=== PATIENT | female | born 1995 | race Caucasian/White ===

== ENCOUNTER → 2021-02-26 15:54 | Outpatient (CLI) | payer MEDICAID, SELFPAY ==
[2021-02-26 18:23] LABS: Absolute Lymphocyte Count 1.27 X10^3/uL (0.83-4.51); Absolute Neutrophil Count 3.9 X10^3/uL (2.0-7.7); Basophil# 0.01 X10^3/uL; Basophil% 0.2 % (0-1); Eosinophil# 0.07 X10^3/uL; Eosinophils% 1.2 % (0-5); Hematocrit 38.7 % (37-47); Hemoglobin 12.3 g/dL (12.0-15.0); Lymphocyte # 1.27 X10^3/ul (0.83-4.51); Lymphocyte % 22.4 % (19-41); Mean Corp Hgb Conc 31.8 g/dL (32-36); Mean Corpuscular Hgb 27.9 pg (27.0-32.0); Mean Corpuscular Volume 87.8 fL (81-99); Mean Platelet Vol. 11.4 fl (6.2-12.0); Monocyte# 0.37 X10^3/uL; Monocyte% 6.5 % (0-10); NRBC Flagged by Analyzer 0 % (0-5); Neutrophil # 3.94 X10^3/uL (2.7-7.7); Neutrophil % 69.5 % (47-70); Platelet Count 177 K/mm3 (150-450); RBC Distribution Width CV 13.5 % (11.6-14.6); RBC Distribution Width SD 43.8 fl (35.1-43.9); Red Blood Count 4.41 M/mm3 (4.2-5.4); White Blood Count 5.7 K/mm3 (4.4-11.0)
[2021-02-27 08:51] LABS: HIV - WCH Non-Reactive (Nonreactive); Hepatitis B Surface Antigen Non-Reactive (Nonreactive); Hepatitis C Antibody Non-Reactive (Nonreactive); Rubella IgG Reactive (Nonreactive); Syphilis Antibodies Non-reactive
[2021-03-01 03:07] LABS: Chlamydia By Nucleic Acid AMP Negative (Negative)
[2021-03-01 13:54] LABS: Gonococcus By Nucleic Acid AMP Negative (Negative)
[2021-03-06 07:43] LABS: HPV APTIMA, High Risk Negative (Negative)
[2021-03-06 07:44] LABS: HPV Reflexed? YES, CHARGE PATIENT
== END ==
PROVIDERS: Visit Provider Obstetrics & Gynecology
DX: Z34.82 Encounter for supervision of other normal pregnancy, second trimester (principal); Z12.4 Encounter for screening for malignant neoplasm of cervix; Z11.3 Encounter for screening for infections with a predominantly sexual mode of transmission
CPT/HCPCS: 36415; 85025; 86703; 86762; 86780; 86803; 87077; 87086; 87088; 87186; 87340; 87491; 87591; 87624; 88175; G0145

== ENCOUNTER 2021-04-13 10:53 | Day surgery (SDC) | payer MEDICAID, SELFPAY ==
[2021-04-12 17:09] LABS: Hematocrit 34.2 % (37-47); Mean Corp Hgb Conc 32.2 g/dL (32-36); Mean Corpuscular Hgb 28.2 pg (27.0-32.0); Mean Corpuscular Volume 87.7 fL (81-99); Platelet Count 207 K/mm3 (150-450); RBC Distribution Width CV 13.2 % (11.6-14.6); RBC Distribution Width SD 42.1 fl (35.1-43.9); White Blood Count 9.2 K/mm3 (4.4-11.0)
[2021-04-13] VITALS (7 sets, daily range): BP systolic 96–104; BP diastolic 54–58; PULSE 54–63; RESP 16; TEMP 36.3–36.7; O2SAT 99–100; BMI 22.1
[2021-04-13] MEDS: Lactated Ringers 1,000 ML 100 ML IV (12:05)
--- NOTE | 2021-04-13 12:30 | POC_PTH ---
PATIENT: PETE STEWART LOC: [facility] [place][id number] AGE/SX: 25/F ROOM: RE04/13/[address]: Dr. René Ruby MD : 1995 BED: DIS: 04/13/2021 SPEC #: [id number] RECD: 04/13/21 13:50 STATUS: LANDON NGUYEN #: [id number] LOREN: 04/13/21 12:[address]: René Ruby DEPT: SURGICAL PATHOLOGY RECD BY: Sherri Giron Tissues: Product of conception, NOS Procedures: Surgery Specimen Level IV HEADER OPERATION: Suction dilation and curettage PRE-OP DIAGNOSIS: Incomplete TISSUE SUBMITTED: Products of conception MICROSCOPIC DIAGNOSIS Endometrium, curettage: Chorionic villi, trophoblastic cells and decidualized tissue consistent with products of conception. AM:diego 04/17/2021 MICROSCOPIC DESCRIPTION Slides are reviewed. GROSS DESCRIPTION Received in fixative is one container labeled with the patient's name and designated products of conception. The specimen consists of multiple irregular fragments of red to dark chamorro soft tissue that in aggregate measure 6 x 5 x 0.3 cm. The specimen is totally submitted in three cassettes. / AM:diego 04/16/21 TC:5 CPT: 74473
--- NOTE | 2021-04-13 12:31 | PCM.HP.BLA ---
History and Physical Date of Admission: 04/13/21 Chief complaint: Incomplete History of present illness: 25-year-old G1, P0 with EDUARDO 10/20/2021 by 6wk u/s arrives with incomplete . Denies headache, vision change, chest pain, shortness of breath, nausea vomiting. Obstetric history: G1: Current Past medical history: Denies Medications: vitamin Past surgical history: [place] teeth extraction Allergies: No known drug allergies Social history: Denies smoking, alcohol use, drug use Family history: Denies history DVT or PE Review of systems: Besides above pertinent positives a full review of systems was performed and found to be negative Physical exam: Vitals: Blood pressure 104/55 pulse 63 respiratory rate 16 SpO2 100% on room air General: Normal-appearing no acute distress HEENT: Normocephalic atraumatic no cervical of adenopathy Cardiac/respiratory: No use of accessory muscles, nonlabored breathing Abdomen: Soft, nontender, gravid Extremities: No peripheral edema normal peripheral pulses Psych: Normal affect normal demeanor nonpressured speech Labs: White blood cell count 9.2 hemoglobin 11 hematocrit 34.2% platelets 207 blood type A+ antibody negative Assessment plan: 25-year-old with incomplete in need of suction dilation curettage. Patient understands risk of the procedure include but are not limited to visceral or vascular injury, prolonged hospitalization, blood loss need for transfusion, reoperation. Patient state understanding wish to proceed. Patient declines genetic training of tissue. All questions were answered consent was signed. For 200 mg of IV doxycycline preoperatively.
--- NOTE | 2021-04-13 13:15 | PCM.DC ---
Discharge Instructions Diet Discharge Diet: No restrictions Activity Discharge Activity: Return to Normal Activity, May Drive and May Shower May resume sexual activity in: 4-6 weeks Weight Bearing Status: Weight bearing as tolerated Dressing / Incision Call your doctor if your incision/area has: Continuous Slow Oozing and Foul Smelling Discharge Call your doctor if you observe: Fever of 101 or Higher, Shortness of breath and Chest pain Follow Up Care Please Follow Up With: René Ruby MD When: 2 weeks postoperatively Test Results: Test results from this visit will be discussed in further detail at your follow-up appointment, if applicable. Discharge Plan Admission Attending Provider: René Ruby Discharge Orders/Prescriptions Prescriptions: No Action pyridoxine (vitamin B6) [Vitamin B-6] 25 mg tablet 25 mg PO DAILY RF: 0 Disposition Discharge Orders: Discharge Patient (Routine); Ordered 04/13/21 Ordered By: Dr. René Ruby
--- NOTE | 2021-04-13 13:16 | PCM.OPRPT ---
Report of Operation Date of Procedure: 04/13/21 Pre-Operative Diagnosis: Incomplete Post-Operative Diagnosis: Incomplete Surgery/Procedure Performed:: Suction dilation curettage Description of Surgical Findings:: Surgeon: René Ruby MD Anesthesia: MAC EBL: 50 cc Urine output 125 cc IV fluids: 300 cc Complications none Specimen: Products of conception Findings: No bleeding noted at time of surgery. Cervix closed. 7 mm curved curette used. Products of conception sent to pathology Consent: Patient with incomplete elects for suction dilation curettage. Patient understands risk of the procedure include but are not limited to visceral or vascular injury, prolonged hospitalization, blood loss need for transfusion, reoperation. Patient stated understanding wished to proceed. All questions answered and consent was signed. Procedure: Patient was brought back to the OR where MAC anesthesia was found to be adequate. Patient was prepared and draped in dorsal lithotomy position with yellowfin stirrups. A weighted speculum is placed in the posterior aspect of the vagina and cervical dilators were used to dilate the cervix. 7 mm curved suction curette was used under direct visualization. Products of conception sent to pathology. Good hemostasis was noted. All counts correct x2. Patient tolerated the procedure well was brought to recovery in stable condition.
== END 2021-04-13 14:10 | disposition home or self-care (01) ==
LOC: SDC 10:57 → AC 10:58
PROVIDERS: Anesthesiology; Referring Provider Obstetrics & Gynecology; Visit Provider Obstetrics & Gynecology
PROC: (CPT 59812; principal; 2021-04-13 12:15)
DX: O03.4 Incomplete spontaneous abortion without complication (principal)
CPT/HCPCS: 59812; 36415; 85027; 86850; 86900; 86901; 87426; 88305; C9803; J7120; J2405

== ENCOUNTER → 2021-08-08 15:24 | Outpatient (CLI) | payer MEDICAID, SELFPAY ==
[2021-08-08 17:23] LABS: Absolute Lymphocyte Count 1.77 X10^3/uL (0.83-4.51); Absolute Neutrophil Count 6.3 X10^3/uL (2.0-7.7); Basophil# 0.02 X10^3/uL; Basophil% 0.2 % (0-1); Eosinophil# 0.06 X10^3/uL; Eosinophils% 0.7 % (0-5); Hematocrit 41.2 % (37-47); Hemoglobin 13.3 g/dL (12.0-15.0); Lymphocyte # 1.77 X10^3/ul (0.83-4.51); Lymphocyte % 20.3 % (19-41); Mean Corp Hgb Conc 32.3 g/dL (32-36); Mean Corpuscular Hgb 27.1 pg (27.0-32.0); Mean Corpuscular Volume 84.1 fL (81-99); Mean Platelet Vol. 12.2 fl (6.2-12.0); Monocyte# 0.54 X10^3/uL; Monocyte% 6.2 % (0-10); NRBC Flagged by Analyzer 0 % (0-5); Neutrophil # 6.28 X10^3/uL (2.7-7.7); Neutrophil % 72.3 % (47-70); POSITIVE COUNT YES; Platelet Count 153 K/mm3 (150-450); RBC Distribution Width CV 14.4 % (11.6-14.6); RBC Distribution Width SD 43.9 fl (35.1-43.9); White Blood Count 8.7 K/mm3 (4.4-11.0)
[2021-08-08 17:46] LABS: Differential Indicated SCAN CRITERIA MET
[2021-08-08 17:47] LABS: Differential Comment SCANNED
[2021-08-08 18:23] LABS: HIV - WCH Non-Reactive (Nonreactive); Hepatitis B Surface Antigen Non-Reactive (Nonreactive); Hepatitis C Antibody Non-Reactive (Nonreactive); Rubella IgG Reactive (Nonreactive); Syphilis Antibodies Non-reactive
[2021-08-11 00:06] LABS: Chlamydia By Nucleic Acid AMP Negative (Negative)
[2021-08-11 12:57] LABS: Gonococcus By Nucleic Acid AMP Negative (Negative)
== END ==
PROVIDERS: Visit Provider Obstetrics & Gynecology
DX: Z34.81 Encounter for supervision of other normal pregnancy, first trimester (principal); Z11.3 Encounter for screening for infections with a predominantly sexual mode of transmission
CPT/HCPCS: 36415; 85025; 86703; 86762; 86780; 86803; 87086; 87088; 87340; 87491; 87591

== ENCOUNTER 2021-12-04 11:03 | Outpatient (CLI) | payer MEDICAID, SELFPAY ==
[2021-12-04 11:42] LABS: Hematocrit 32.4 % (37-47); Hemoglobin 10.2 g/dL (12.0-15.0); Mean Corp Hgb Conc 31.5 g/dL (32-36); Mean Corpuscular Hgb 27.5 pg (27.0-32.0); Mean Corpuscular Volume 87.3 fL (81-99); Mean Platelet Vol. 11.4 fl (6.2-12.0); Platelet Count 185 K/mm3 (150-450); RBC Distribution Width SD 41.1 fl (35.1-43.9); Red Blood Count 3.71 M/mm3 (4.2-5.4); White Blood Count 9.3 K/mm3 (4.4-11.0)
[2021-12-04 12:01] LABS: Glucose Challenge Gest 1H 50g 99 mg/dL (70-140)
== END 2021-12-04 23:59 | disposition home or self-care (01) ==
LOC: WOBLAB 11:04
PROVIDERS: Visit Provider Obstetrics & Gynecology
DX: Z34.82 Encounter for supervision of other normal pregnancy, second trimester (principal)
CPT/HCPCS: 36415; 82950; 85027

== ENCOUNTER → 2022-02-26 | Outpatient (CLI) | payer MEDICAID, SELFPAY | END | disposition home or self-care (01) | PROVIDERS: Visit Provider Obstetrics & Gynecology | DX: Z36.85 Encounter for antenatal screening for Streptococcus B (principal) | CPT/HCPCS: 87077; 87081; 87186 ==

== ENCOUNTER 2022-03-13 02:00 | Outpatient (CLI) | payer MEDICAID, SELFPAY ==
[2022-03-13 02:25] VITALS: BP 108/58; PULSE 81; TEMP 36.7
[2022-03-13 02:28] VITALS: BMI 28.6
[2022-03-13 03:03] LABS: ROM Internal Control Test YES-OK TO RESULT pt. (Internal QC); ROM Patient Test Negative (Negative)
--- NOTE | 2022-03-13 07:00 | OB.TRI.NOTE ---
HPI - General General Date of Admission: 03/13/22 Date of Service: 03/13/22 Chief Complaint: leaking of fluid HPI Narrative PETE STEWART, is a 26 F who presents with c/o possible leaking of amniotic fluid at 38 3/7 wga by 7w US (EDUARDO 03/24/22) [facility] Medical History (Updated 03/14/22 @ 08:[address] Marcella Aranda MD) Alcohol use Back pain Dizziness Migraine headache Non-smoker Wears glasses Allergy/AdvReac Type Severity Reaction Status Date / Time No Known Allergies Allergy Verified 03/13/22 02:28 Surgical History (Updated 04/12/21 @ 13:33 by Anusha Perez) Hx of myringotomy Hx of wisdom tooth extraction Social History Smoking Status: Never smoker NST FHR Rate Baby A Baseline: 130 Variability:: Moderate Accelerations:: 15 x 15 Decelerations:: None NST Reactive:: Yes FHR Category:: Category I Uterine Activity:: 0/10 Assessment & Plan (1) 38 weeks gestation of : (2) False labor: PLAN: ROM plus negative d/c home
== END 2022-03-13 03:50 | disposition home or self-care (01) ==
LOC: WPOUT 02:10 → WP 02:10
PROVIDERS: Visit Provider Obstetrics & Gynecology
DX: O47.1 False labor at or after 37 completed weeks of gestation (principal); Z3A.38 38 weeks gestation of pregnancy
CPT/HCPCS: 59025; 59050; 84112; 99218; G0378

== ENCOUNTER 2022-03-29 00:06 | Inpatient (IN) | payer MEDICAID, SELFPAY ==
[2022-03-28 23:34] VITALS: BP 117/58; PULSE 82
[2022-03-28 23:37] VITALS: BMI 28.9
[2022-03-29] VITALS (54 sets, daily range): BP systolic 91–132; BP diastolic 54–94; PULSE 67–91; RESP 16; TEMP 36.2–36.7; O2SAT 88–100
[2022-03-29 00:05] LABS: ROM Internal Control Test YES-OK TO RESULT pt. (Internal QC)
[2022-03-29 00:06] LABS: ROM Patient Test POSITIVE (Negative)
[2022-03-29 00:43] LABS: Absolute Lymphocyte Count 1.89 X10^3/uL (0.83-4.51); Absolute Neutrophil Count 7.8 X10^3/uL (2.0-7.7); Basophil# 0.02 X10^3/uL; Basophil% 0.2 % (0-1); Eosinophil# 0.08 X10^3/uL; Eosinophils% 0.8 % (0-5); Hematocrit 28.4 % (37-47); Hemoglobin 8.4 g/dL (12.0-15.0); Lymphocyte # 1.89 X10^3/ul (0.83-4.51); Lymphocyte % 17.8 % (19-41); Mean Corp Hgb Conc 29.6 g/dL (32-36); Mean Corpuscular Hgb 20.5 pg (27.0-32.0); Mean Corpuscular Volume 69.4 fL (81-99); Mean Platelet Vol. 10.5 fl (6.2-12.0); Monocyte# 0.62 X10^3/uL; Monocyte% 5.8 % (0-10); NRBC Flagged by Analyzer 0.7 % (0-5); Neutrophil % 73.2 % (47-70); Platelet Count 227 K/mm3 (150-450); RBC Distribution Width CV 19.2 % (11.6-14.6); RBC Distribution Width SD 46.5 fl (35.1-43.9); Red Blood Count 4.09 M/mm3 (4.2-5.4); White Blood Count 10.6 K/mm3 (4.4-11.0)
[2022-03-29] MEDS: Lactated Ringers 1,000 ML 50 ML IV (00:48)
[2022-03-29] MEDS: LACTATED RINGERS 500 ML 999 ML IV ×3 (03:14→10:14)
[2022-03-29] MEDS: fentaNYL-bupivacaine (epidural) 100 ML BAG EPIDURAL ×2 (04:26→08:24)
[2022-03-29] MEDS: Penicillin G 3,000,000 Units 50 ML 100 UNITS IV ×2 (04:31→08:36)
[2022-03-29] MEDS: Oxytocin 30 units/NS 500 ml 30 UNITS/500 ML IV.SOLN IV (07:20)
--- NOTE | 2022-03-29 07:59 | PCM.HP.BLA ---
History and Physical Date of Admission: 03/29/22 HPI: 26-year-old G2, P0 at 40/5 weeks, EDUARDO 03/24/2020 2 by 7-week ultrasound, admitted for spontaneous rupture of membranes. Water broke around 2300 last night. Denies regular contractions, vaginal bleeding. Reports movement. Denies headache, vision changes, chest pain or shortness of breath, nausea or vomiting, fevers or chills, diarrhea or constipation. 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 [place] teeth extraction 2. Suction D&C Allergies: No known drug allergies Family history: Noncontributory Social history: Denies tobacco, alcohol, drug use Review of system: Negative otherwise stated above Physical exam: FHR: [place]: labs: A positive Rubella immune Syphilis nonreactive HIV nonreactive Hepatitis B/hepatitis C negative/negative Gonorrhea/chlamydia negative GBS positive Assessment & Plan Assessment/Plan (1) Spontaneous rupture of membranes: PLAN: 26-year-old at 40/5 weeks, admitted for spontaneous rupture of membranes. ? Admit to labor and delivery. ? Penicillin for GBS prophylaxis ? Augment labor with Pitocin ? Routine orders ? Anemia of . Hemoglobin 8.4 today. (2) Anemia affecting :
[2022-03-29] MEDS: Lactated Ringers 1,000 ML 200 ML IV (08:24)
[2022-03-29] MEDS: Oxytocin 30 units/NS 500 ml 30 UNITS/500 ML IV.SOLN 334 UNITS IV (10:52)
--- NOTE | 2022-03-29 11:07 | EX.PCM.OBRPT ---
Maternal Data Information Final EDUARDO: 03/24/22 Vaginal Delivery Operative Information Date of Procedure: 03/29/22 Pre-Operative Diagnosis: Single intrauterine at term Post-Operative Diagnosis: Single intrauterine at term Surgery / Procedure Performed: Spontaneous Vaginal Delivery Type of Anesthesia: Epidural Estimated Blood Loss: 350cc Findings Description of Procedure: Spontaneous vaginal delivery of viable infant female. Nuchal cord x1, loose, reduced. Cord clamped and cut, baby to nursing as patient wanted baby cleaned before going to her chest. Spontaneous delivery of placenta. Left labial abrasion, hemostatic with suture. Periurethral abrasion, hemostatic with suture. A Gender: Female (1 minute): 8 (5 minute): 9
--- NOTE | 2022-03-29 16:35 | NURSING ---
Left labial abrasion
[2022-03-29] MEDS: Acetaminophen 500 MG Tablet 1000 MG PO (18:58)
[2022-03-30 00:07] VITALS: BP 105/52; PULSE 77; PULSE 78; RESP 16; TEMP 36.9; O2SAT 96; O2SAT 98
[2022-03-30 03:49] VITALS: BP 110/58; PULSE 82
[2022-03-30 03:50] VITALS: BP 110/58; PULSE 82; RESP 16; TEMP 36.4
[2022-03-30] MEDS: Ibuprofen 600 MG Tablet PO (03:55)
--- NOTE | 2022-03-30 04:15 | PCM.PN.OB ---
Subjective Subjective day 1. Having some cramping and soreness, controlled with medication. Planning to exclusively pump. Objective Data Objective Data Vital Signs: Vital Signs Temp Pulse Resp BP Pulse Ox O2 Del Method 97.5 F L 82 16 110/58 L 96 Room Air 03/30/22 03:50 03/30/22 03:50 03/30/22 03:50 03/30/22 03:50 03/30/22 00:07 03/30/22 03:50 Oxygen Delivery Method Room Air Weight: 74 kg Body Mass Index (BMI) 28.9 Intake & Output: Intake and Output for Last 24 Hours 03/28/22 03/29/22 03/30/22 23:59 23:59 23:59 Intake Total 4102.40 / 4102.40 Output Total 3250 / 3250 Balance 852.40 / 852.40 Lab / Micro Data Attestation: I reviewed the patient's lab results. Result Diagrams: 03/29/22 00:30 Labs: Laboratory Results - last 24 hr 03/29/22 00:30: Blood Type A POSITIVE, Antibody Screen NEGATIVE Micro: Microbiology 03/29/22 00:30 Nasal Secretion SARS-CoV-2 Antigen (Rapid) - Final Physical Exam Const alert, oriented x3 and no apparent distress HEENT normocephalic Head and Scalp: atraumatic Neck full ROM Resp normal respiratory effort Cardio regular rate GI normal to inspection, nondistended, normoactive bowel sounds GI Narrative: Uterus 2 cm below umbilicus Back/Spine normal ROM Extremity normal to inspection Extremity Narrative: Minimal pedal edema Neuro no focal motor deficits and no sensory deficits noted Psych mental status grossly normal and affect normal Assessment & Plan (1) Vaginal delivery: PLAN: day 1 status post . Complicated by anemia of . CBC pending this morning. Planning to exclusively pump at this time. Discussed bringing in her breast pump for help with settings, if needed. Discharge pending CBC results. Discussed possibility of iron infusion today. (2) Anemia affecting :
--- NOTE | 2022-03-30 04:17 | DCINST_ITS ---
Discharge Instructions Diet Discharge Diet: No restrictions Activity Discharge Activity: Return to Normal Activity and May Shower May resume sexual activity in: 4-6 weeks Weight Bearing Status: Weight bearing as tolerated Lifting Restrictions: No greater than 25 pounds Dressing / Incision Call your doctor if you observe: Fever of 101 or Higher, Change in Color, Inability to urinate, Using more than 1 pad per hour, Shortness of breath, Dizziness, Swelling in the ankles, Chest pain and Calf discomfort Follow Up Care Please Follow Up With: René Ruby MD When: 2-week and 6-week visit Test Results: Test results from this visit will be discussed in further detail at your follow- up appointment, if applicable. Discharge Plan Admission Admit Date/Time: 03/29/22 00:06 Primary Reason for Your Visit: Vaginal delivery Attending Provider: Tammi Ruby Primary Care Provider: PARIS SPEARS Discharge Orders/Prescriptions Referrals / Follow Up: PARIS SPEARS [Other] Disposition Disposition (needs filled in before D/C Order can be placed): Home, Self Care
[2022-03-30 06:05] LABS: Hematocrit 26.2 % (37-47); Hemoglobin 7.5 g/dL (12.0-15.0); Mean Corp Hgb Conc 28.6 g/dL (32-36); Mean Corpuscular Hgb 20.4 pg (27.0-32.0); Mean Corpuscular Volume 71.2 fL (81-99); Mean Platelet Vol. 10.9 fl (6.2-12.0); Platelet Count 171 K/mm3 (150-450); RBC Distribution Width CV 18.9 % (11.6-14.6); RBC Distribution Width SD 47.8 fl (35.1-43.9); Red Blood Count 3.68 M/mm3 (4.2-5.4); White Blood Count 12.4 K/mm3 (4.4-11.0)
[2022-03-30 09:15] VITALS: BP 103/58; PULSE 80; RESP 16; TEMP 36.6
[2022-03-30] MEDS: 0.9% Saline Lock 10 ML Syringe IV (10:14)
== END 2022-03-30 12:10 | disposition home or self-care (01) | DRG 560 ==
LOC: WPOUT 00:14 → WP 00:14
PROVIDERS: Obstetrics & Gynecology; Admitting Provider Student in an Organized Health Care Education/Training Program; Visit Provider Student in an Organized Health Care Education/Training Program
DX: O69.81X0 Labor and delivery complicated by cord around neck, without compression, not applicable or unspecified (principal); Z37.0 Single live birth; O70.0 First degree perineal laceration during delivery; O99.02 Anemia complicating childbirth; O99.824 Streptococcus B carrier state complicating childbirth; Z3A.40 40 weeks gestation of pregnancy
CPT/HCPCS: 59025; 59050; 84112; 85025; 85027; 86850; 86900; 86901; 87426; 99218; J1756; J7120; A4216; G0378

== ENCOUNTER → 2023-05-26 | Outpatient (CLI) | payer OTHER, MEDICAID, SELFPAY ==
[2023-05-26 11:45] LABS: Absolute Lymphocyte Count 1.37 X10^3/uL (0.83-4.51); Absolute Neutrophil Count 4.4 X10^3/uL (2.0-7.7); Basophil# 0.02 X10^3/uL; Basophil% 0.3 % (0-1); Eosinophil# 0.09 X10^3/uL; Eosinophils% 1.4 % (0-5); Hematocrit 38.7 % (37-47); Hemoglobin 12.5 g/dL (12.0-15.0); Lymphocyte # 1.37 X10^3/ul (0.83-4.51); Mean Corp Hgb Conc 32.3 g/dL (32-36); Mean Corpuscular Hgb 27.7 pg (27.0-32.0); Mean Corpuscular Volume 85.8 fL (81-99); Mean Platelet Vol. 11.2 fl (6.2-12.0); Monocyte# 0.35 X10^3/uL; Monocyte% 5.6 % (0-10); NRBC Flagged by Analyzer 0 % (0-5); Neutrophil # 4.36 X10^3/uL (2.7-7.7); Neutrophil % 70.2 % (47-70); Platelet Count 165 K/mm3 (150-450); RBC Distribution Width CV 14.9 % (11.6-14.6); RBC Distribution Width SD 46.5 fl (35.1-43.9); Red Blood Count 4.51 M/mm3 (4.2-5.4); White Blood Count 6.2 K/mm3 (4.4-11.0)
[2023-05-26 19:06] LABS: HIV - WCH Non-Reactive (Nonreactive); Hepatitis B Surface Antigen Non-Reactive (Nonreactive); Hepatitis C Antibody Non-Reactive (Nonreactive); Rubella IgG Reactive (Nonreactive); Syphilis Antibodies Non-reactive
[2023-05-28 21:07] LABS: Chlamydia By Nucleic Acid AMP Negative (Negative); Gonococcus By Nucleic Acid AMP Negative (Negative)
[2023-05-30 17:01] LABS: HPV Reflexed? NOT INDICATED
== END | disposition home or self-care (01) ==
PROVIDERS: Referring Provider Registered Nurse; Visit Provider Registered Nurse
DX: Z34.90 Encounter for supervision of normal pregnancy, unspecified, unspecified trimester (principal)
CPT/HCPCS: 36415; 85025; 86703; 86762; 86780; 86803; 86850; 86900; 86901; 87086; 87340; 87491; 87591; 88175; G0145

== ENCOUNTER → 2023-07-15 | Outpatient (CLI) | payer OTHER, MEDICAID, SELFPAY ==
--- NOTE | 2023-07-15 14:30 | US_ITS ---
STUDY: SECOND AND THIRD TRIMESTER OBSTETRICAL ULTRASOUND REASON FOR EXAM: Female, 27 years old anatomy scan LMP: 02/27/2023 TECHNIQUE: Transabdominal TECHNICAL QUALITY: Adequate. PRIOR ULTRASOUND: None. FINDINGS: There is a single intrauterine fetus. The fetus is in a breech presentation. There is demonstrated cardiac activity with a heart rate of 143 bpm. There is a normal amniotic fluid volume. The largest amniotic fluid pocket measures 6.9 cm. The amniotic fluid index (NE) is cm. The placenta is anterior in location and is not low lying. There are Grade 0 placental changes. There is a prominent venous rasheed within the placenta. The cervix measures 3.0 cm in length. The bilateral adnexal regions are normal. BIOMETRY: BPD: 4.4 cm: 19 weeks, 3 days HC: 17.0 cm: 19 weeks, 4 days AC: 14.9 cm: 20 weeks, 1 days FL: 3.1 cm: 19 weeks, 4 days CI: 79.38 FL/BPD: 69.60 FL/HC: 18.24 FL/AC: 20.78 HC/AC: 1.14 age by current US: 19 weeks, 1 days. EDUARDO by current US: 12/08/2023. Estimated weight: 317 grams, +/- 48 grams, 52 %. age by prior US: weeks, days. EDUARDO by prior US: . Age by LMP: 19 weeks, 5 days. EDUARDO by LMP: 12/04/2023. ANATOMY: Gender: Female Cranium: Normal lateral ventricles. Normal choroid plexus. Normal cerebellum. Normal cisterna magna. Normal face, nose and lips. Chest: Normal 4-chamber heart. Abdomen/Pelvis: Normal diaphragm. Normal stomach. Normal abdominal wall. Normal cord insertion. Normal 3 vessel cord. Normal kidneys. Normal bladder. Spine: Normal cervical spine. Normal thoracic spine. Normal lumbar spine. Normal sacrum. Extremities: Normal bilateral upper extremities. Normal bilateral lower extremities. US/OB Anatomy w/ Transvaginal IMPRESSION: Living intrauterine of 19 weeks 1 day as described above. Electronically Signed: Jose Lopez MD at 18:11 EST , Refer to OB ultrasound. Electronically Signed: Jose Lopez MD at 18:11 EST ,
== END | disposition home or self-care (01) ==
LOC: OPUS 14:28 → US 14:30
PROVIDERS: Referring Provider Registered Nurse; Visit Provider Registered Nurse
DX: Z34.90 Encounter for supervision of normal pregnancy, unspecified, unspecified trimester (principal)
CPT/HCPCS: 76805; 76817

== ENCOUNTER → 2023-09-09 | Outpatient (CLI) | payer OTHER, MEDICAID, SELFPAY ==
[2023-09-09 09:37] LABS: Absolute Lymphocyte Count 1.56 X10^3/uL (0.83-4.51); Absolute Neutrophil Count 5.9 X10^3/uL (2.0-7.7); Basophil# 0.02 X10^3/uL; Basophil% 0.2 % (0-1); Eosinophil# 0.09 X10^3/uL; Eosinophils% 1.1 % (0-5); Hematocrit 33.7 % (37-47); Hemoglobin 10.5 g/dL (12.0-15.0); Lymphocyte # 1.56 X10^3/ul (0.83-4.51); Lymphocyte % 19.4 % (19-41); Mean Corp Hgb Conc 31.2 g/dL (32-36); Mean Corpuscular Hgb 27.1 pg (27.0-32.0); Mean Corpuscular Volume 86.9 fL (81-99); Mean Platelet Vol. 11.2 fl (6.2-12.0); Monocyte# 0.43 X10^3/uL; Monocyte% 5.3 % (0-10); NRBC Flagged by Analyzer 0 % (0-5); Neutrophil # 5.86 X10^3/uL (2.7-7.7); Platelet Count 160 K/mm3 (150-450); RBC Distribution Width CV 13.3 % (11.6-14.6); RBC Distribution Width SD 41.4 fl (35.1-43.9); Red Blood Count 3.88 M/mm3 (4.2-5.4)
[2023-09-09 09:51] LABS: Glucose Challenge Gest 1H 50g 138 mg/dL (70-140)
[2023-09-09 14:04] LABS: HIV - WCH Non-Reactive (Nonreactive); Syphilis Antibodies Non-reactive
== END | disposition home or self-care (01) ==
LOC: PAVLAB 09:12
PROVIDERS: Referring Provider Nurse Practitioner Women's Health; Visit Provider Nurse Practitioner Women's Health
DX: Z34.90 Encounter for supervision of normal pregnancy, unspecified, unspecified trimester (principal)
CPT/HCPCS: 36415; 82950; 85025; 86703; 86780

== ENCOUNTER → 2023-09-30 | Outpatient (CLI) | payer OTHER, MEDICAID, SELFPAY ==
--- OUTSIDE RECORDS SUMMARY | 2023-09-30 06:56 | XMS RPT_ITS | CCD ---
Author Name Unknown Address [address] [place] [address] Organization [facility] Care Team Providers Care Tennis Ball Cover Cementer Name Role Phone SLOAN HER Unavailable Unavailable Letty Dumont APRN.CNP Primary Care Provider LETTY DUMONT Primary Care Unavailable LETTY DUMONT Referring Unavailable LETTY DUMONT Primary Care Unavailable LETTY DUMONT Attending Unavailable Problems Problem Classification Problem Date Documented Da te Episodic/Chronic Malaise and fatigue (2 sources) Fatigue; Translations: [Other fatigue] Onset: 12-09-2022 Episodic Other screening for suspected conditions (not mental disorders or infectious disease) (5 sources) Patient encounter status; Translations: [Encounter for screening for lipoid disorders] Onset: 12-09-2022 Episodic Results Test Name Value Interpretation Reference Range Facil ity Vital Signs Date Time Vital Sign Value Performing Clinician Hope reeder 12-09-2022 12:50-0400 Body height 160 cm Letty Dumont APRN.CNP Work Phone: [facility] 12-09-2022 12:50-0400 Body weight 54.88 kg Letty Dumont APRN.CNP Work Phone: [facility] 12-09-2022 12:50-0400 Diastolic blood pressure 62 mm[Hg] Letty Dumont APRN.CNP Work Phone: [facility] 12-09-2022 12:50-0400 Heart rate 70 /min Letty Dumont APRN.CNP Work Phone: [facility] 12-09-2022 12:50-0400 Respiratory rate 14 /min Letty Dumont APRN.CNP Work Phone: [facility] 12-09-2022 12:50-0400 Systolic blood pressure 104 mm[Hg] Letty Dumont APRN.PROJECT HIRE Work Phone: [facility] Encounters Encounter Date Encounter Type Care Provider Facility Start: 05-03-2023 Telephone encounter Brittany Jean APRN.ELINOR Work Phone: [facility] Plan of Treatment Date Care Activity Detail Author Start: 12-10-2023 COVID-19 VACCINE (#1) COVID-19 VACCI NE (#1) [facility] Payers Date Payer Category Payer Medicaid [facility] MEDICA[place] [facility] [employer] MEDICAID [facility] [id number] 2022-Present [phone] [address] [place] [address] Medicaid [id number] 2022 Medicaid [id number] 2022 Private Health Insurance [facility] [id number] 2022-Present [phone] [address] [address] [place] [address] HMO [id number] 2022 Unknown [id number] [employer] ( and others) [id number] Social History Date Type Detail Facility Start: 12-09-2022 Tobacco smoking stat us [facility] Never smoked tobacco [facility] Start: 12-09-2022 Tobacco use and exposure Smokeless tobacco non-user [facility] Start: 12-09-2022 End: 05-02-2023 Alcohol intake Ex-drinker (finding) [facility] Start: 1995 Sex Assigned At Not on file [facility] Start: 12-09-2022 End: 05-02-2023 History of Social function [facility] Work Phone: Start: 12-09-2022 End: 05-02-2023 Tobacco use panel [facility] Work Phone: Adult Depression Screening Assessment 0 [facility] Work Phone: Note 05-03-2023 Telephone Encounter - Mary Quesada RN - 05/03/2023 9:26 AM EDTTelephone Encounter - Kassandra Chavez LPN - 05/03/2023 9:23 AM EDTTelephone Encounter - Kassandra Chavez LPN - 05/03/2023 9:21 AM EDT Note Date & Type Note Facility 05-03-2023 Miscellaneous Notes Formattin g of this note might be different from the original. Patient notified of results. Patient verbalizes understanding. Mary Quesada RN Left message for patient to return call. Kassandra Chavez LPN ----- Message from Brittany Verma APRN.PROJECT HIRE sent at 05/03/2023 8:12 AM EDT ----- Please advise patient the COVID, flu, RSV test was negative. documented in this encounter [facility] Progress note 05-02-2023 Note Date & Type Note Facility 05-02-2023 Note HNO ID: [id number] Author: Nolberto Hunt APRN.PROJECT HIRE Service: ? Author Type: Nurse Practitioner Type: Progress Notes Filed: 05/02/2023 6:13 PM Note Text: Subjective HPI Nontoxic-appearing female presents urgent care accompanied by significant other. Patient states she is . Is in her first trimester. 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 Chief complaint flulike symptoms. Duration of symptoms 3 days. Associated symptoms headache sore throat nasal congestion body aches chills loose stools. Patient states 8-10 loose stools yesterday. Less loose stools today. No blood in stool. Has not use any OTC medications. States child was sick similar signs symptoms. Denies any significant pain. Denies any difficulty staying hydrated. Denies any productive cough chest pain shortness of breath pleuritic pain hemoptysis nausea vomiting abdominal pain change in bowel or bladder habits. Past medical history prescription medication use and allergies reviewed. .Patient presents with: Head Congestion: ST, cough x 3 days History reviewed. No pertinent past medical history. PAST SURGICAL HISTORY Procedure Laterality Date DANDC, DIAG AND/OR THERAPEUTIC EXTRACTION, ERUPTED TOOTH OR EXPOSED ROOT (ELEVATION AND/OR FORCEPS REMOVAL) ALLERGIES Patient has no known allergies. MEDICATIONS No prescriptions on file. FAMILY HISTORY Problem Relation Age of Onset Hypertension Maternal Grandmother Social History Tobacco Use Smoking status: Never Smokeless tobacco: Never Vaping Use Vaping Use: Never used Substance Use Topics Alcohol use: Not Currently Drug use: Never BP 103/66 Pulse 78 Temp 37.1 ?C (98.7 ?F) Resp 18 Wt 52.9 kg (116 lb 9.6 oz) SpO2 98% BMI 20.65 kg/m? Review of Systems Constitutional: Positive for chills and malaise/fatigue. Negative for fever. HENT: Positive for congestion and sore throat. Negative for ear discharge, ear pain and sinus pain. Eyes: Negative for blurred vision, pain, discharge and redness. Respiratory: Positive for cough. Negative for hemoptysis, sputum production, shortness of breath, wheezing and stridor. Cardiovascular: Negative for chest pain. Gastrointestinal: Positive for diarrhea. Negative for abdominal pain, nausea and vomiting. Musculoskeletal: Positive for myalgias. Skin: Negative for itching and rash. Neurological: Positive for headaches. Negative for dizziness. Objective Physical Exam Constitutional: General: She is not in acute distress. Appearance: She is not diaphoretic. HENT: Head: Normocephalic. Jaw: No trismus, tenderness, swelling or pain on movement. Nose: Congestion present. Mouth/Throat: Mouth: Mucous membranes are moist. Pharynx: Oropharynx is clear. Uvula midline. No pharyngeal swelling, oropharyngeal exudate, posterior oropharyngeal erythema or uvula swelling. Eyes: Conjunctiva/sclera: Conjunctivae normal. Pupils: Pupils are equal, round, and reactive to light. Cardiovascular: Rate and Rhythm: Normal rate and regular rhythm. Heart sounds: Normal heart sounds. Pulmonary: Effort: Pulmonary effort is normal. No tachypnea, accessory muscle usage or respiratory distress. Breath sounds: Normal breath sounds. No stridor. No wheezing, rhonchi or rales. Abdominal: General: There is no distension. Palpations: Abdomen is soft. Tenderness: There is no abdominal tenderness. There is no guarding or rebound. Musculoskeletal: Cervical back: Normal range of motion and neck supple. No edema, erythema, rigidity or tenderness. No pain with movement. Normal range of motion. Lymphadenopathy: Cervical: No cervical adenopathy. Skin: General: Skin is warm and dry. Neurological: Mental Status: She is alert and oriented to person, place, and time. ASSESSMENT/PLAN: 1. Viral illness - ICD9: 079.99, ICD10: B34.9 - COVID AND INFLUENZA A/B AND RSV NAAT, ROUTINE - COVID NAAT, ROUTINE - ROUTINE FLU A/B + RSV Patient nontoxic-appearing. Hemodynamically stable. Suspicious of viral etiology for cause of illness. No evidence of bacterial infection noted today. Patient is currently in her first trimester. Will test for COVID-19 influenza RSV. Patient was educated on supportive therapies. Patient will follow up with primary care provider as needed. Patient was instructed to immediately proceed to emergency room for any new, worsening, or symptoms lasting longer than anticipated. The patient's clinical presentation is otherwise unremarkable at this time. Based on exam and clinical finding, the patient is stable for discharge. Plan of care was discussed with patient. Patient verbalizes understanding and agrees to plan of care. This note was generated using [employer] software. It may contain errors in wording, punctuation, or spelling. Nolberto Hunt APRN.ELINOR [facility] Progress note 05-02-2023 Note Date & Type Note Facility 05-02-2023 Note HNO ID: [id number] Author: Umm Santana APRN.PROJECT HIRE Service: ? Author Type: Nurse Practitioner Type: Progress Notes Filed: 05/02/2023 6:13 PM Note Text: Subjective The history is provided by the patient. No speech language pathologist assistant was used. HPI Jovita Lu is a 27 year old female who presents today for CC of sore throat and cough for a week. BP 103/66 Pulse 78 Temp 37.1 ?C (98.7 ?F) Resp 18 Wt 52.9 kg (116 lb 9.6 oz) SpO2 98% BMI 20.65 kg/m? Social History Tobacco Use Smoking status: Never Smokeless tobacco: Never Vaping Use Vaping Use: Never used Substance Use Topics Alcohol use: Not Currently Drug use: Never No past medical history on file. I have confirmed and edited as necessary, the [facility] Objective Physical Exam [facility] Note 12-10-2022 Telephone Encounter - Mary Quesada RN - 12/10/2022 8:49 AM EDTTelephone Encounter - Sandra Kirby RN - 12/10/2022 8:40 AM EDT Note Date & Type Note Facility 12-10-2022 Miscellaneous Notes Formattin g of this note might be different from the original. Patient notified of results and provider's instructions. Patient verbalizes understanding. Mary Quesada RN Call placed to patient with no answer. Message left to return call and ask to speak to a triage nurse to receive provider's message. Sandra Kirby RN Please let patient know her iron is low. I would like her to start ferrous sulfate 325mg daily. This medication is constipating so I would like her to take miralax 17gram daily since she already has constipation issue. documented in this encounter [facility] Progress note 12-09-2022 Note Date & Type Note Facility 12-09-2022 Note HNO ID: [id number] Author: Letty Dumont APRN.ELINOR Service: ? Author Type: Nurse Practitioner Type: Progress Notes Filed: 12/09/2022 1:40 PM Note Text: Chief Complaint Patient presents with: Establish Care HPI Jovita Lu is a 27 year old female who presents here today for Above Complaints.. Patient presents to establish [facility]. Patient has a 9 month old baby at home. She is not currently . Patient reports she has blood in her stool intermittently and is when she wipes however she also notices blood in the toilet occasionally. Patient also reports increased fatigue since having her baby. She reports baby sleeps through the night and that she gets adequate sleep. Patient reports that she has been cutting back on caffeine but still drinks mountain dew occasionally. Denies nausea, abdominal pain, vomiting, diarrhea. Past medical history, appointments, medications, allergies reviewed. Previous Medical History No past medical history on file. Previous Surgical History No past surgical history on file. Family History No family history on file. Patient Allergies ALLERGIES Not on File Current Medications No current outpatient medications on file prior to visit. No current facility-administered medications on file prior to visit. Social History Review of Symptoms REVIEW OF SYSTEMS GENERAL: Fatigue HEENT: Eyes Positive for blurred vision seeing eye doctor later this week NECK: Negative for lumps, goiter, pain and significant neck swelling RESPIRATORY: Negative for cough, hemoptysis, wheezing, COPD, dyspnea or shortness of breath CARDIOVASCULAR: Negative for chest pain, leg swelling, hypertension, CHF or palpitations GI: Constipation and Positive for nausea : No history of dysuria, frequency or incontinence MUSCULOSKELETAL: Negative for joint pain or swelling, back pain or muscle pain SKIN: Negative for lesions, rash, and itching PSYCH: Negative for sleep disturbance, mood disorder and recent psychosocial stressors HEMATOLOGY/LYMPHOLOGY: Negative for prolonged bleeding, bruising easily or swollen nodes ENDOCRINE: Negative for cold or heat intolerance, polyuria, polydipsia and goiter NEURO: Migraine headaches and Tension headaches EXAM: There were no vitals taken for this visit. General Appearance: Well appearing, alert, in no acute distress, well-hydrated, well nourished.. Skin: Skin color, texture, turgor normal, no suspicious rashes or lesions. Neck: Supple, no adenopathy; thyroid symmetric, normal size, no bruits. Lungs: Lungs clear to auscultation. No wheezing, rhonchi, rales.. Heart: RRR without murmur, gallop, or rubs. No ectopy. Abdomen: Normal abdominal exam, Abdomen soft, non-tender. Bowel sounds normal. No masses, organomegaly Extremities: No deformities, edema, skin discoloration, clubbing or cyanosis. Good capillary refill. . Peripheral Pulses: Normal. Neurologic: Gait normal. Reflexes normal and symmetric. Sensation grossly intact.. Rectal: 0.5cm protrusion palpated in the posterior surface of rectum. Health Maintenance List HEPATITIS B(1 of 3 - 3-dose series) Never done HPV VACCINE(1 - 2-dose series) Never done HEPATITIS C SCREENING Never done HIV SCREENING Never done DTAP,TDAP,TD(1 - Tdap) Never done PAP TESTING Never done DEPRESSION ASSESSMENT Never done COVID-19 VACCINE(1) due on 12/10/2023 INFLUENZA(Season Ended) due on 05/02/2023 ASSESSMENT/PLAN: 1. Encounter for lipid screening for cardiovascular disease - ICD9: V77.91, V81.2, ICD10: Z13.220, Z13.6 (primary diagnosis) - LIPID PANEL, NONFASTING 2. Screening for diabetes mellitus - ICD9: V77.1, ICD10: Z13.1 - HGB A1C 3. Wellness examination - ICD9: V70.0, ICD10: Z00.00 - Counseled on healthy diet and regular exercise - Calcium intake with supplements or by diet of 1000 mg/day for under 50, 5198-8059 mg/day for 50+ - Depression screening tool completed and reviewed with patient. Based on score and interview, patient is not at risk for depression and recommended no further intervention at this time. - Follow up for annual exam in one year - CBC + DIFF - COMP METABOLIC PANEL 4. Fatigue, unspecified type - ICD9: 780.79, ICD10: R53.83 - TSH BLD - IRON + TIBC - FERRITIN BLD Letty Dumont APRN.CNP [facility] Instructions 12-09-2022 Patient Instructions Note Date & Type Note Facility 12-09-2022 Instructions Letty Dumont APRN.CNP - 12/09/2022 1:05 PM EDT Complete labwork Follow up in 1 year documented in this encounter [facility] History of Present illness Narrative 12-09-2022 Letty Dumont APRN.CNP - 12/09/2022 12:51 PM EDT Note Date & Type Note Facility 12-09-2022 History of Presen t illness Narrative Chief Complaint Patient presents with: [facility] HPI Jovita Lu is a 27 year old female who presents here today for Above Complaints.. Patient presents to [facility]. Patient has a 9 month old baby at home. She is not currently . Patient reports she has blood in her stool intermittently and is when she wipes however she also notices blood in the toilet occasionally. Patient also reports increased fatigue since having her baby. She reports baby sleeps through the night and that she gets adequate sleep. Patient reports that she has been cutting back on caffeine but still drinks mountain dew occasionally. Denies nausea, abdominal pain, vomiting, diarrhea. Past medical history, appointments, medications, allergies reviewed. Previous Medical History No past medical history on file. Previous Surgical History No past surgical history on file. Family History No family history on file. Patient Allergies ALLERGIES Not on File Current Medications No current outpatient medications on file prior to visit. No current facility-administered medications on file prior to visit. Social History Review of Symptoms REVIEW OF SYSTEMS GENERAL: Fatigue HEENT: Eyes Positive for blurred vision seeing eye doctor later this week NECK: Negative for lumps, goiter, pain and significant neck swelling RESPIRATORY: Negative for cough, hemoptysis, wheezing, COPD, dyspnea or shortness of breath CARDIOVASCULAR: Negative for chest pain, leg swelling, hypertension, CHF or palpitations GI: Constipation and Positive for nausea : No history of dysuria, frequency or incontinence MUSCULOSKELETAL: Negative for joint pain or swelling, back pain or muscle pain SKIN: Negative for lesions, rash, and itching PSYCH: Negative for sleep disturbance, mood disorder and recent psychosocial stressors HEMATOLOGY/LYMPHOLOGY: Negative for prolonged bleeding, bruising easily or swollen nodes ENDOCRINE: Negative for cold or heat intolerance, polyuria, polydipsia and goiter NEURO: Migraine headaches and Tension headaches EXAM: There were no vitals taken for this visit. General Appearance: Well appearing, alert, in no acute distress, well-hydrated, well nourished.. Skin: Skin color, texture, turgor normal, no suspicious rashes or lesions. Neck: Supple, no adenopathy; thyroid symmetric, normal size, no bruits. Lungs: Lungs clear to auscultation. No wheezing, rhonchi, rales.. Heart: RRR without murmur, gallop, or rubs. No ectopy. Abdomen: Normal abdominal exam, Abdomen soft, non-tender. Bowel sounds normal. No masses, organomegaly Extremities: No deformities, edema, skin discoloration, clubbing or cyanosis. Good capillary refill. . Peripheral Pulses: Normal. Neurologic: Gait normal. Reflexes normal and symmetric. Sensation grossly intact.. Rectal: 0.5cm protrusion palpated in the posterior surface of rectum. Health Maintenance List HEPATITIS B(1 of 3 - 3-dose series) Never done HPV VACCINE(1 - 2-dose series) Never done HEPATITIS C SCREENING Never done HIV SCREENING Never done DTAP,TDAP,TD(1 - Tdap) Never done PAP TESTING Never done DEPRESSION ASSESSMENT Never done COVID-19 VACCINE(1) due on 12/10/2023 INFLUENZA(Season Ended) due on 05/02/2023 ASSESSMENT/PLAN: 1. Encounter for lipid screening for cardiovascular disease - ICD9: V77.91, V81.2, ICD10: Z13.220, Z13.6 (primary diagnosis) - LIPID PANEL, NONFASTING 2. Screening for diabetes mellitus - ICD9: V77.1, ICD10: Z13.1 - HGB A1C 3. Wellness examination - ICD9: V70.0, ICD10: Z00.00 - Counseled on healthy diet and regular exercise - Calcium intake with supplements or by diet of 1000 mg/day for under 50, 9161-0802 mg/day for 50+ - Depression screening tool completed and reviewed with patient. Based on score and interview, patient is not at risk for depression and recommended no further intervention at this time. - Follow up for annual exam in one year - CBC + DIFF - COMP METABOLIC PANEL 4. Fatigue, unspecified type - ICD9: 780.79, ICD10: R53.83 - TSH BLD - IRON + TIBC - FERRITIN BLD Letty Dumont APRN.PROJECT HIRE documented in this encounter [facility] Evaluation note Note Date & Type Note Facility documented in this encounter [facility] Summary Purpose Family History No Family History Records FoundNo Family History Records FoundNo Family History Records Found Advance Directives No Advanced Directives Records FoundNo Advanced Directives Records FoundNo Advanced Directives Records Found Health Concerns Infection Onset Date Last Indicated Resolved Time COVID-19 Rule-Out 05/02/2023 05/02/2023 05/03/2023 5:15 AM EDT Additional Source Comments INFORMATION SOURCE (unrecogn ized section and content) DATE CREATED AUTHOR AUTHOR'S ORGANIZ ATION 12/27/2020 [facility] DATE CREATED AUTHOR AUTHOR'S ORGANIZ ATION 05/03/2023 [facility] Source Comments (unrecognize d section and content) In the event this informatio n is protected by the Federal Confidentiality of Alcohol and Drug Abuse Patient Records regulations: The Federal rules restrict any use of the information to criminally investigate or prosecute any alcohol or drug abuse patient.[facility] the event this information is protected by the Federal Confidentiality of Alcohol and Drug Abuse Patient Records regulations: The Federal rules restrict any use of the information to criminally investigate or prosecute any alcohol or drug abuse patient.[facility] System[facility] the event this information is protected by the Federal Confidentiality of Alcohol and Drug Abuse Patient Records regulations: The Federal rules restrict any use of the information to criminally investigate or prosecute any alcohol or drug abuse patient.[facility] Reason for Visit (unrecogniz ed section and content) Reason Comments Results Care Teams (unrecognized sec tion and content) Tennis Ball Cover Cementer Relationship Specialty Start Date End Date Letty Dumont APRN.[facility] [address] [place] [address] PCP - General Family Medicine 12/09/22 Tennis Ball Cover Cementer Relationship Specialty Start Date End Date Letty Dumont APRN.PROJECT HIRE [address] [place] [address] PCP - General Family Medicine 12/09/22 FOR RECORDS PERTAINING TO PATIENTS WHO ARE OR HAVE BEEN ENROLLED IN A CHEMICAL DEPENDENCY/SUBSTANCEABUSE PROGRAM, SOME INFORMATION MAY BE OMITTED. This clinical summary was aggregated from multiple sources. Caution should be exercised in using it in the provision of clinical care. This summary normalizes information from multiple sources, and as a consequence, information in this document may materially change the coding, format and clinical context of patient data. In addition, data may be omitted in some cases. CLINICAL DECISIONS SHOULD BE BASED ON THE PRIMARY CLINICAL RECORDS. [employer] [facility]. provides no warranty or guarantee of the accuracy or completeness of information in this document.
[2023-09-30 08:02] LABS: Glucose GTT-Gestation. Fasting 83 mg/dL (<105)
[2023-09-30 08:43] LABS: Glucose GTT-Gestational 1 Hr 141 mg/dL (<190)
[2023-09-30 10:32] LABS: Glucose GTT-Gestational 2 Hr 111 mg/dL (<165)
[2023-09-30 11:18] LABS: Glucose GTT-Gestational 3 Hr 114 L (<145)
== END | disposition home or self-care (01) ==
LOC: LAB 06:54
PROVIDERS: Obstetrics & Gynecology; Referring Provider Nurse Practitioner Women's Health; Visit Provider Nurse Practitioner Women's Health
DX: O99.810 Abnormal glucose complicating pregnancy (principal); Z3A.00 Weeks of gestation of pregnancy not specified
CPT/HCPCS: 36415; 82951; 82952

== ENCOUNTER → 2023-10-13 | Outpatient (CLI) | payer OTHER, MEDICAID, SELFPAY ==
--- NOTE | 2023-10-13 15:18 | US_ITS ---
STUDY: SECOND AND THIRD TRIMESTER OBSTETRICAL ULTRASOUND - LIMITED REASON FOR EXAM: Female, 28 years old Uterine size-date discrepancy LMP: 02/27/2023 PRIOR ULTRASOUND: 07/15/2023 TECHNIQUE: Transabdominal TECHNICAL QUALITY: Adequate. FINDINGS: There is a single intrauterine fetus. The fetus is in a cephalic presentation. There is demonstrated cardiac activity with a heart rate of 152 bpm. There is a normal amniotic fluid volume. The largest amniotic fluid pocket measures 4.5 cm. The amniotic fluid index (NE) is 16.6 cm. The placenta is anterior in location and is not low lying. There are Grade 1 placental changes. The cervix measures 3.0 cm in length. BIOMETRY: BPD: 7.81 cm: 31 weeks, 2 days HC: 28.67 cm: 31 weeks, 4 days AC: 27.99 cm: 32 weeks, 0 days FL: 6.33 cm: 32 weeks, 5 days Age by LMP: 32 weeks, 4 days. EDUARDO by LMP: 12/04/2023. . age by current US: 31 weeks, 3 days. EDUARDO by current US: 12/12/2023. Estimated weight: 1931 grams, +/- 290 grams, 30 percentile. Gender: Indeterminant US/OB Limited With Biometrics IMPRESSION: Live intrauterine with estimated gestational age of 32 weeks 4 days with estimated date of confinement of 12/04/2023 with weight of 1931g at 30th percentile. Electronically Signed: Roger Singer DO at 17:07 EST ,
--- OUTSIDE RECORDS SUMMARY | 2023-10-13 19:56 | XMS RPT_ITS | CCD ---
Author Name Unknown Address [address] [place] [address] Organization [facility] Care Team Providers Care It Security Administrator Name Role Phone SLOAN HER Unavailable Unavailable [...] 160 cm Letty Dumont APRN.CNP Work Phone: [facility] 12-09-2022 12:50-0400 Body weight 54.88 kg Letty Dumont APRN.CNP Work Phone: [facility] 12-09-2022 12:50-0400 Diastolic blood pressure 62 mm[Hg] Letty Dumont APRN.CNP Work Phone: [facility] 12-09-2022 12:50-0400 Heart rate 70 /min Letty Dumont APRN.CNP Work Phone: [facility] 12-09-2022 12:50-0400 Respiratory rate 14 /min Letty Dumont APRN.CNP Work Phone: [facility] 12-09-2022 12:50-0400 Systolic blood pressure 104 mm[Hg] Letty Dumont APRN.BASIN CLEANER Work Phone: [facility] Encounters Encounter Date Encounter Type Care Provider Facility Start: 05-03-2023 Telephone encounter Brittany Jean APRN.ELINOR Work Phone: [facility] Plan of Treatment Date Care Activity Detail Author Start: 12-10-2023 COVID-19 VACCINE (#1) COVID-19 VACCI NE (#1) [facility] Payers Date Payer Category Payer Medicaid [facility] MEDICA[facility] MEDICAID [facility] [id number] 2022-Present [phone] [address] [place] [address] Medicaid [id number] 2022 Medicaid [id number] 2022 Private Health Insurance [facility] [employer] [id number] 2022-Present [phone] [address] [address] [place] [address] HMO [id number] 2022 Unknown [id number] [employer] ( and others) [id number] Social History Date Type Detail Facility Start: 12-09-2022 Tobacco smoking stat us HIIS Never smoked tobacco [facility] Start: 12-09-2022 Tobacco use and exposure Smokeless tobacco non-user [facility] Start: 12-09-2022 End: 05-02-2023 Alcohol intake Ex-drinker (finding) [facility] Start: 1995 Sex Assigned At Not on file [facility] Start: 12-09-2022 End: 05-02-2023 History of Social function [facility] Work Phone: Start: 12-09-2022 End: 05-02-2023 Tobacco use panel [facility] Work Phone: Adult Depression Screening Assessment 0 [facility] Work Phone: Note 05-03-2023 Telephone Encounter - [...] Chavez LPN ----- Message from Brittany Verma APRN.BASIN CLEANER sent at 05/03/2023 8:12 AM EDT ----- Please advise patient the COVID, flu, RSV test was negative. documented in this encounter [facility] Progress note 05-02-2023 Note Date & Type Note Facility 05-02-2023 Note HNO ID: [id number] Author: Nolberto Hunt APRN.BASIN CLEANER Service: ? Author Type: Nurse Practitioner Type: Progress Notes Filed: 05/02/2023 6:13 PM Note Text: Subjective HPI Nontoxic-appearing female presents urgent care accompanied by significant other. Patient states she is . Is in her first trimester. Has not seen [facility] yet. Chief complaint flulike symptoms. Duration of [...] of care. This note was generated using [employer] software. It may contain errors in wording, punctuation, or spelling. Nolberto Hunt APRN.ELINOR [facility] Progress note 05-02-2023 Note Date & Type Note Facility 05-02-2023 Note HNO ID: [id number] Author: Umm Santana APRN.BASIN CLEANER Service: ? Author Type: Nurse Practitioner Type: Progress Notes Filed: 05/02/2023 6:13 PM Note Text: Subjective The history is provided by the patient. No humanities and languages professor was used. HPI Jovita Lu is a [...] have confirmed and edited as necessary, the [facility] ROS Objective Physical Exam [facility] Note 12-10-2022 Telephone Encounter - [...] has constipation issue. documented in this encounter [facility] Progress note 12-09-2022 Note Date & Type Note Facility 12-09-2022 Note HNO ID: [id number] Author: Letty Dumont APRN.ELINOR Service: ? Author Type: Nurse Practitioner Type: Progress Notes Filed: 12/09/2022 1:40 PM Note Text: Chief Complaint Patient presents with: Establish Care HPI Jovita Lu is a 27 year old female who presents here today for Above Complaints.. Patient presents to establish [facility]. Patient has a 9 month old [...] diet of 1000 mg/day for under 50, 5732-3680 mg/day for 50+ - Depression screening tool [...] TIBC - FERRITIN BLD Letty Dumont APRN.CNP [facility] Instructions 12-09-2022 Patient Instructions Note Date & Type Note Facility 12-09-2022 Instructions Letty Dumont APRN.CNP - 12/09/2022 1:05 PM EDT Complete labwork Follow up in 1 year documented in this encounter [facility] History of Present illness Narrative 12-09-2022 Letty Dumont APRN.CNP - 12/09/2022 12:51 PM EDT Note Date & Type Note Facility 12-09-2022 History of Presen t illness Narrative Chief Complaint Patient presents with: [facility] HPI Jovita Lu is a 27 year old female who presents here today for Above Complaints.. Patient presents to the [facility]. Patient has a 9 month old baby [...] diet of 1000 mg/day for under 50, 0200-1231 mg/day for 50+ - Depression screening tool [...] + TIBC - FERRITIN BLD Letty Dumont APRN.BASIN CLEANER documented in this encounter [facility] Evaluation note Note Date & Type Note Facility documented in this encounter [facility] Summary Purpose Family History No Family History [...] DATE CREATED AUTHOR AUTHOR'S ORGANIZ ATION 12/27/2020 [facility] DATE CREATED AUTHOR AUTHOR'S ORGANIZ ATION 05/03/2023 [facility] Source Comments (unrecognize d section and content) In the event this informatio n is protected by the Federal Confidentiality of Alcohol and Drug Abuse Patient Records regulations: The Federal rules restrict any use of the information to criminally investigate or prosecute any alcohol or drug abuse patient.[facility] the event this information is protected by the Federal Confidentiality of Alcohol and Drug Abuse Patient Records regulations: The Federal rules restrict any use of the information to criminally investigate or prosecute any alcohol or drug abuse patient.[facility] the event this information is protected by the Federal Confidentiality of Alcohol and Drug Abuse Patient Records regulations: The Federal rules restrict any use of the information to criminally investigate or prosecute any alcohol or drug abuse patient.[facility] Reason for Visit (unrecogniz ed section and content) Reason Comments Results Care Teams (unrecognized sec tion and content) It Security Administrator Relationship Specialty Start Date End Date Letty Dumont APRN.[facility] [address] [place] [address] PCP - General Family Medicine 12/09/22 It Security Administrator Relationship Specialty Start Date End Date Letty Dumont APRN.BASIN CLEANER [address] [place] [address] PCP - General Family Medicine 12/09/22 FOR [...] BE BASED ON THE PRIMARY CLINICAL RECORDS. [employer] [facility]. provides no warranty or guarantee of the accuracy or completeness of information in this document.
== END | disposition home or self-care (01) ==
PROVIDERS: Referring Provider Obstetrics & Gynecology; Visit Provider Obstetrics & Gynecology
DX: O26.843 Uterine size-date discrepancy, third trimester (principal); Z3A.00 Weeks of gestation of pregnancy not specified
CPT/HCPCS: 76816

== ENCOUNTER → 2023-11-07 | Outpatient (CLI) | payer OTHER, MEDICAID, SELFPAY | END | disposition home or self-care (01) | PROVIDERS: Referring Provider Registered Nurse; Visit Provider Registered Nurse | DX: Z34.90 Encounter for supervision of normal pregnancy, unspecified, unspecified trimester (principal) | CPT/HCPCS: 87077; 87081; 87186 ==

== ENCOUNTER 2023-11-21 11:40 | Outpatient (CLI) | payer OTHER, MEDICAID, SELFPAY ==
--- NOTE | 2023-11-21 11:45 | US_ITS ---
STUDY: SECOND AND THIRD TRIMESTER OBSTETRICAL ULTRASOUND - LIMITED REASON FOR EXAM: Female, 28 years old uterine size date discrepancy LMP: February 27, 2023. PRIOR ULTRASOUND: Comparison is made with prior study dated October 13, 2023. TECHNIQUE: Transabdominal TECHNICAL QUALITY: Adequate. FINDINGS: There is a single intrauterine fetus. The fetus is in a cephalic presentation. There is demonstrated cardiac activity with a heart rate of 141 bpm. There is a normal amniotic fluid volume. The largest amniotic fluid pocket measures 5.1 cm. The amniotic fluid index (NE) is 20 cm. The placenta is anterior in location and is not low lying. There are Grade 1 placental changes. The cervix was not measured due to the head position. BIOMETRY: BPD: 8.96 cm: 36 weeks, 2 days HC: 32.9 cm: 37 weeks, 2 days AC: 34 cm: 37 weeks, 6 days FL: 6.4 cm: 33 weeks, 0 days Age by LMP: 38 weeks, 1 days. EUDARDO by LMP: December 04, 2023. age by prior US: 37 weeks, 0 days. EDUARDO by prior US: December 12, 2023. age by current US: 36 weeks, 3 days. EDUARDO by current US: December 16, 2023. Estimated weight: 2950 grams, +/- 442 grams, 23 percentile. US/OB Limited With Biometrics IMPRESSION: Single live intrauterine gestation with a mean gestational age of 37 weeks. The measurements obtained today fall within the normal expected range. Electronically Signed: Maury Carlson MD at 15:09 EDT ,
[2023-11-21 11:51] VITALS: BMI 27.7
[2023-11-21 12:05] VITALS: BP 144/65; PULSE 90
[2023-11-21 12:22] VITALS: BP 103/62; PULSE 81
[2023-11-21 12:36] VITALS: BP 102/60; PULSE 71
[2023-11-21 12:51] VITALS: BP 103/62; PULSE 76
--- NOTE | 2023-11-21 15:05 | OB.TRI.PN ---
Progress Notes Date of Service: 11/21/23 Progress Note: Patient presents for triage evaluation secondary to uterine size less than dates in the office. FHT: 125 Moderate variability reactive no decelerations category I tracing [place]: no Contractions Assessment and plan: normal growth and NE, noted shortened long bone. Reactive NST, reassuring maternal and status patient discharged to home to follow-up in the office. See problem list details for additional plan information. Charges/Coding Multi Select Codes Urinary/Genital Urinary/Genital CPT Codes: 44767-96 non-stress test Interp Assessment & Plan (1) Positive GBS test: COMMENT: treatment in labor. PCN (2) Uterine size-date discrepancy, third trimester: COMMENT: noted shortened long bone on US. consider IOL at 39 weeks. growth US (30%) normal ne at 34 weeks (3) Anemia during : COMMENT: add FE (4) Abnormal glucose affecting : COMMENT: 3HR-passed (5) Placental abnormality: QUALIFIERS: Trimester: second trimester Qualified Code(s): O43.102 - Malformation of placenta, unspecified, second trimester COMMENT: placenta lakes seen (6) Supervision of high-risk : QUALIFIERS: Trimester: second trimester Qualified Code(s): O09.92 - Supervision of high risk , unspecified, second trimester COMMENT: [id number] [place] 12/04/[birth year]23 girl PC: Angie. partner: chaitanya (7) History of depression: COMMENT: without medications/counseling (8) : QUALIFIERS: Weeks of gestation: 38 weeks Qualified Code(s): Z3A.38 - 38 weeks gestation of COMMENT: declines nipt,carrier and ntd. reviewed anatomy. +placenta lakes.
== END 2023-11-21 15:15 | disposition home or self-care (01) ==
LOC: WPOUT 11:45 → WP 11:45
PROVIDERS: Referring Provider Advanced Practice Midwife; Visit Provider Advanced Practice Midwife
DX: O26.843 Uterine size-date discrepancy, third trimester (principal); Z3A.38 38 weeks gestation of pregnancy; O99.820 Streptococcus B carrier state complicating pregnancy; O99.013 Anemia complicating pregnancy, third trimester
CPT/HCPCS: 59025; 59050; 76816; 99221; G0378

== ENCOUNTER 2023-11-25 12:40 | Inpatient (IN) | payer OTHER, MEDICAID, SELFPAY ==
[2023-11-25] VITALS (47 sets, daily range): BP systolic 97–127; BP diastolic 50–71; PULSE 69–91; RESP 16–19; TEMP 36.5–37.3; O2SAT 94–100; BMI 28.0
[2023-11-25] MEDS: Lactated Ringers 1,000 ML 50 ML IV (14:15)
[2023-11-25 14:30] LABS: Absolute Neutrophil Count 6.9 X10^3/uL (2.0-7.7); Basophil# 0.02 X10^3/uL; Basophil% 0.2 % (0-1); Eosinophil# 0.04 X10^3/uL; Eosinophils% 0.4 % (0-5); Hematocrit 34.2 % (37-47); Hemoglobin 10.2 g/dL (12.0-15.0); Lymphocyte % 15.4 % (19-41); Mean Corp Hgb Conc 29.8 g/dL (32-36); Mean Corpuscular Hgb 23.4 pg (27.0-32.0); Mean Corpuscular Volume 78.4 fL (81-99); Mean Platelet Vol. 10.8 fl (6.2-12.0); Monocyte# 0.62 X10^3/uL; Monocyte% 6.8 % (0-10); NRBC Flagged by Analyzer 0 % (0-5); Neutrophil # 6.89 X10^3/uL (2.7-7.7); Neutrophil % 75.8 % (47-70); Platelet Count 170 K/mm3 (150-450); RBC Distribution Width CV 19.1 % (11.6-14.6); RBC Distribution Width SD 52.7 fl (35.1-43.9); Red Blood Count 4.36 M/mm3 (4.2-5.4); White Blood Count 9.1 K/mm3 (4.4-11.0)
[2023-11-25] MEDS: Oxytocin 15 Units/NS 250ml 15 UNITS/250 ML IV.SOLN 2 UNITS IV (14:38)
[2023-11-25] MEDS: Penicillin G Pot 5,000,000 UNITS in 0.9% Normal Saline (100mL MB+) 100 ML 150 UNITS IV (14:47)
[2023-11-25 15:01] LABS: Syphilis Antibodies Non-reactive
[2023-11-25] MEDS: 0.9% Normal Saline Single 100 ML IV.SOLN. INTRA-UTER (15:29)
[2023-11-25] MEDS: LACTATED RINGERS 500 ML 999 ML IV ×2 (18:00→20:15)
[2023-11-25] MEDS: Penicillin G 3,000,000 Units 50 ML 100 UNITS IV (18:43)
--- NOTE | 2023-11-25 19:53 | HP.PCM.OB_ITS ---
HPI - General General Date of Admission: 11/25/23 HPI Narrative PETE STEWART, is a 28 F who presents for induction of labor secondary to decreased movement. Patient was seen in the office and had decreased movement increasing over the last day, and NST that was nonreactive and therefore was sent down for induction of labor. She had an ultrasound last week that showed short and long bones otherwise within normal limits. Maternal Data Information EDUARDO Calculator Estimated Delivery Date Method Current WG Current Estimate 12/04/23 Ultrasound #1 38w 6d Other Estimates 01/03/24 LMP (Uncertain) 34w 4d [facility] Medical History (Updated 11/26/23 @ 01:[address] Peggy Jauregui MD) 38 weeks gestation of Alcohol use Anemia Anemia affecting Back pain Dizziness False labor Migraine headache Non-smoker Spontaneous rupture of membranes Vaginal delivery Wears glasses Home Medications multivitamin no.47-iron fum 27 mg-folate no.1 1 mg-dha 300 mg capsule (PNV-DHA) 1 cap PO DAILY 05/26/23 [History Last Taken 11/24/23 20:00 1 cap] ferrous sulfate 325 mg (65 mg iron) tablet 325 mg PO DAILY 11/07/23 [History Last Taken 11/24/23 20:00 325 mg] ibuprofen 200 mg tablet (Advil) 400 mg PO PRN lower back pain 11/25/23 [History Last Taken 11/23/23 20:00 400 mg] Allergy/AdvReac Type Severity Reaction Status Date / Time No Known Allergies Allergy Verified 11/25/23 13:03 Family History Other Hx of wisdom tooth extraction Surgical History H/O dilation and curettage Hx of myringotomy Hx of wisdom tooth extraction Social History adopted: No household members: family housing: house number of children: 1 current occupational status: employed 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[employer] current occupational exposures/hazards: Yes pets and animals: Yes (not managing litter box) pets and animals: cat(s), dog(s), bird(s), snake(s) and farm animals history of recent travel: No sexually active: Yes Smoking Status: Never smoker alcohol intake: former details: not while substance use type: does not use seatbelt use: always do you feel safe at home: Yes additional social history: spouse is willow worker, daughter Angie History 3 Elective abortions Hx Para 1 Spontaneous abortions 1 Hx # Term Pregnancies 1 Ectopic pregnancies Hx # Pregnancies Multiple births # of living children 1 Past Pregnancies Del. Date Name GA/Weeks Outcome Route Bth Weight Infant Gen Labor Lgth Anes thesia Del Locatn Provider FOB 04/13/21 6 spontaneous 03/29/22 Angie 40 live - full term 7#14 Female [facility] Tammi Castro Visit Details Expected Delivery Route/Plan Labor Preferences- CB/BF classes: no labor support person: Matthew labor intervention preferences: pain management options preferred: epidural cut cord/dad catch: yes : yes PP control planned: Discussed discussed possible routes of delivery and associated risks: [] special requests: [] Plans Covid status: [] Flu vaccine: declines Tdap vaccine: [] Rhogam: NA LARC form signed: yes Problem list reviewed and updated with the most current plan of care details and appropriate orders placed. Relevant counseling for the gestational age provided. Continue routine care and follow up unless otherwise noted in visit notes/problem list details OB Flowsheet Initial Weight: 117 lb Date -?-?-?-?-?-?-?-?-?-?-?-?- EGA Weight BP Urine Prot -?-?-?-?-?-?-?-?-?-?-?-?- Glucose FHR FuHt Pres Dilation -?-?-?-?-?-?-?-?-?-?-?-?- Effaced St Visit Note 05/26/23 -?-?-?-?-?-?-?-?-?-?-?-?- 12w 4d 117 lb (+0 oz) 101/67 -?-?-?-?-?-?-?-?-?-?-?-?- 157 -?-?-?-?-?-?-?-?-?-?-?-?- LC CRL not cw LM P. EDUARDO changed to 12/04/2023. HC/AC/FL =12w4d. discussed and declines nipt. anatomy scan with [facility] due to insurance cost. 07/01/23 -?-?-?-?-?-?-?-?-?-?-?-?- 17w 5d 121 lb 8 oz (+4 lb 8 oz) 102/67 Negative -?-?-?-?-?-?-?-?-?-?-?-?- Negative -?-?-?-?-?-?-?-?-?-?-?-?- KW-no vb/crampin g. FHT with handheld US KW-no vb/cramping. FHT with handheld US. to call to schedule anatomy US 07/28/23 -?-?-?-?-?-?-?-?-?-?-?-?- 21w 4d 133 lb 8 oz (+16 lb 8 oz) 102/65 Negative -?-?-?-?-?-?-?-?-?-?-?-?- Negative 142 -?-?-?-?-?-?-?-?-?-?-?-?- LC- no vb/crampi ng. normal anatomy scan. no concerns. 08/27/23 -?-?-?-?-?-?-?-?-?-?-?--?- 25w 6d 138 lb 8 oz (+21 lb 8 oz) 100/62 Negative -?-?-?-?-?-?-?-?-?-?-?-?- Negative 140 -?-?-?-?-?-?-?-?-?-?-?-?- LC- no vb/ctx/lo f. good fm. 28 week labs ordered. 09/10/23 -?-?-?-?-?-?-?-?-?-?-?-?- 27w 6d 141 lb 8 oz (+24 lb 8 oz) 108/64 Negative -?-?-?-?-?-?-?-?-?-?-?-?- Negative 148 26 -?-?-?-?-?-?-?-?-?-?-?-?- MH-No VB, LOF. G ood FM. Larc. Reviewed start FE. Needs 3 hr GTT 09/24/23 -?-?-?-?-?-?-?-?-?-?-?-?- 29w 6d 147 lb 4 oz (+30 lb 4 oz) 93/61 Negative -?-?-?-?-?-?-?-?-?-?-?-?- Negative 150 -?-?-?-?-?-?-?-?-?--?-?-?- JV- no lof, vagi nal bleeding, or dec fm. she wants to think about tdap for next visit. JV- STILL DID NOT DO GTT. no lof, vaginal bleeding, or dec fm. she wants to think about tdap for next visit. 10/09/23 -?-?-?-?-?-?-?-?-?-?-?-?- 32w 0d 149 lb (+32 lb) 107/65 -?-?-?-?-?-?-?-?-?-?-?-?- 140 29 -?-?-?-?-?-?-?-?-?-?-?-?- SM- nl 3 hr gtt no vb lof good fm no regular ctx 10/24/23 -?-?-?-?-?-?-?-?-?-?-?-?- 34w 1d 151 lb (+34 lb) 118/68 Negative -?-?-?-?-?-?-?-?-?-?-?-?- Negative 145 31 -?-?-?-?-?-?-?-?-?-?-?-?- KW- no vb/lof/ct x. good fm. growth US reviewed. 30% and normal NE. discussed GBS next visit 11/07/23 -?-?-?-?-?-?-?-?-?-?-?-?- 36w 1d 155 lb (+38 lb) 104/70 Trace A -?-?-?-?-?-?-?-?-?-?-?-?- Negative 140 34 Cephalic 1 -?-?-?-?-?-?-?-?-?-?-?-?- 50 -3 LC- no vb/ ctx/lof. good fm. gbs obtained. no concerns. 11/14/23 -?-?-?-?-?-?-?-?-?-?-?-?- 37w 1d 157 lb 2 oz (+40 lb 2 oz) 118/72 Negative -?-?-?-?-?-?-?-?-?-?-?-?- Negative 138 35.5 Cephalic 1 -?-?-?-?-?-?-?-?-?-?-?-?- 50 -3 LC- no vb/ ctx/lof. good fm. GBS positive 11/21/23 -?-?-?-?-?-?-?-?-?-?-?-?- 38w 1d 158 lb (+41 lb) 109/69 Negative -?-?--?-?-?-?-?-?-?-?-?-?- Negative 145 34 Cephalic -?-?-?-?-?-?-?-?-?-?-?-?- SM- no vb lof go od fm no regular ctx 11/25/23 -?-?-?-?-?-?-?-?-?-?-?-?- 38w 5d 159 lb 2 oz (+42 lb 2 oz) 118/70 Negative -?-?-?-?-?-?-?-?-?-?-?-?- Negative 140 35 Cephalic 2 -?-?-?-?-?-?-?-?-?-?-?-?- 70 -2 KW- no vb/ lof/ctx. Reviewed US. decrease FM but still getting 10 movements in 2 hours. NST today. KW- no vb/lof/ctx. Reviewed US. decrease FM but still getting 10 movements in 2 hours. NST today-not reactive. to WP NST FHR Rate Baby A Baseline: 130 Variability:: Moderate Accelerations:: 15 x 15 Decelerations:: None NST Reactive:: Yes FHR Category:: Category I Uterine Activity:: irregular ROS Constitutional Constitutional: Reports systems reviewed and no addt'l complaints, except as documented Eyes Eyes: Denies change in vision ENT HEENT: Reports systems reviewed and no addt'l complaints, except as documented; Denies headache(s) Cardiovascular Cardiovascular: Reports systems reviewed and no addt'l complaints, except as documented; Denies chest pain or dyspnea Respiratory/Chest Respiratory/Chest: Reports systems reviewed and no addt'l complaints, except as documented Gastrointestinal Gastrointestinal: Reports systems reviewed and no addt'l complaints, except as documented; Denies abdominal pain Genitourinary Genitourinary: Reports systems reviewed and no addt'l complaints, except as documented, contractions Details: present (irregular) and movement Detail s: present; Denies dysuria or genital lesions Musculoskeletal Musculoskeletal: Reports systems reviewed and no addt'l complaints, except as documented Neurologic Neurologic: Reports systems reviewed and no addt'l complaints, except as documented Endocrine Endocrinology: Reports systems reviewed and no addt'l complaints, except as documented Vital Signs Vital Signs Vital Signs: 11/25/23 13:11 11/25/23 13:11 11/25/23 13:11 Temperature Temperature Source Pulse Rate 85 89 Respiratory Rate Blood Pressure 116/71 BP Systolic 116 BP Diastolic 71 Pulse Ox 11/25/23 13:11 11/25/23 13:12 11/25/23 13:12 Temperature Temperature Source Temporal Pulse Rate Respiratory Rate 19 H Blood Pressure BP Systolic BP Diastolic Pulse Ox 98 11/25/23 13:12 11/25/23 14:24 11/25/23 14:24 Temperature 98.1 F Temperature Source Pulse Rate 91 Respiratory Rate Blood Pressure 113/66 BP Systolic 113 BP Diastolic 66 Pulse Ox 11/25/23 14:23 11/25/23 14:23 11/25/23 14:23 Temperature 98.5 F Temperature Source Temporal Pulse Rate Respiratory Rate 18 Blood Pressure BP Systolic BP Diastolic Pulse Ox 11/25/23 16:22 11/25/23 16:22 11/25/23 16:24 Temperature Temperature Source Pulse Rate 77 75 Respiratory Rate Blood Pressure 118/61 BP Systolic 118 BP Diastolic 61 Pulse Ox 11/25/23 16:24 11/25/23 16:23 11/25/23 16:23 Temperature Temperature Source Temporal Pulse Rate Respiratory Rate 18 Blood Pressure BP Systolic BP Diastolic Pulse Ox 99 11/25/23 16:23 11/25/23 17:30 11/25/23 17:30 Temperature 98.7 F Temperature Source Temporal Pulse Rate Respiratory Rate Blood Pressure 122/61 H BP Systolic 122 BP Diastolic 61 Pulse Ox 11/25/23 17:30 11/25/23 17:30 11/25/23 17:30 Temperature 98.5 F Temperature Source Pulse Rate 86 Respiratory Rate 16 Blood Pressure BP Systolic BP Diastolic Pulse Ox 11/25/23 18:38 11/25/23 18:39 11/25/23 18:39 Temperature Temperature Source Temporal Pulse Rate 91 Respiratory Rate Blood Pressure 114/61 BP Systolic 114 BP Diastolic 61 Pulse Ox 11/25/23 18:38 11/25/23 18:38 11/25/23 19:17 Temperature 98.8 F Temperature Source Pulse Rate Respiratory Rate 19 H Blood Pressure 97/53 L BP Systolic 97 BP Diastolic 53 Pulse Ox 11/25/23 19:17 11/25/23 19:17 11/25/23 19:20 Temperature Temperature Source Pulse Rate 82 85 Respiratory Rate Blood Pressure BP Systolic BP Diastolic Pulse Ox 96 11/25/23 19:16 11/25/23 19:20 11/25/23 19:16 Temperature 99.1 F Temperature Source Pulse Rate Respiratory Rate 16 Blood Pressure BP Systolic BP Diastolic Pulse Ox 94 Weight Weight: 158 lb 11.725 oz Body Mass Index (BMI) 28.0 Physical Exam Const alert, oriented x3, no apparent distress and healthy appearing HEENT normocephalic and moist oral mucous membranes Head and Scalp: atraumatic Neck full ROM, no lymphadenopathy, supple and thyroid normal General: trachea midline Lymph Lymphatic: no lymphadenopathy noted Chest inspection of chest normal Resp normal respiratory effort Cardio regular rate GI normal to inspection, nondistended, normoactive bowel sounds, soft to palpation and non-tender Inspection: gravid external exam normal Manual OB Exam: estimated gestational size appropriate, presentation cephalic, dilated, effaced and station Extremity normal to inspection General Extremity: Negative for edema Skin no rashes or lesions noted Neuro no focal motor deficits and deep tendon reflexes 2+ bilaterally Motor Exam: strength 5/5 throughout and clonus absent Psych mental status grossly normal Labs Labs Labs: Blood Type A POSITIVE Antibody Screen NEGATIVE Hct 34.2 % (37-47) L Hgb 10.2 g/dL (12.0-15.0) L Obstetrics Ultrasound Syphilis Total Ab Non-reactive Rubella IgG Antibody Reactive (Nonreactive) Hep Bs Antigen Non-Reactive (Nonreactive) Hepatitis C Antibody Non-Reactive (Nonreactive) Chlamydia DNA (MAYRA) Negative (Negative) N.gonorrhoeae DNA (MAYRA) Negative (Negative) HIV 1&2 Antibody Non-Reactive (Nonreactive) Glucose 1 Hr 50 gm 138 mg/dL (70-140) Gest Glucose Tolerance MG/DL Assessment & Plan (1) : QUALIFIERS: Weeks of gestation: 38 weeks Qualified Code(s): Z3A.38 - 38 weeks gestation of COMMENT: declines nipt,carrier and ntd. reviewed anatomy. +placenta lakes. (2) History of depression: COMMENT: without medications/counseling (3) Supervision of high-risk : QUALIFIERS: Trimester: second trimester Qualified Code(s): O09.92 - Supervision of high risk , unspecified, second trimester COMMENT: [id number] Eduardo 12/04/2021 girl PC: Angie. partner: matthew (4) Placental abnormality: QUALIFIERS: Trimester: second trimester Qualified Code(s): O43.102 - Malformation of placenta, unspecified, second trimester COMMENT: placenta lakes seen (5) Abnormal glucose affecting : COMMENT: 3HR-passed (6) Anemia during : COMMENT: add FE (7) Uterine size-date discrepancy, third trimester: COMMENT: noted shortened long bone on US. consider IOL at 39 weeks. growth US (30%) normal ne at 34 weeks (8) Positive GBS test: COMMENT: treatment in labor. PCN (9) Decreased movements in third trimester: PLAN: Plan Patient presents IOL, plan management for with pitocin/AROM. Pain management: Plans epidural. GBS plan penicillin Management of any complications: None I have reviewed the [facility] and made any clinically relevant updates.
[2023-11-25] MEDS: fentaNYL-bupivacaine (epidural) 100 ML BAG EPIDURAL (20:56)
[2023-11-25] MEDS: Lactated Ringers 1,000 ML 200 ML IV (22:44)
[2023-11-26] VITALS (51 sets, daily range): BP systolic 99–151; BP diastolic 55–77; PULSE 72–97; RESP 16–18; TEMP 36.4–36.9; O2SAT 87–100
[2023-11-26] MEDS: Penicillin G 3,000,000 Units 50 ML 100 UNITS IV (00:16)
--- NOTE | 2023-11-26 01:33 | EX.PCM.OBRPT ---
Assessment & Plan (1) History of depression: COMMENT: without medications/counseling (2) : QUALIFIERS: Weeks of gestation: 38 weeks Qualified Code(s): Z3A.38 - 38 weeks gestation of COMMENT: declines nipt,carrier and ntd. reviewed anatomy. +placenta lakes. (3) Supervision of high-risk : QUALIFIERS: Trimester: second trimester Qualified Code(s): O09.92 - Supervision of high risk , unspecified, second trimester COMMENT: [id number] Eduardo 12/04/2023 girl PC: Angie. partner: chaitanya (4) Placental abnormality: QUALIFIERS: Trimester: second trimester Qualified Code(s): O43.102 - Malformation of placenta, unspecified, second trimester COMMENT: placenta lakes seen (5) Abnormal glucose affecting : COMMENT: 3HR-passed (6) Anemia during : COMMENT: add FE (7) Positive GBS test: COMMENT: treatment in labor. PCN (8) Uterine size-date discrepancy, third trimester: COMMENT: noted shortened long bone on US. consider IOL at 39 weeks. growth US (30%) normal noel at 34 weeks (9) Decreased movements in third trimester: COMMENT: SM induction of labor decreased movement girl Leatha (10) Vaginal delivery: Maternal Data Information EDUARDO Calculator Estimated Delivery Date Method Current WG Current Estimate 12/04/23 Ultrasound #1 38w 6d Other Estimates 01/03/24 LMP (Uncertain) 34w 4d Vaginal Delivery Operative Information Date of Procedure: 11/26/23 Pre-Operative Diagnosis: see a/p diagnoses Post-Operative Diagnosis: same Surgery / Procedure Performed: Spontaneous Vaginal Delivery Type of Anesthesia: Epidural Special Medications: none Estimated Blood Loss: 300 Fluids Replaced: crystalloid Findings Description of Procedure: Patient felt pressure and nurse noted there was a bradycardia so the nurse checked her and the head was already spontaneously delivered on the perineum therefore Was called immediately to the bedside and the infant was just delivering onto the abdomen with arrival, Had been on the unit during delivery. Delayed cord clamping was employed for approximately 60 seconds. Cord was clamped and cut and gentle traction was applied to the cord and the placenta delivered spontaneously immediately following it was noted to be intact with three-vessel cord. The perineum and vagina were inspected and Noted to have no laceration. EBL was 300 cc. Patient and infant tolerated delivery well. Amniotic Fluid Description: Clear Placental Delivery Description: Spontaneous Placenta Disposition: [facility] Cord Vessel Description: 3 Vessels Cord Entanglement: None Delayed Cord Clamping: Yes Post Vaginal Delivery Medications Given After Delivery: IV Pitocin Episiotomy Description: None Complication Complications: None Procedures Urinary/Genital [id number]: [id number] Vaginal Delivery [facility]
--- NOTE | 2023-11-26 01:36 | DCINST_ITS ---
Discharge Instructions Diet Discharge Diet: No restrictions Activity Discharge Activity: Return to Normal Activity, May Not Drive (while taking narcotic pain medications.) and May Shower May resume sexual activity in: 4-6 weeks Dressing / Incision Call your doctor if your incision/area has: Continuous Slow Oozing, Sudden Increased Bleeding, Increased Pain/ Swelling, Increased Redness and Foul Smelling Discharge Follow Up Care Please Follow Up With: Peggy Jauregui MD When: Call [phone] to make an appointment with your doctor in 6 weeks. If you had elevated blood pressure or 4th degree laceration, you will need to be seen in 2 weeks. Test Results: Test results from this visit will be discussed in further detail at your follow- up appointment, if applicable. Discharge Plan Admission Admit Date/Time: 11/25/23 12:40 Attending Provider: Peggy Jauregui Primary Care Provider: Care Physician,Alyssa Primary Discharge Orders/Prescriptions Prescriptions: No Action PNV-DHA 27 mg iron-1 mg -300 mg capsule 1 cap PO DAILY ferrous sulfate 325 mg (65 mg iron) tablet 325 mg PO DAILY ibuprofen [Advil] 200 mg tablet 400 mg PO PRN Referrals / Follow Up: Care Physician,No Primary [Primary Care Provider] -
[2023-11-26] MEDS: Oxytocin 15 Units/NS 250ml 15 UNITS/250 ML IV.SOLN 83 UNITS IV (01:50)
[2023-11-26] MEDS: Naproxen 500 MG Tablet PO (09:48)
[2023-11-27] MEDS: Acetaminophen 500 MG Tablet 1000 MG PO ×2 (01:00→07:52)
[2023-11-27 01:40] VITALS: BP 110/74; PULSE 72; RESP 17; TEMP 36.5; O2SAT 100
--- NOTE | 2023-11-27 07:57 | PCM.PN.OB ---
Subjective Subjective Patient doing well from delivery but does complain of sore throat this am. No fever. Tolerating PO. Ambulating and voiding without difficulty. Feeding well. Denies chest pain, shortness of breath, calf pain/swelling, fevers, chills, lightheadedness. Objective Data Objective Data Vital Signs: Vital Signs Temp Pulse Resp BP Pulse Ox O2 Del Method 97.7 F L 72 17 110/74 100 Room Air 11/27/23 01:40 11/27/23 01:40 11/27/23 01:40 11/27/23 01:40 11/27/23 01:40 11/27/23 01:40 Oxygen Delivery Method Room Air Weight: 158 lb 11.725 oz Body Mass Index (BMI) 28.0 Intake & Output: Intake and Output for Last 24 Hours 11/25/23 11/26/23 11/27/23 23:59 23:59 23:59 Intake Total 1855.20 / 1855.20 1027.46 / 1027.46 Output Total 950 / 950 1300 / 1300 Balance 905.20 / 905.20 -272.54 / -272.54 Lab / Micro Data 11/25/23 14:15 Physical Exam Const alert and oriented x3 HEENT normocephalic Eyes PERRL Neck full ROM Resp normal respiratory effort GI soft to palpation GI Narrative: FF below U Assessment & Plan (1) Vaginal delivery: COMMENT: girl SM precip. Leatha (2) History of depression: COMMENT: without medications/counseling/stable (3) Sore throat: PLAN: Plan s/p PPD # 1 1. routine post delivery care 2. breast feeding- support given 3. rh positive 4. rubella immune 5. OTC management for throat, warm liguids etc 6. home today
[2023-11-27 08:12] VITALS: BP 103/64; PULSE 68; RESP 16; TEMP 36.7; O2SAT 98
[2023-11-27 11:40] VITALS: BP 103/64; PULSE 68; RESP 16; TEMP 36.6; O2SAT 98
--- NOTE | 2023-12-01 10:44 | NURSING ---
F/up phone call performed. Pt denies issues with bleeding or healing. going okay, is tongue tied. Pt. feels she may have a clogged duct, so breast gymnastics, positioning, and use of ice therapy recommendations shared with pt. If pt. does not see improvement or resolved clogged duct in 1-2 days, encouraged to call back and speak with team. Pt. verbalized understanding.
== END 2023-11-27 13:10 | disposition home or self-care (01) | DRG 807 ==
PROVIDERS: Admitting Provider Obstetrics & Gynecology; Visit Provider Obstetrics & Gynecology
DX: O76 Abnormality in fetal heart rate and rhythm complicating labor and delivery (principal); Z37.0 Single live birth; B95.1 Streptococcus, group B, as the cause of diseases classified elsewhere; J02.9 Acute pharyngitis, unspecified; O43.103 Malformation of placenta, unspecified, third trimester; O99.824 Streptococcus B carrier state complicating childbirth; O26.843 Uterine size-date discrepancy, third trimester; Z87.59 Personal history of other complications of pregnancy, childbirth and the puerperium; Z86.59 Personal history of other mental and behavioral disorders; Z3A.38 38 weeks gestation of pregnancy; O99.53 Diseases of the respiratory system complicating the puerperium; O99.02 Anemia complicating childbirth
CPT/HCPCS: 59025; 59050; 85025; 86780; 86850; 86900; 86901; 99221; J7120; G0378

== ENCOUNTER 2023-12-04 10:15 | Emergency (ER) | payer OTHER, MEDICAID, SELFPAY ==
[2023-12-04 10:15] VITALS: BP 102/55; PULSE 70; RESP 14; TEMP 36.6; O2SAT 98
[2023-12-04 10:29] VITALS: BMI 24.2
--- NOTE | 2023-12-04 10:30 | CT_ITS ---
STUDY: CT ABDOMEN AND PELVIS WITHOUT CONTRAST REASON FOR EXAM: Female, 28 years old. Right flank pain, recent vaginal delivery RADIATION DOSAGE (If Supplied By Facility): CTDIvol = ( 6.38 ) mGy, DLP = ( 298.56 ) mGycm TECHNIQUE: Transaxial images were obtained from the dome of the diaphragm to the symphysis pubis without oral contrast, and without intravenous contrast. Sagittal and coronal images were reconstructed. Individualized dose optimization techniques were used for this CT. COMPARISON: None. FINDINGS: Minimal degree of left basilar atelectasis. The visualized portions of the heart are within normal limits. Normal liver. Normal gallbladder and extrahepatic biliary system. Normal spleen. Normal pancreas. Normal bilateral adrenal glands. Mild right hydronephrosis. Normal left kidney. Normal visualized stomach. Normal small intestine. Normal colon. The appendix is visualized and appears normal. Normal abdominal aorta. Normal inferior vena cava. Normal retroperitoneum. A 2 mm calculus is seen at the base of the bladder most likely representing a recently passed right ureteral calculus. Enlargement of the uterus in keeping with recent vaginal delivery. Prominence of the endometrium. Normal abdominal wall. Normal osseous structures. CT/Abdomen/Pelvis without Cont IMPRESSION: Mild right hydronephrosis. A 2 mm calculus is noted the base of the bladder most likely representing a recently passed right ureteral calculus. Enlarged uterus and thickened endometrium in keeping with recent vaginal delivery. Electronically Signed: Maury Carlson MD at 12:00 EDT ,
--- NOTE | 2023-12-04 10:31 | EDS_ITS ---
HPI History of Present Illness Chief Complaint: Back Informant: patient Onset/Context/Timing Onset: Today Narrative Narrative: Patient states she woke this morning with pain in the right mid back. She has a history of chronic back pain but states this feels completely different. She had a vaginal delivery last week and has been doing well. She states when she got up at 1 AM to feed the baby she noted a slight pinching in the left lower back, but when she woke this morning had more significant pain in the right paraspinal upper lumbar region. No urinary symptoms. No history of kidney stones. Pain does not radiate down her legs. [facility] Medical History 38 weeks gestation of Alcohol use Anemia Anemia affecting Back pain Dizziness False labor Migraine headache Non-smoker Sore throat Spontaneous rupture of membranes Vaginal delivery Wears glasses Home Medications multivitamin no.47-iron fum 27 mg-folate no.1 1 mg-dha 300 mg capsule (PNV-DHA) 1 cap PO DAILY 05/26/23 [History Last Taken 11/24/23 20:00 1 cap] ferrous sulfate 325 mg (65 mg iron) tablet 325 mg PO DAILY 11/07/23 [History Last Taken 11/24/23 20:00 325 mg] ibuprofen 200 mg tablet (Advil) 400 mg PO PRN lower back pain 11/25/23 [History Last Taken 11/23/23 20:00 400 mg] oxycodone 5 mg tablet 5 mg PO Q8H PRN pain 3 days #10 tabs 12/04/23 [Rx Last Taken Unknown] Allergy/AdvReac Type Severity Reaction Status Date / Time No Known Allergies Allergy Verified 12/04/23 10:16 Family History Other Hx of wisdom tooth extraction Surgical History H/O dilation and curettage Hx of myringotomy Hx of wisdom tooth extraction Social History adopted: No household members: family housing: house number of children: 1 current occupational status: employed 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[employer] current occupational exposures/hazards: Yes pets and animals: Yes (not managing litter box) pets and animals: cat(s), dog(s), bird(s), snake(s) and farm animals history of recent travel: No sexually active: Yes Smoking Status: Never smoker alcohol intake: former details: not while substance use type: does not use seatbelt use: always do you feel safe at home: Yes additional social history: spouse is fruit worker, daughter Angie COOPER ROS ED Constitutional Constitutional ED: Denies chills or fever(s) Eyes Eyes: Denies discharge from eye(s) ENT ENT ED: Denies discharge from eye(s), rhinorrhea or sore throat Cardiovascular Cardiovascular: Denies chest pain or palpitations Respiratory/Chest Respiratory/Chest: Denies cough or dyspnea Gastrointestinal Gastrointestinal: Denies abdominal pain, nausea or vomiting Genitourinary Genitourinary ED: Reports other Details: Vaginal bleeding postdelivery is improving. No atypical discharge. ; Denies dysuria Musculoskeletal Musculoskeletal: Reports back pain; Denies extremity pain or neck pain Integumentary Denies Abrasions or rash Neurologic Neurologic: Denies headache(s) or weakness Psychiatric Psychiatric: Denies anxiety or depression Allergic/Immunologic Allergic/Immunologic ED: Denies lip swelling or urticaria EXAM Physical Exam Const Vital Signs: 12/04/23 10:15 Temperature 98 F Temperature Source Temporal Pulse Rate 70 Respiratory Rate 14 Blood Pressure 102/55 L Blood Pressure Mean 70 Pulse Ox 98 Oxygen Delivery Method Room Air Positive well nourished and well developed General Appearance ED: well developed HEENT Reports moist mucous membranes Eyes EOMs intact bilaterally Resp normal respiratory effort and clear to auscultation bilaterally Cardio regular rate and regular rhythm GI soft to palpation and non-tender Back/Spine Back/Spine Narrative: Mild tenderness in the right CVA region. Extremity Extremity Narrative: Strong distal pulses with normal sensation throughout. Neuro oriented x3 and no sensory deficits noted Motor Exam: strength 5/5 throughout Skin no rashes or lesions noted MDM MDM MDM Narrative Medical decision making narrative: IV line initiated. Patient given a small dose of fentanyl and Toradol along with Zofran. IV fluids given. Labwork obtained to evaluate for leukocytosis, anemia, and electrolyte derangement. Given that her pain is more in the right CVA region with a recent delivery we will obtain a CT of the abdomen pelvis to ensure no retroperitoneal hematoma, kidney stone, or other source of pain. History & Record Review Discussion w/independent historian: Patient Lab Data Attestation: I reviewed the patient's lab results. Labs: Laboratory Results - last 24 hr 12/04/23 12/04/23 10:45 11:25 WBC 8.4 RBC 5.20 Hgb 12.1 Hct 41.0 MCV 78.8 L MCH 23.3 L MCHC 29.5 L RDW Std Deviation 52.9 H RDW Coeff of Sumi 18.7 H Plt Count 304 MPV 10.6 Immature Gran % (Auto) 0.500 Neut % (Auto) 75.4 H Lymph % (Auto) 18.3 L [place] % (Auto) 3.8 Eos % (Auto) 1.5 Baso % (Auto) 0.5 Absolute Neuts (auto) 6.4 Absolute Lymphs (auto) 1.54 Nucleated RBC % 0 Sodium 142 Potassium 4.3 Chloride 113 H Carbon Dioxide 23.0 Anion Gap 6 BUN 12 Creatinine 0.70 Estim Creat Clear Calc 100.75 Est GFR (MDRD) Af Amer 130 Est GFR (MDRD) Non-Af 107 BUN/Creatinine Ratio 17.1 Glucose 76 Calcium 8.8 Urine Color Yellow Urine Clarity Clear Urine pH 6.5 Ur Specific [place] 1.015 Urine Protein 15 H Urine Glucose (UA) Normal Urine Ketones Negative Urine Occult Blood 250 H Urine Nitrite Negative Urine Bilirubin Negative Urine Urobilinogen Normal Ur Leukocyte Esterase 25 H Urine RBC 5-10 SEEN Urine WBC 0-5 SEEN Ur Squamous Epith Cells 0-5 SEEN Urine Bacteria 0 SEEN Urine Mucus 0 SEEN Radiography Diagnostic Testing: Clinical Impression(s) from Imaging Studies Abdomen/Pelvis CT 12/04/23 10:30 IMPRESSION: Mild right hydronephrosis. A 2 mm calculus is noted the base of the bladder most likely representing a recently passed right ureteral calculus. Enlarged uterus and thickened endometrium in keeping with recent vaginal delivery. Electronically Signed: Maury Carlson MD at 12:00 EDT , Treatment and Re-Evaluation Narrative: CBC reveals a white count of 8.4 with a hemoglobin of 12.1. 75% neutrophils noted. Chemistry studies reveal normal renal function. Glucose is 76. Urinalysis does reveal 5-10 red cells with 0-5 white cells and no bacteria. CT scan of the flank reveals mild right hydronephrosis with a 2 mm calculus at the base of the bladder likely representing a recently passed right ureteral calculus. On repeat examination patient is improved. She will continue Tylenol and ibuprofen at home. I will also write her a short course of oxycodone that she can use only for breakthrough pain. She is comfortable with the plan. Return instructions given. Discharge Plan Triage Chief Complaint: Back ED Provider: Dayami Urbina Dx/Rx/DC Orders Clinical Impression: Kidney stone Instructions: ED Kidney Stone, Passed Prescriptions: New oxycodone 5 mg tablet 5 mg PO Q8H PRN (Reason: pain) 3 Days Qty: 10 0RF No Action PNV-DHA 27 mg iron-1 mg -300 mg capsule 1 cap PO DAILY ferrous sulfate 325 mg (65 mg iron) tablet 325 mg PO DAILY ibuprofen [Advil] 200 mg tablet 400 mg PO PRN Primary Care Provider: Care Physician,No Primary Referrals: Jyoti Bates MD [Med Staff - Active Staff] - As Needed Care Physician,No Primary [Primary Care Provider] - Disposition Disposition: Home, Self Care
[2023-12-04] MEDS: 0.9% Normal Saline (1000mL) 1,000 ML 150 ML IV (10:39)
[2023-12-04] MEDS: Ondansetron 4 MG/2 ML Vial IV (10:45)
[2023-12-04] MEDS: Ketorolac 15 MG/ML Vial IV (10:48)
[2023-12-04] MEDS: fentaNYL 100 MCG/2 ML Ampul 12.5 MCG IV (10:55)
--- NOTE | 2023-12-04 11:07 | ED.RN ---
THIS RN CONTACTED NURSE IN OB FOR PT REGARDING MEDICATIONS GIVEN. PT COMFORTABLE. WILL TALK TO NURSE IF MORE MEDS ARE GIVEN
[2023-12-04 11:09] LABS: Absolute Lymphocyte Count 1.54 X10^3/uL (0.83-4.51); Absolute Neutrophil Count 6.4 X10^3/uL (2.0-7.7); Basophil# 0.04 X10^3/uL; Basophil% 0.5 % (0-1); Eosinophil# 0.13 X10^3/uL; Eosinophils% 1.5 % (0-5); Hemoglobin 12.1 g/dL (12.0-15.0); Lymphocyte # 1.54 X10^3/ul (0.83-4.51); Lymphocyte % 18.3 % (19-41); Mean Corp Hgb Conc 29.5 g/dL (32-36); Mean Corpuscular Hgb 23.3 pg (27.0-32.0); Mean Corpuscular Volume 78.8 fL (81-99); Mean Platelet Vol. 10.6 fl (6.2-12.0); Monocyte# 0.32 X10^3/uL; Monocyte% 3.8 % (0-10); NRBC Flagged by Analyzer 0 % (0-5); Neutrophil # 6.36 X10^3/uL (2.7-7.7); Neutrophil % 75.4 % (47-70); Platelet Count 304 K/mm3 (150-450); RBC Distribution Width CV 18.7 % (11.6-14.6); RBC Distribution Width SD 52.9 fl (35.1-43.9); White Blood Count 8.4 K/mm3 (4.4-11.0)
[2023-12-04 11:21] LABS: Anion Gap 6 (5-15); BUN 12 mg/dL (7-18); BUN/Creat Ratio 17.1 RATIO (10-20); Calcium,Total 8.8 mg/dL (8.5-10.1); Chloride 113 mmol/L (98-107); EST Glomerular Filtration Rate 107 mL/min (>60); Est Glom Filt Rate - Afr Amer 130 mL/min (>60); Estimated Creatinine Clearance 100.75 ml/min; Glucose 76 mg/dL (74-106); Potassium 4.3 mmol/L (3.5-5.1); Sodium Level 142 mmol/L (136-145)
[2023-12-04 11:34] LABS: Bacteria 0 SEEN /hpf (None Seen); Mucous, Urine 0 SEEN /hpf (<or=2+)
[2023-12-04 11:43] LABS: Color, Urine Yellow (Yellow); Glucose, Dipstick Normal (Normal); Ketone-Dipstick Negative (Negative); Leukocyte Esterase-Dipstick 25 /ul (Negative); Nitrite-Dipstick Negative (Negative); Occult Blood-Urine 250 /ul (Negative); Protein-Dipstick 15 mg/dl (Negative); Specific Gravity, Urine 1.015 (1.002-1.030); Urine Bilirubin Dipstick Negative (Negative); Urine Clarity Clear (Clear); Urine Urobilinogen Normal (Normal); Urine pH 6.5 (5.0 - 8.0)
[2023-12-04 12:14] LABS: Red Blood Cells-Urine 5-10 SEEN /hpf (0-5); White Blood Cells 0-5 SEEN /hpf (0-5)
[2023-12-04 12:15] LABS: Squamous Epithelial Cells - UA 0-5 SEEN /hpf (5-10)
[2023-12-04 12:41] VITALS: BP 109/67; PULSE 64; RESP 14; TEMP 36.6; O2SAT 99
== END 2023-12-04 12:41 | disposition home or self-care (01) ==
PROVIDERS: Emergency Provider Emergency Medicine; Visit Provider Emergency Medicine
DX: N13.2 Hydronephrosis with renal and ureteral calculous obstruction (principal)
CPT/HCPCS: 74176; 80048; 81001; 85025; 96361; 96374; 96375; 99284; J7030; J2405

== ENCOUNTER 2025-08-17 21:16 | Emergency (ER) | payer SELFPAY ==
[2025-08-17 21:17] VITALS: BP 110/77; PULSE 71; RESP 17; TEMP 36.8; O2SAT 97; BMI 21.8
--- NOTE | 2025-08-17 22:40 | EX.ED.DYSGE1 ---
HPI History of Present Illness Chief Complaint: Sore Throat Informant: patient Narrative Narrative: Patient is a 29-year-old female who states she has had 5 to 7 days of nasal congestion and sore throat. She states her 2 daughters are sick with similar symptoms but that they all became sick at roughly the same time. She states her symptoms have been mild for the last 5 days but in the last 1 to 2 days she has noticed increased sore throat and left ear pain. She states she is concerned she may have an ear infection or strep throat and with this presents for evaluation. PFSH PFS Medical History Sore throat Anemia Vaginal delivery Anemia affecting Spontaneous rupture of membranes False labor 38 weeks gestation of Wears glasses Alcohol use Back pain Migraine headache Dizziness Non-smoker Home Medications ?Medication ?Instructions ?Recorded ?Last Taken ?Type ferrous sulfate 325 mg (65 mg 325 mg PO DAILY 11/07/23 11/24/23 20:00 History iron) tablet 325 mg ibuprofen 200 mg tablet (Advil) 400 mg PO PRN lower back pain 11/25/23 11/23/23 20:00 History 400 mg fluoxetine 20 mg capsule (Prozac) 20 mg PO DAILY #30 caps 02/10/24 Unknown Rx amoxicillin 875 mg-potassium 1 tab PO BID 7 days #14 tabs 08/17/25 Unknown Rx clavulanate 125 mg tablet azelastine 137 mcg (0.1 %) nasal 2 spray intranasal BID #30 mL 08/17/25 Unknown Rx spray prednisone 20 mg tablet 40 mg (2 x 20 mg) PO DAILY 5 days 08/17/25 Unknown Rx #10 tabs Allergy/AdvReac Type Severity Reaction Status Date / Time No Known Allergies Allergy Verified 08/17/25 21:19 Family History Other Hx of wisdom tooth extraction Surgical History H/O dilation and curettage Hx of wisdom tooth extraction Hx of myringotomy Social History adopted: No household members: family housing: house number of children: 1 current occupational status: employed 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[employer] current occupational exposures/hazards: Yes pets and animals: Yes (not managing litter box) pets and animals: cat(s), dog(s), bird(s), snake(s) and farm animals history of recent travel: No sexually active: Yes Smoking Status: Never smoker alcohol intake: former details: not while substance use type: does not use seatbelt use: always do you feel safe at home: Yes additional social history: spouse is bridge gang worker, daughter Angie COOPER ROS ED Constitutional Constitutional ED: Denies chills or fever(s) ENT ENT ED: Reports ear pain left, rhinorrhea and sore throat Cardiovascular Cardiovascular: Denies chest pain Respiratory/Chest Respiratory/Chest: Reports cough; Denies dyspnea Gastrointestinal Gastrointestinal: Denies abdominal pain, diarrhea, nausea or vomiting Genitourinary Genitourinary ED: Reports other Details: Patient denies any concern for Musculoskeletal Musculoskeletal: Denies myalgias Integumentary Denies rash Neurologic Neurologic: Denies headache(s) Allergic/Immunologic Allergic/Immunologic ED: Denies mouth swelling or tongue swelling EXAM Physical Exam Const Vital Signs: 08/17/25 21:17 Temperature 98.2 F Temperature Source Temporal Pulse Rate 71 Respiratory Rate 17 Blood Pressure 110/77 Blood Pressure Mean 88 Pulse Ox 97 Oxygen Delivery Method Room Air Positive well nourished and well developed General Appearance ED: well developed; Negative for pallor HEENT HEENT Narrative: Normocephalic atraumatic Nasal mucosa is hyperemic and boggy with enlarged inferior nasal turbinates No significant pain on palpation over top the maxillary frontal or ethmoid sinuses Bilateral canals are normal. Right TM is normal. Left TM is retracted consistent with eustachian tube dysfunction but no secondary findings to suggest otitis media No tongue or lip swelling no oral lesions no airway edema or compromise Cobblestoning is noted in the posterior pharynx. No hard palate petechiae no trismus no change in voice or difficulty with secretions Eyes PERRL and EOMs intact bilaterally Neck supple Neck Narrative: No nuchal rigidity or meningeal signs Positive anterior cervical lymphadenopathy is noted Resp normal respiratory effort and clear to auscultation bilaterally Cardio regular rate and regular rhythm Extremity normal to inspection Neuro oriented x3, CN's II-XII intact bilaterally and no sensory deficits noted Sensorium / Orientation: alert Motor Exam: strength 5/5 throughout Psych mental status grossly normal Skin no rashes or lesions noted and no wounds General Skin Exam: Negative for jaundice or pallor MDM MDM MDM Narrative Medical decision making narrative: Patient arrived to the ER with stable vitals. She reported 5 to 7 days of congestion sore throat and ear pain. Differential diagnosis is for viral infection such as COVID versus influenza versus RSV. Patient also could have viral versus bacterial pharyngitis or otitis media. By physical exam she has eustachian tube dysfunction on the left but no signs of otitis externa or otitis media or mastoiditis. By physical exam the posterior pharynx displays sinus drainage but no findings for bacterial pharyngitis/strep throat or peritonsillar abscess. We discussed obtaining a strep and/or viral swab but as vitals are stable and she does not respiratory distress a viral swab would not change treatment options so she does not want this performed. We also discussed obtaining a strep swab but as her physical exam does not suggest this and her symptoms are most likely due to drainage and congestion from a viral source she states she will simply take symptomatic treatment options at this time. Therefore as the patient does not have overt findings for systemic infection peritonsillar abscess or is in respiratory distress there is no need for further intervention and she is otherwise safe for discharge History & Record Review Discussion w/independent historian: Patient Discharge Plan Triage Chief Complaint: Sore Throat ED Provider: Leoncio Mello Dx/Rx/DC Orders Clinical Impression: Otalgia, Pharyngitis, Viral syndrome Instructions: ED Earache Without Infection (Adult), ED Pharyngitis, Viral, ED Viral Syndrome (Adult) Prescriptions: New azelastine 137 mcg (0.1 %) spray,non-aerosol 2 spray intranasal BID Qty: 30 0RF Rx Instructions: administer into each nostril prednisone 20 mg tablet 40 mg PO DAILY 5 Days Qty: 10 0RF amoxicillin-pot clavulanate 875-125 mg tablet 1 tab PO BID 7 Days Qty: 14 0RF No Action ferrous sulfate 325 mg (65 mg iron) tablet 325 mg PO DAILY fluoxetine [Prozac] 20 mg capsule 20 mg PO DAILY Qty: 30 12RF ibuprofen [Advil] 200 mg tablet 400 mg PO PRN Primary Care Provider: Care Physician,No Primary Referrals: Eduardo Lima MD [Med Staff - Active Staff, Family Practice] Care Physician,No Primary [Primary Care Provider, Medical] Activity Restrictions/Additional Instructions: Your symptoms are most consistent with a viral upper respiratory tract infection. This will last on average 18 to 21 days. Take the nasal spray and steroid as directed to help reduce congestion and drainage which should help resolve your ear pain/pressure and sore throat. However if symptoms are not resolving/improving with the prescribed medication then fill the antibiotic that was printed for you in the ER and take this to cover for potential infectious process. Return to the ER should you have any further concerns Print Language: Senegalese Disposition Disposition: Home, Self Care Discharge Date/Time: 08/17/25 22:56
--- OUTSIDE RECORDS SUMMARY | 2025-08-17 22:54 | XMS RPT_ITS | CCD ---
Author Organization [facility] Care Team Providers Care Furrier Shop Supervisor Name Role Phone SLOAN HER Unavailable Unavailable Marge PARTY PLAN SALES UNIT SALES LEADER.Letty ALDRICH Primary Care Provider LETTY BIRD Primary Care Unavailable LETTY BIRD Referring Unavailable LETTY BIRD Primary Care Unavailable LETTY BIRD Attending Unavailable CAMDEN Johnson Attending Provider [phone] CAMDEN Jasmine Attending Provider [phone] Care Physician, No Primary Primary Care Provider Unavailable Care Physician, No Primary Referring Provider Un available Lesli COMMISSARY WORKER, COMMISSARY WORKER-C Marilu Attending Provider [phone] CAMDEN Johnson Attending Provider Dr. Dayami De Attending Provider [phone] Dr. Peggy Jauregui Attending Provider [phone] Care Physician, No Primary Primary Care Provider Unavailable Care Physician, No Primary Referring Provider Un available CAMDEN Johnson Attending Provider [phone] Lesli COMMISSARY WORKER, RAISSA-C Marilu Attending Provider [phone] Dr. Dayami De Attending Provider [phone] Dr. Peggy Jauregui Attending Provider [phone] CAMDEN Jasmine Attending Provider [phone] CAMDEN Jasmine Referring Provider [phone] CAMDEN Jasmine Other Provider [phone] Care Physician, No Primary Primary Care Provider Unavailable Care Physician, No Primary Referring Provider Un available CAMDEN Johnson Attending Provider [phone] Dr. Peggy Jauregui Admit Provider [phone] Dr. Peggy Jauregui Other Provider [phone] Care Physician, No Primary Referring Unava ilable Care Physician, No Primary Primary Care Unava ilable Peggy Jauregui Attending Unavailable Care Physician, No Primary Primary Care Unava ilable Care Physician, No Primary Referring Unava ilable Lesli COMMISSARY WORKER, Marilu Attending Unavailable Care Physician, No Primary Primary Care Unava ilable Care Physician, No Primary Referring Unava ilable Dayami De Attending Unavailabl e Care Physician, No Primary Primary Care Unava ilable Care Physician, No Primary Referring Unava ilable Angie Jasmine Attending Unavailable Care Physician, No Primary Primary Care Unava ilable Emily Johnson Attending Unavailable Care Physician, No Primary Referring Unava ilable Peggy Jauregui Attending Unavailable Care Physician, No Primary Primary Care Unava ilable Peggy Jauregui Consulting Unavailable Peggy Jauregui Admitting Unavailable Care Physician, No Primary Referring Unava ilable Emily Johnson Attending Unavailable Care Physician, No Primary Primary Care Unava ilable Angie Jasmine Attending Unavailable Care Physician, No Primary Referring Unava ilable Care Physician, No Primary Primary Care Unava ilable Emily Johnson Referring Unavailable Emily Johnson Attending Unavailable Care Physician, No Primary Primary Care Unava ilable Care Physician, No Primary Primary Care Unava ilable Lesli COMMISSARY WORKER, Marilu Attending Unavailable [place] COMMISSARY WORKER, Marilu Referring Unavailable Dayami De Consulting Unavailabl e Peggy Jauregui Attending Unavailable Care Physician, No Primary Primary Care Unava ilable Peggy Jauregui Referring Unavailable Emily Johnson Attending Unavailable Emily Johnson Referring Unavailable Dayami [place] Attending Unavailable Care Physician, No Primary Primary Care Unava ilable Peggy Jauregui Attending Unavailable Care Physician, No Primary Referring Unava ilable Care Physician, No Primary Primary Care Unava ilable Lesli COMMISSARY WORKER, Marilu Attending Unavailable Angie aJsmine Attending Unavailable Care Physician, No Primary Referring Unava ilable Care Physician, No Primary Primary Care Unava ilable Care Physician, No Primary Referring Unava ilable [place] COMMISSARY WORKER, Marilu Attending Unavailable Care Physician, No Primary Primary Care Unava ilable [place] COMMISSARY WORKER, Marilu Attending Unavailable Care Physician, No Primary Primary Care Unava ilable Care Physician, No Primary Referring Unava ilable Emily Johnson Attending Unavailable Johnson, Emily Referring Unavailable Alex, Emily Attending Unavailable Care Physician, No Primary Primary Care Unava ilable Alex, Emily Attending Unavailable Care Physician, No Primary Primary Care Unava ilable Care Physician, No Primary Referring Unava ilable Peggy Jauregui Attending Unavailable Care Physician, No Primary Primary Care Unava ilable Care Physician, No Primary Referring Unava ilable Care Physician, No Primary Primary Care Unava ilable Care Physician, No Primary Referring Unava ilable Angie Jasmine Attending Unavailable Care Physician, No Primary Primary Care Unava ilable Angie Jasmien Consulting Unavailable Kenroy, Angie Referring Unavailable Kenroy, Angie Attending Unavailable Care Physician, No Primary Referring Unava ilable Emily Johnson Attending Unavailable Care Physician, No Primary Primary Care Unava ilable Kenroy, Angie Referring Unavailable Kenroy, Angie Attending Unavailable Care Physician, No Primary Primary Care Unava ilable Care Physician, No Primary Primary Care Unava ilable Peggy Jauregui Admitting Unavailable Peggy Jauregui Attending Unavailable Care Physician, No Primary Primary Care Unava ilable [place] COMMISSARY WORKER, Marilu Attending Unavailable [place] COMMISSARY WORKER, Marilu Referring Unavailable Care Physician, No Primary Referring Unava ilable Care Physician, No Primary Primary Care Unava ilable Angie Jasmine Attending Unavailable Care Physician, No Primary Referring Unava ilable Emily Johnson Attending Unavailable Care Physician, No Primary Primary Care Unava ilable Medications Current Medications Medication Drug Class(es) Dates Sig (Normalized) Sig (Original) ferrous sulfate 325 mg oral tablet (4 sources) Start: 11-07-2023 take 325 mg by mouth once daily Ferrous Sulfate Active 325 MG PO DAILY November 07, 2023 1:00am ibuprofen 200 mg oral tablet (2 sources) Nonsteroidal Anti-inflammatory Drug Start: 11-25-2023 Ibuprofen (Advil) 200 mg tablet Active 400 MG PO NEEDED November 25, 2023 12:00am Multivit 07-Ngmo-Scinot 1-Dha (Pnv-Dha) 27 mg iron-1 mg -300 mg capsule (8 sources) Start: 05-26-2023 take 1 capsule by mouth once daily Multivit 13-Ohfb-Caiiwu 1-Dha (Pnv-Dha) 27 mg iron-1 mg -300 mg capsule Active 1 CAP PO DAILY May 26, 2023 12:00am Start: 05-26-2023 Multivit 47-Ir on-Folate 1-Dha (Pnv-Dha) 27 mg iron-1 mg -300 mg capsule Active CAP PO May 26, 2023 12:00am Start: 05-26-2023 Multivit 47-Ir on-Folate 1-Dha (Pnv-Dha) 27 mg iron-1 mg -300 mg capsule Active CAP PO May 25, 2023 11:00pm oxyCODONE hydrochloride 5 mg oral tablet (1 source) Opioid Agonist Start: 12-04-2023 take 5 mg by mouth every eight hours Oxycodone Active 5 MG PO Q8H 10 December 04, 2023 Start: 12-04-2023 take 5 mg by mouth e very eight hours Oxycodone Active 5 MG PO Q8H 10 December 04, 2023 Problems Active Problems Problem Classification Problem Date Documented Date Episodic/Chronic Bacterial infection; unspecified site (19 sources) Bacteria present; Translations: [Streptococcus, group B, as the cause of diseases classified elsewhere] Onset: 11-25-2023 11-10-2023 Episodic Calculus of urinary tract (1 source) Kidney stone; Translations: [Calculus of kidney] 12-04-2023 Episodic Diabetes or abnormal glucose tolerance complicating ; childbirth; or the puerperium (20 sources) Abnormal glucose level; Translations: [Abnormal glucose complicating ] Onset: 11-25-2023 09-10-2023 Episodic Early or threatened labor (10 sources) False labor; Translations: [False labor, unspecified] Episodic Miscellaneous mental health disorders (1 source) depression; Translations: [ depression] Onset: 02-10-2024 Episodic Other complications of (9 sources) Anemia of ; Translations: [Anemia complicating , unspecified trimester] 04-07-2022 Chronic Other complications of (20 sources) Anemia complicating , unspecified trimester; Translations: [Anemia Date -???-???-???-???-?? ?-???-???-???-???-? ??-???-???- EGA Weight BP Urine Prot -???-???-???-???-?? ?-???-???-???-???-? ??-???-???- Glucose FHR FuHt Pres Dilation -???-???-???-???-?? ?-???-???-???-???-? ??-???-???- Effaced St Visit Note 05/26/23 -???-???-???-???-?? ?-???-???-???-???-? ??-???-???- 12w 4d 117 lb (+0 oz) 101/67 -???-???-???-???-?? ?-???-???-???-???-? ??-???-???- 157 -???-???-???-???-?? ?-???-???-???-???-? ??-???-???- LC CRL not c w LMP. ZELALEM changed to 12/04/2023. HC/AC/FL =12w4d. discussed and declines nipt. anatomy scan with [facility] due to insurance cost. 07/01/23 -???-???-???-???-?? ?-???-???-???-???-? ??-???-???- 17w 5d 121 lb 8 oz (+4 lb 8 oz) 102/67 Negative -???-???-???-???-?? ?-???-???-???-???-? ??-???-???- Negative -???-???-???-???-?? ?-???-???-???-???-? ??-???-???- KW- (more content not included)... Normal [facility] Hematocrit Auto (Bld) [Volum e fraction]Ordered By: Peggy Jauregui on 11-25-2023 Hematocrit (Bld) [Volume fraction] 34.2 % 37-47 [facility] Immature granulocytes/100 WB C Auto (Bld)Ordered By: Peggy Jauregui on 11-25-2023 Immature granulocytes/100 WBC (Bld) 1.400 % 0.0-0.9 [facility] Comment on above: IG% - Immature Granu locytes (promyelocytes, myelocytes and metamyelocytes) > 1% indicates that a LEFT SHIFT is Present. L509.8000on 11-25-2023 Syphilis Abs Non-Reactive Normal [facility] Comment on above: Performed By: #### L 509.8000 ####[facility] [id number] [place], [place], [address] Laboratory - Chemistry and C hemistry - challengeon 11-25-2023 Glucose Ql (U) Negative [facility] Laboratory - Hematology and Cell countsOrdered By: Peggy Jauregui on 11-25-2023 MCH (RBC) [Entitic mass] 23.4 pg 27.0-32.0 [facility] MCHC (RBC) [Mass/Vol] 29.8 g/dL 32-36 [facility] Nucleated RBC/100 WBC (Bld) [Ratio] 0 % 0-5 [facility] Platelet mean volume (Bld) [Entitic vol] 10.8 fL 6.2-12.0 [facility] Platelets (Bld) [#/Vol] 170 10*3/uL 150-450 [facility] Laboratory - Urinalysison Protein Ql (U) Negative [facility] Literature Teacher Office Visit Reporton 11-25-2023 Literature Teacher Office Visit Report [facility] [address] [place], [place] [address] OFFICE VISIT Date of Service: 11/25/23 MR#: [id number] Acct: [id number] Name: PETE STEWART Rep #: [id number] : 1995 Provider: CAMDEN Bob ams Age/Sex: 28/F [place] [facility] [place]: Signed Intake Vital Signs 11/21/23 11:51 11/21/23 15:24 11/25/23 11:17 Height 5 ft 3 in 5 ft 3 in 5 ft 3 in Weight: 159 lb 2 oz BMI 28.1 BP 118/70 Intake Visit Reasons: OB 38,5 IUGR Automobile T[employer] Builder Required: No Is patient in pain?: No Allergies No Known Allergies Allergy (Verified 11/25/23 11:22) Medications multivitamin no.47-iron fum 27 mg-folate no.1 1 mg-dha 300 mg capsule (PNV-DHA) cap PO 05/26/23 [History Confirmed 11/25/23] ferrous sulfate 325 mg (65 mg iron) tablet 325 mg PO DAILY 11/07/23 [History Confirmed 11/25/23] Last Menstrual Period: 03/29/23 Zika: Zika virus screening: Negative : No PFSH PFSH Medical History 38 weeks gestation of Alcohol use Anemia affecting Back pain Dizziness False labor Migraine headache Non-smoker Spontaneous rupture of membranes Vaginal delivery Wears glasses Surgical History H/O dilation and curettage Hx of myringotomy Hx of wisdom tooth extraction Family History Other Hx of wisdom tooth extraction Social History adopted: No household members: family housing: house number of children: 1 current occupational status: employed 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 occupational exposures/hazards: Yes pets and animals: Yes (not managing litter box) pets and animals: cat(s), dog(s), bird(s), snake(s) and farm animals history of recent travel: No sexually active: Yes Smoking Status: Never smoker alcohol intake: former details: not while substance use type: does not use seatbelt use: always do you feel safe at home: Yes additional social history: spouse is wafer production lead worker, daughter Angie History 3 Elective abortions Hx Para 1 Spontaneous abortions 1 Hx # Term Pregnancies 1 Ectopic pregnancies Hx # Pregnancies Multiple births # of living children 1 Past Pregnancies Del. Date Name GA/Weeks Outcome Route Bth Weight Infant Gen Labor Lgth Anesthesia Del Locatn Provider FOB 04/13/21 6 spontaneous 03/29/22 Angie 40 live - full term 7#14 Female [facility] Chapin wong [place] HPI OB 38,5 IUGR Details: PETE STEWART is a 28 year old who presents for routine OB visit. OB Visit ZELALEM Calculator Estimated Delivery Date Method Current WG Current Estimate 12/04/23 Ultrasound #1 38w 5d Other Estimates 01/03/24 LMP (Uncertain) 34w 3d Expected Delivery Route/Plan Labor Preferences- CB/BF classes: no labor support person: Matthew labor intervention preferences: pain management options preferred: epidural cut cord/dad catch: yes : yes PP control planned: Discussed discussed possible routes of delivery and associated risks: [] special requests: [] Specific Issue/Plans Covid status: [] Flu vaccine: declines Tdap vaccine: [] Rhogam: NA LARC form signed: yes Problem list reviewed and updated with the most current plan of care details and appropriate orders placed. Relevant counseling for the gestational age provided. Continue routine care and follow up unless otherwise noted in visit notes/problem list details Initial Weight: 117 lb Date -???-???-???-???-?? ?-???-???-???-???-? ??-???-???- EGA Weight BP Urine Prot -???-???-???-???-?? ?-???-???-???-???-? ??-???-???- Glucose FHR FuHt Pres Dilation -???-???-???-???-?? ?-???-???-???-???-? ??-???-???- Effaced St Visit Note 05/26/23 -???-???-???-???-?? ?-???-???-???-???-? ??-???-???- 12w 4d 117 lb (+0 oz) 101/67 -???-???-???-???-?? ?-???-???-???-???-? ??-???-???- 157 -???-???-???-???-?? ?-???-???-???-???-? ??-???-???- LC CRL not c w LMP. ZELALEM changed to 12/04/2023. HC/AC/FL =12w4d. discussed and declines nipt. anatomy scan with [facility] due to insurance cost. 07/01/23 -???-???-???-???-?? ?-???-???-???-???-? ??-???-???- 17w 5d 121 lb 8 oz (+4 lb 8 oz) 102/67 Negative -???-???-???-???-?? ?-???-???-???-???-? ??-???-???- Negative -???-???-???-???-?? ?-???-???-???-???-? 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 FHT with handheld US KW-no vb/cramping. FHT with handhe ld US. to call to schedule anatomy US 07/28/23 -???-???-???-???-?? ?-???-???-???-???-? ??-???-???- 21w 4d 133 lb 8 oz (+16 lb 8 oz) 102/65 Negative -???-???-???-??? (more content not included)... Normal [facility] RBC Auto (Bld) [#/Vol]Ordere d By: Peggy Jauregui on 11-25-2023 RBC (Bld) [#/Vol] 4.36 10*6/uL 4.2-5.4 [facility] Serum Treponema species anti body detectionOrdered By: Peggy Jauregui on 11-25-2023 Treponema sp Ab Ql (S) Non-Reactive [facility] Type AND Screenon 11-25-2023 Ab SCREEN GEL Negative Normal [facility] Comment on above: Order Comment: Labor Performed By: #### L 100.0100, BTS #### [facility] [address] [place], [address] ABO and Rh group Nom (Bld) Blood group A Rh(D) positive Normal [facility] Comment on above: Order Comment: Labor Performed By: #### L 100.0100, BTS #### [facility] [address] [place], [address] Laboratory - Chemistry and C hemistry - challengeon 11-21-2023 Glucose Ql (U) Negative [facility] Laboratory - Urinalysison Protein Ql (U) Negative [facility] OB Limited With Biometricson 11-21-2023 OB Limited With Biometrics [facility] Services [address] [place] [id number] OB Limited With Biometrics MR#: [id number] Acct: [id number] Name: PETE STEWART Rep #: [id number] : 1995 F 28 From: Maury jackson MD PCP: Care Physician,No Primary Status: REG CLI Study: OB Limited With Biometrics Date of Exam: 11/20 Exam# [id number] Ordering Dr: Angie Jasmine CNM -[id number] STUDY: SECOND AND THIRD TRIMESTER OBSTETRICAL ULTRASOUND - LIMITED REASON FOR EXAM: Female, 28 years old uterine size date discrepancy LMP: February 27, 2023. PRIOR ULTRASOUND: Comparison is made with prior study dated October 13, 2023. TECHNIQUE: Transabdominal TECHNICAL QUALITY: Adequate. FINDINGS: There is a single intrauterine fetus. The fetus is in a cephalic presentation. There is demonstrated cardiac activity with a heart rate of 141 bpm. There is a normal amniotic fluid volume. The largest amniotic fluid pocket measures 5.1 cm. The amniotic fluid index (NOEL) is 20 cm. The placenta is anterior in location and is not low lying. There are Grade 1 placental changes. The cervix was not measured due to the head position. BIOMETRY: BPD: 8.96 cm: 36 weeks, 2 days HC: 32.9 cm: 37 weeks, 2 days AC: 34 cm: 37 weeks, 6 days FL: 6.4 cm: 33 weeks, 0 days Age by LMP: 38 weeks, 1 days. ZELALEM by LMP: December 04, 2023. age by prior US: 37 weeks, 0 days. ZELALEM by prior US: December 12, 2023. age by current US: 36 weeks, 3 days. ZELALEM by current US: December 16, 2023. Estimated weight: 2950 grams, +/- 442 grams, 23 percentile. US/OB Limited With Biometrics IMPRESSION: Single live intrauterine gestation with a mean gestational age of 37 weeks. The measurements obtained today fall within the normal expected range. Electronically Signed: Maury Carlson MD at 15:09 EDT , CC: CAMDEN Jasmine; No Primary Care Physician Central Control Room Operator: Signed Normal [facility] OB Triage Progress Noteon OB Triage Progress Note [facility] Medical Records Department [address] [facility] [place] [address] OB Triage Progress Note 11/21/23 1505 MR#: [id number] Acct: [id number] Name: PETE STEWART Rep #: [id number] : 1995 28 From: Angie Jasmine CNM PCP: Care Physician,No Primary Status:REG CLI Y DOS: Location: [place] [address] Progress Notes Date of Service: 11/21/23 Progress Note: Patient presents for triage evaluation secondary to uterine size less than dates in the office. FHT: 125 Moderate variability reactive no decelerations category I tracing [place]one: no Contractions Assessment and plan: normal growth and NOEL, noted shortened long bone. Reactive NST, reassuring maternal and status patient discharged to home to follow-up in the office. See problem list details for additional plan information. Charges/Coding Multi Select Codes Urinary/Genital Urinary/Genital CPT Codes: 93185-58 non-stress test Interp Assessment Plan (1) Positive GBS test: COMMENT: treatment in labor. PCN (2) Uterine size-date discrepancy, third trimester: COMMENT: noted shortened long bone on US. consider IOL at 39 weeks. growth US (30%) normal noel at 34 weeks (3) Anemia during : COMMENT: add FE (4) Abnormal glucose affecting : COMMENT: 3HR-passed (5) Placental abnormality: QUALIFIERS: Trimester: second trimester Qualified Code(s): O43.102 - Malformation of placenta, unspecified, second trimester COMMENT: placenta lakes seen (6) Supervision of high-risk : QUALIFIERS: Trimester: second trimester Qualified Code(s): O09.92 - Supervision of high risk , unspecified, second trimester COMMENT: [id number] Zelalem 12/04/2023 girl PC: Angie. partner: matthew (7) History of depression: COMMENT: without medications/counseling center manager ing (8) : QUALIFIERS: Weeks of gestation: 38 weeks Qualified Code(s): Z3A.38 - 38 weeks gestation of COMMENT: declines nipt,carrier and ntd. reviewed anatomy. +placenta lakes. 11/21/23 1508 Date Angie Jasmine CNM Cosigner Signature (if applicable): Date __ CC: CAMDEN Jasmine; No Primary Care Physician Signed Normal [facility] Literature Teacher Office Visit Reporton 11-21-2023 Literature Teacher Office Visit Report [facility] [address] [place] [address] OFFICE VISIT Date of Service: 11/21/23 MR#: [id number] Acct: [id number] Name: PETE STEWART Rep #: [id number] : 1995 Provider: Dr. Peggy hagen MD Age/Sex: 28/F [place] [facility] [place]: Signed Intake Vital Signs 10/24/23 11:13 11/14/23 15:09 11/21/23 11:13 Height 5 ft 3 in 5 ft 3 in 5 ft 3 in Weight: 158 lb BMI 28.0 BP 109/69 Intake Visit Reasons: 38 WK OB Chief Complaint: 38 Week OB [employer]obile [employer] Builder Required: No Is patient in pain?: No Allergies No Known Allergies Allergy (Verified 11/21/23 11:12) Medications multivitamin no.47-iron fum 27 mg-folate no.1 1 mg-dha 300 mg capsule (PNV-DHA) cap PO 05/26/23 [History Confirmed 11/21/23] ferrous sulfate 325 mg (65 mg iron) tablet 325 mg PO DAILY 11/07/23 [History Confirmed 11/21/23] Last Menstrual Period: 03/29/23 Zika: Zika virus screening: Negative : No PFSH PFSH Medical History 38 weeks gestation of Alcohol use Anemia affecting Back pain Dizziness False labor Migraine headache Non-smoker Spontaneous rupture of membranes Vaginal delivery Wears glasses Surgical History H/O dilation and curettage Hx of myringotomy Hx of wisdom tooth extraction Family History Other Hx of wisdom tooth extraction Social History adopted: No household members: family housing: house number of children: 1 current occupational status: employed 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 occupational exposures/hazards: Yes pets and animals: Yes (not managing litter box) pets and animals: cat(s), dog(s), bird(s), snake(s) and farm animals history of recent travel: No sexually active: Yes Smoking Status: Never smoker alcohol intake: former details: not while substance use type: does not use seatbelt use: always do you feel safe at home: Yes additional social history: spouse is wafer production lead worker, daughter Angie History 3 Elective abortions Hx Para 1 Spontaneous abortions 1 Hx # Term Pregnancies 1 Ectopic pregnancies Hx # Pregnancies Multiple births # of living children 1 Past Pregnancies Del. Date Name GA/Weeks Outcome Route Bth Weight Gen Labor Lgth Anesthesia Del Locatn Provider FOB 04/13/21 6 spontaneous 03/29/22 Angie 40 live - full term 7#14 Female [facility] Chapin Castro HPI 38 WK OB Details: PETE STEWART is a 28 year old who presents for routine OB visit. OB Visit ZELALEM Calculator Estimated Delivery Date Method Current WG Current Estimate 12/04/23 Ultrasound #1 38w 1d Other Estimates 01/03/24 LMP (Uncertain) 33w 6d Expected Delivery Route/Plan Labor Preferences- CB/BF classes: no labor support person: Matthew labor intervention preferences: pain management options preferred: epidural cut cord/dad catch: yes : yes PP control planned: Discussed discussed possible routes of delivery and associated risks: [] special requests: [] Specific Issue/Plans Covid status: [] Flu vaccine: declines Tdap vaccine: [] Rhogam: NA LARC form signed: yes Problem list reviewed and updated with the most current plan of care details and appropriate orders placed. Relevant counseling for the gestational age provided. Continue routine care and follow up unless otherwise noted in visit notes/problem list details Initial Weight: 117 lb Date -???-???-???-???-?? ?-???-???-???-???-? ??-???-???- EGA Weight BP Urine Prot -???-???-???-???-?? ?-???-???-???-???-? ??-???-???- Glucose FHR FuHt Pres Dilation -???-???-???-???-?? ?-???-???-???-???-? ??-???-???- Effaced St Visit Note 05/26/23 -???-???-???-???-?? ?-???-???-???-???-? ??-???-???- 12w 4d 117 lb (+0 oz) 101/67 -???-???-???-???-?? ?-???-???-???-???-? ??-???-???- 157 -???-???-???-???-?? ?-???-???-???-???-? ??-???-???- LC CRL not c w LMP. ZELALEM changed to 12/04/2023. HC/AC/FL =12w4d. discussed and declines nipt. anatomy scan with [facility] due to insurance cost. 07/01/23 -???-???-???-???-?? ?-???-???-???-???-? ??-???-???- 17w 5d 121 lb 8 oz (+4 lb 8 oz) 102/67 Negative -???-???-???-???-?? ?-???-???-???-???-? ??-???-???- Negative -???-???-???-???-?? ?-???-???-???-???-? 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 FHT with handheld US KW-no vb/cramping. FHT with handhe ld US. to call to schedule anatomy US 07/28/23 -???-???-???-???-?? ?-???-???-???-???-? ??-???-???- 21w 4d 133 lb 8 oz (+16 lb 8 oz) 102/65 Negati (more content not included)... Normal [facility] - Chemistry and C hemistry - challengeon 11-14-2023 Glucose Ql (U) Negative [facility] [facility] Laboratory - Urinalysison Protein Ql (U) Negative [facility] Literature Teacher Office Visit Reporton 11-14-2023 Literature Teacher Office Visit Report [facility] [address] [place] [address] OFFICE VISIT Date of Service: 11/14/23 MR#: [id number] Acct: [id number] Name: PETE STEWART Rep #: [id number] : 1995 Provider: CAM[place] uriostegui Age/Sex: 28/F [place] [facility] [place] Signed Intake Vital Signs 10/24/23 11:13 11/07/23 13:21 11/14/23 15:09 Height 5 ft 3 in 5 ft 3 in 5 ft 3 in Weight: 157 lb 2 oz BMI 27.8 BP 118/72 Intake Visit Reasons: 37 WK OB [employer] Required: No Is patient in pain?: No Allergies No Known Allergies Allergy (Verified 11/14/23 15:15) Medications multivitamin no.47-iron fum 27 mg-folate no.1 1 mg-dha 300 mg capsule (PNV-DHA) cap PO 05/26/23 [History Confirmed 11/14/23] ferrous sulfate 325 mg (65 mg iron) tablet 325 mg PO DAILY 11/07/23 [History Confirmed 11/14/23] Last Menstrual Period: 03/29/23 Zika: Zika virus screening: Negative : No PFSH PFSH Medical History 38 weeks gestation of Alcohol use Anemia affecting Back pain Dizziness False labor Migraine headache Non-smoker Spontaneous rupture of membranes Vaginal delivery Wears glasses Surgical History H/O dilation and curettage Hx of myringotomy Hx of wisdom tooth extraction Family History Other Hx of wisdom tooth extraction Social History adopted: No household members: family housing: house number of children: 1 current occupational status: employed 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 occupational exposures/hazards: Yes pets and animals: Yes (not managing litter box) pets and animals: cat(s), dog(s), bird(s), snake(s) and farm animals history of recent travel: No sexually active: Yes Smoking Status: Never smoker alcohol intake: former details: not while substance use type: does not use seatbelt use: always do you feel safe at home: Yes additional social history: spouse is wafer production lead worker, daughter Angie History 3 Elective abortions Hx Para 1 Spontaneous abortions 1 Hx # Term Pregnancies 1 Ectopic pregnancies Hx # Pregnancies Multiple births # of living children 1 Past Pregnancies Del. Date Name GA/Weeks Outcome Route Bth Weight Infant Gen Labor Lgth Anesthesia Del Locatn Provider FOB 04/13/21 6 spontaneous 03/29/22 Angie 40 live - full term 7#14 Female [facility] Chapin Castro HPI 37 WK OB Details: PETE STEWART is a 28 year old who presents for routine OB visit. OB Visit ZELALEM Calculator Estimated Delivery Date Method Current WG Current Estimate 12/04/23 Ultrasound #1 37w 1d Other Estimates 01/03/24 LMP (Uncertain) 32w 6d Expected Delivery Route/Plan Labor Preferences- CB/BF classes: no labor support person: Matthew labor intervention preferences: pain management options preferred: epidural cut cord/dad catch: yes : yes PP control planned: Discussed discussed possible routes of delivery and associated risks: [] special requests: [] Specific Issue/Plans Covid status: [] Flu vaccine: declines Tdap vaccine: [] Rhogam: NA LARC form signed: yes Problem list reviewed and updated with the most current plan of care details and appropriate orders placed. Relevant counseling for the gestational age provided. Continue routine care and follow up unless otherwise noted in visit notes/problem list details Initial Weight: 117 lb Date -???-???-???-???-?? ?-???-???-???-???-? ??-???-???- EGA Weight BP Urine Prot -???-???-???-???-?? ?-???-???-???-???-? ??-???-???- Glucose FHR FuHt Pres Dilation -???-???-???-???-?? ?-???-???-???-???-? ??-???-???- Effaced St Visit Note 05/26/23 -???-???-???-???-?? ?-???-???-???-???-? ??-???-???- 12w 4d 117 lb (+0 oz) 101/67 -???-???-???-???-?? ?-???-???-???-???-? ??-???-???- 157 -???-???-???-???-?? ?-???-???-???-???-? ??-???-???- LC CRL not c w LMP. ZELALEM changed to 12/04/2023. HC/AC/FL =12w4d. discussed and declines nipt. anatomy scan with [facility] due to insurance cost. 07/01/23 -???-???-???-???-?? ?-???-???-???-???-? ??-???-???- 17w 5d 121 lb 8 oz (+4 lb 8 oz) 102/67 Negative -???-???-???-???-?? ?-???-???-???-???-? ??-???-???- Negative -???-???-???-???-?? ?-???-???-???-???-? 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 FHT with handheld US KW-no vb/cramping. FHT with handhe ld US. to call to schedule anatomy US 07/28/23 -???-???-???-???-?? ?-???-???-???-???-? ??-???-???- 21w 4d 133 lb 8 oz (+16 lb 8 oz) 102/65 Negative -???-???-???-???-?? ?-??? (more content not included)... Normal [facility] Rule out Beta Strep (Grp. B) on 11-11-2023 PAULINA Streptococcus agalactiae (B) Amount Growth Growth Streptococcus agalactiae (B): REACTION Ampicillin Islt CECILE <=0.25 Penicillin G Islt CECILE <=0.06 S cefTRIAXone Islt CECILE <=0.12 S Clindamycin Islt CECILE >=1 R Clindamycin.induced Susc Islt NEG Linezolid Islt CECILE <=2 S Vancomycin Islt CECILE 0.5 S Normal [facility] Comment on above: Performed By: #### M [id number] #### [facility] [address] [place], [place], [id number] Laboratory - Chemistry and C hemistry - challengeon 11-07-2023 Glucose Ql (U) Negative [facility] - Urinalysison Protein Ql (U) Trace [facility] No Panel InformationOrdered By: Emily Johnson on 11-07-2023 Group B Streptococcus Culture Streptococcus agalactiae (B) [facility] Literature Teacher Office Visit Reporton 11-07-2023 Literature Teacher Office Visit Report [facility] [address] [place] [address] OFFICE VISIT Date of Service: 11/07/23 MR#: [id number] Acct: [id number] Name: PETE STEWART Rep #: [id number] : 1995 Provider: CAM[place] uriostegui Age/Sex: 28/F [place] [facility] [place]: Signed Intake Vital Signs 10/24/23 11:13 11/07/23 13:21 Height 5 ft 3 in 5 ft 3 in Weight: 155 lb BMI 27.4 BP 104/70 Blood Pressure Location Rt brachial Position Sitting Intake Visit Reasons: 36 WK OB Chief Complaint: Routine OB 36 WK [employer] Required: No Is patient in pain?: No Feel stressed/tense/nerv ous/anxious/difficu lty sleeping: rather much (Difficulty sleeping) Allergies No Known Allergies Allergy (Verified 11/07/23 13:27) Medications multivitamin no.47-iron fum 27 mg-folate no.1 1 mg-dha 300 mg capsule (PNV-DHA) cap PO 05/26/23 [History Confirmed 11/07/23] ferrous sulfate 325 mg (65 mg iron) tablet 325 mg PO DAILY 11/07/23 [History Confirmed 11/07/23] Last Menstrual Period: 03/29/23 Zika: Zika virus screening: Negative : No PFSH PFSH Medical History 38 weeks gestation of Alcohol use Anemia affecting Back pain Dizziness False labor Migraine headache Non-smoker Spontaneous rupture of membranes Vaginal delivery Wears glasses Surgical History H/O dilation and curettage Hx of myringotomy Hx of wisdom tooth extraction Family History Other Hx of wisdom tooth extraction Social History adopted: No household members: family housing: house number of children: 1 current occupational status: employed 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 occupational exposures/hazards: Yes pets and animals: Yes (not managing litter box) pets and animals: cat(s), dog(s), bird(s), snake(s) and farm animals history of recent travel: No sexually active: Yes Smoking Status: Never smoker alcohol intake: former details: not while substance use type: does not use seatbelt use: always do you feel safe at home: Yes additional social history: spouse is wafer production lead worker, daughter Angie History 3 Elective abortions Hx Para 1 Spontaneous abortions 1 Hx # Term Pregnancies 1 Ectopic pregnancies Hx # Pregnancies Multiple births # of living children 1 Past Pregnancies Del. Date Name GA/Weeks Outcome Route Bth Weight Gen Labor Lgth Anesthesia Del Locatn Provider FOB 04/13/21 6 spontaneous 03/29/22 Angie 40 live - full term 7#14 Female [facility] Chapin Castro HPI 36 WK OB Details: PETE STEWART is a 28 year old who presents for routine OB visit. OB Visit ZELALEM Calculator Estimated Delivery Date Method Current WG Current Estimate 12/04/23 Ultrasound #1 36w 1d Other Estimates 01/03/24 LMP (Uncertain) 31w 6d Expected Delivery Route/Plan Labor Preferences- CB/BF classes: no labor support person: Matthew labor intervention preferences: pain management options preferred: epidural cut cord/dad catch: yes : yes PP control planned: Discussed discussed possible routes of delivery and associated risks: [] special requests: [] Specific Issue/Plans Covid status: [] Flu vaccine: declines Tdap vaccine: [] Rhogam: NA LARC form signed: yes Problem list reviewed and updated with the most current plan of care details and appropriate orders placed. Relevant counseling for the gestational age provided. Continue routine care and follow up unless otherwise noted in visit notes/problem list details Initial Weight: 117 lb Date -???-???-???-???-?? ?-???-???-???-???-? ??-???-???- EGA Weight BP Urine Prot -???-???-???-???-?? ?-???-???-???-???-? ??-???-???- Glucose FHR FuHt Pres Dilation -???-???-???-???-?? ?-???-???-???-???-? ??-???-???- Effaced St Visit Note 05/26/23 -???-???-???-???-?? ?-???-???-???-???-? ??-???-???- 12w 4d 117 lb (+0 oz) 101/67 -???-???-???-???-?? ?-???-???-???-???-? ??-???-???- 157 -???-???-???-???-?? ?-???-???-???-???-? ??-???-???- LC CRL not c w LMP. ZELALEM changed to 12/04/2023. HC/AC/FL =12w4d. discussed and declines nipt. anatomy scan with [facility] due to insurance cost. 07/01/23 -???-???-???-???-?? ?-???-???-???-???-? ??-???-???- 17w 5d 121 lb 8 oz (+4 lb 8 oz) 102/67 Negative -???-???-???-???-?? ?-???-???-???-???-? ??-???-???- Negative -???-???-???-???-?? ?-???-???-???-???-? 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 FHT with handheld US KW-no vb/cramping. FHT with handhe ld US. to call to schedule (more content not included)... Normal [facility] - Chemistry and C hemistry - challengeon 10-24-2023 Glucose Ql (U) Negative [facility] - Urinalysison Protein Ql (U) Negative [facility] Literature Teacher Office Visit Reporton 10-24-2023 Literature Teacher Office Visit Report [facility] [address] [place] [address] OFFICE VISIT Date of Service: 10/24/23 MR#: [id number] Acct: [id number] Name: PETE STEWART Rep #: [id number] : 1995 Provider: CAMDEN Bob ams Age/Sex: 28/F [place] [facility] [place]: Signed Intake Vital Signs 10/09/23 09:57 10/24/23 11:07 10/24/23 11:13 Height 5 ft 3 in 5 ft 3 in 5 ft 3 in Weight: 151 lb BMI 26.7 BP 118/68 Intake Visit Reasons: 34 WK OB [employer] Required: No Is patient in pain?: No Allergies No Known Allergies Allergy (Verified 10/24/23 11:12) Medications multivitamin no.47-iron fum 27 mg-folate no.1 1 mg-dha 300 mg capsule (PNV-DHA) cap PO 05/26/23 [History Confirmed 10/24/23] Last Menstrual Period: 03/29/23 Zika: Zika virus screening: Negative : No PFSH PFSH Medical History 38 weeks gestation of Alcohol use Anemia affecting Back pain Dizziness False labor Migraine headache Non-smoker Spontaneous rupture of membranes Vaginal delivery Wears glasses Surgical History H/O dilation and curettage Hx of myringotomy Hx of wisdom tooth extraction Family History Other Hx of wisdom tooth extraction Social History adopted: No household members: family housing: house number of children: 1 current occupational status: employed 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 occupational exposures/hazards: Yes pets and animals: Yes (not managing litter box) pets and animals: cat(s), dog(s), bird(s), snake(s) and farm animals history of recent travel: No sexually active: Yes Smoking Status: Never smoker alcohol intake: former details: not while substance use type: does not use seatbelt use: always do you feel safe at home: Yes additional social history: spouse is wafer production lead worker, daughter Angie History 3 Elective abortions Hx Para 1 Spontaneous abortions 1 Hx # Term Pregnancies 1 Ectopic pregnancies Hx # Pregnancies Multiple births # of living children 1 Past Pregnancies Del. Date Name GA/Weeks Outcome Route Bth Weight Gen Labor Lgth Anesthesia Del Locatn Provider FOB 04/13/21 6 spontaneous 03/29/22 Angie 40 live - full term 7#14 Female [facility] Chapin Castro HPI 34 WK OB Details: PETE STEWART is a 28 year old who presents for routine OB visit. OB Visit ZELALEM Calculator Estimated Delivery Date Method Current WG Current Estimate 12/04/23 Ultrasound #1 34w 1d Other Estimates 01/03/24 LMP (Uncertain) 29w 6d Expected Delivery Route/Plan Labor Preferences- CB/BF classes: no labor support person: Matthew labor intervention preferences: pain management options preferred: epidural cut cord/dad catch: yes : yes PP control planned: Discussed discussed possible routes of delivery and associated risks: [] special requests: [] Specific Issue/Plans Covid status: [] Flu vaccine: declines Tdap vaccine: [] Rhogam: NA LARC form signed: yes Problem list reviewed and updated with the most current plan of care details and appropriate orders placed. Relevant counseling for the gestational age provided. Continue routine care and follow up unless otherwise noted in visit notes/problem list details Initial Weight: 117 lb Date -???-???-???-???-?? ?-???-???-???-???-? ??-???-???- EGA Weight BP Urine Prot -???-???-???-???-?? ?-???-???-???-???-? ??-???-???- Glucose FHR FuHt Pres Dilation -???-???-???-???-?? ?-???-???-???-???-? ??-???-???- Effaced St Visit Note 05/26/23 -???-???-???-???-?? ?-???-???-???-???-? ??-???-???- 12w 4d 117 lb (+0 oz) 101/67 -???-???-???-???-?? ?-???-???-???-???-? ??-???-???- 157 -???-???-???-???-?? ?-???-???-???-???-? ??-???-???- LC CRL not c w LMP. ZELALEM changed to 12/04/2023. HC/AC/FL =12w4d. discussed and declines nipt. anatomy scan with [facility] due to insurance cost. 07/01/23 -???-???-???-???-?? ?-???-???-???-???-? ??-???-???- 17w 5d 121 lb 8 oz (+4 lb 8 oz) 102/67 Negative -???-???-???-???-?? ?-???-???-???-???-? ??-???-???- Negative -???-???-???-???-?? ?-???-???-???-???-? 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 FHT with handheld US KW-no vb/cramping. FHT with handhe ld US. to call to schedule anatomy US 07/28/23 -???-???-???-???-?? ?-???-???-???-???-? ??-???-???- 21w 4d 133 lb 8 oz (+16 lb 8 oz) 102/65 Negative -???-???-???-???-?? ?-???-???-???-???-? ??-???-???- Negative 142 -???-???-???-???-?? ?-???-???-???-???-? ??-???-???- LC- no vb (more content not included)... Normal [facility] OB Limited With [facility] 10-13-2023 OB Limited With Biometric[facility] [address] [place] [address] OB Limited With [employer]ometric[employer] MR#: [id number] Acct: [id number] Name: PETE STEWART Rep #: [id number] : 1995 F 28 From: Roger Bernal PCP: Care Physician,No Primary Status: REG CLI Study: OB Limited With [employer]ometric[employer] Date of Exam: 10/13 Exam# [id number] Ordering Dr: Peggy Jauregui -[id number] STUDY: SECOND AND THIRD TRIMESTER OBSTETRICAL ULTRASOUND - LIMITED REASON FOR EXAM: Female, 28 years old Uterine size-date discrepancy LMP: 02/27/2023 PRIOR ULTRASOUND: 07/15/2023 TECHNIQUE: Transabdominal TECHNICAL QUALITY: Adequate. FINDINGS: There is a single intrauterine fetus. The fetus is in a cephalic presentation. There is demonstrated cardiac activity with a heart rate of 152 bpm. There is a normal amniotic fluid volume. The largest amniotic fluid pocket measures 4.5 cm. The amniotic fluid index (NOEL) is 16.6 cm. The placenta is anterior in location and is not low lying. There are Grade 1 placental changes. The cervix measures 3.0 cm in length. BIOMETRY: BPD: 7.81 cm: 31 weeks, 2 days HC: 28.67 cm: 31 weeks, 4 days AC: 27.99 cm: 32 weeks, 0 days FL: 6.33 cm: 32 weeks, 5 days Age by LMP: 32 weeks, 4 days. ZELALEM by LMP: 12/04/2023. . age by current US: 31 weeks, 3 days. ZELALEM by current US: 12/12/2023. Estimated weight: 1931 grams, +/- 290 grams, 30 percentile. Gender: Indeterminant US/OB Limited With Biometrics IMPRESSION: Live intrauterine with estimated gestational age of 32 weeks 4 days with estimated date of confinement of 12/04/2023 with weight of 1931g at 30th percentile. Electronically Signed: Roger Singer DO at 17:07 EST , CC: Dr. Peggy Jauregui MD; No Primary Care Physician Central Control Room Operator: Signed Normal [facility] Literature Teacher Office Visit Reporton 10-09-2023 Literature Teacher Office Visit Report [facility] [place] [address] [place] [address] OFFICE VISIT Date of Service: 10/09/23 MR#: [id number] Acct: [id number] Name: PETE STEWART Rep #: [id number] : 1995 Provider: Dr. Peggy hagen MD Age/Sex: 28/F [place] [facility] [place]: Signed Intake Vital Signs 09/24/23 10:51 10/09/23 09:54 10/09/23 09:57 Height 5 ft 3 in 5 ft 3 in 5 ft 3 in Weight: 149 lb BMI 26.4 BP 107/65 Intake Visit Reasons: 32 WK OB [employer] Required: No Is patient in pain?: No Allergies No Known Allergies Allergy (Verified 10/09/23 09:57) Medications multivitamin no.47-iron fum 27 mg-folate no.1 1 mg-dha 300 mg capsule (PNV-DHA) cap PO 05/26/23 [History Confirmed 10/09/23] Last Menstrual Period: 03/29/23 Zika: Zika virus screening: Negative : No PFSH PFSH Medical History 38 weeks gestation of Alcohol use Anemia affecting Back pain Dizziness False labor Migraine headache Non-smoker Spontaneous rupture of membranes Vaginal delivery Wears glasses Surgical History H/O dilation and curettage Hx of myringotomy Hx of wisdom tooth extraction Family History Other Hx of wisdom tooth extraction Social History adopted: No household members: family housing: house number of children: 1 current occupational status: employed 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 occupational exposures/hazards: Yes pets and animals: Yes (not managing litter box) pets and animals: cat(s), dog(s), bird(s), snake(s) and farm animals history of recent travel: No sexually active: Yes Smoking Status: Never smoker alcohol intake: former details: not while substance use type: does not use seatbelt use: always do you feel safe at home: Yes additional social history: spouse is wafer production lead worker, daughter Angie History 3 Elective abortions Hx Para 1 Spontaneous abortions 1 Hx # Term Pregnancies 1 Ectopic pregnancies Hx # Pregnancies Multiple births # of living children 1 Past Pregnancies Del. Date Name GA/Weeks Outcome Route Bth Weight Gen Labor Lgth Anesthesia Del Locatn Provider FOB 04/13/21 6 spontaneous 03/29/22 Angie 40 live - full term 7#14 Female [facility] Chapin Castro HPI 32 WK OB Details: PETE STEWART is a 28 year old who presents for routine OB visit. OB Visit ZELALEM Calculator Estimated Delivery Date Method Current WG Current Estimate 12/04/23 Ultrasound #1 32w 0d Other Estimates 01/03/24 LMP (Uncertain) 27w 5d Expected Delivery Route/Plan Labor Preferences- CB/BF classes: no labor support person: Matthew labor intervention preferences: pain management options preferred: epidural cut cord/dad catch: yes : yes PP control planned: Discussed discussed possible routes of delivery and associated risks: [] special requests: [] Specific Issue/Plans Covid status: [] Flu vaccine: declines Tdap vaccine: [] Rhogam: NA LARC form signed: yes Problem list reviewed and updated with the most current plan of care details and appropriate orders placed. Relevant counseling for the gestational age provided. Continue routine care and follow up unless otherwise noted in visit notes/problem list details Initial Weight: 117 lb Date -???-???-???-???-?? ?-???-???-???-???-? ??-???-???- EGA Weight BP Urine Prot -???-???-???-???-?? ?-???-???-???-???-? ??-???-???- Glucose FHR FuHt Pres Dilation -???-???-???-???-?? ?-???-???-???-???-? ??-???-???- Effaced St Visit Note 05/26/23 -???-???-???-???-?? ?-???-???-???-???-? ??-???-???- 12w 4d 117 lb (+0 oz) 101/67 -???-???-???-???-?? ?-???-???-???-???-? ??-???-???- 157 -???-???-???-???-?? ?-???-???-???-???-? ??-???-???- LC CRL not c w LMP. ZELALEM changed to 12/04/2023. HC/AC/FL =12w4d. discussed and declines nipt. anatomy scan with [facility] due to insurance cost. 07/01/23 -???-???-???-???-?? ?-???-???-???-???-? ??-???-???- 17w 5d 121 lb 8 oz (+4 lb 8 oz) 102/67 Negative -???-???-???-???-?? ?-???-???-???-???-? ??-???-???- Negative -???-???-???-???-?? ?-???-???-???-???-? 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 FHT with handheld US KW-no vb/cramping. FHT with handhe ld US. to call to schedule anatomy US 07/28/23 -???-???-???-???-?? ?-???-???-???-???-? ??-???-???- 21w 4d 133 lb 8 oz (+16 lb 8 oz) 102/65 Negative -???-???-???-???-?? ?-???-???-???-???-? ??-???-???- Negative 142 -???-???-???-???-?? ?-???-???-???-???-? ??-???-???- LC- no vb (more content not included)... Normal [facility] Gestational GTT 3HR 100gon 0 09-30-2023 3HR GTT- GEST. Normal [facility] Comment on above: Order Comment: Y Result Comment: FAST ING 83 Col: 09/30/23 0701 GLUCOSE TOLERANCE TEST FOR Reference Interval GESTATIONAL DIABETES Fasting <105 mg/dL 1 hour <190 mg/dl 2 hour <165 mg/dl 3 hour <145 mg/dl 1 HR GLU 141 Col: 09/30/23 0805 2 HR GLU 111 Col: 09/30/23 0903 3 HR GLU 114 Col: 09/30/23 1005 Performed By: #### L [id number] #### [facility] [address] [place], [address] Quantitative serum or plasma 3 hour gestational glucose tolerance panelOrdered By: Dayami Maurer on 09-30-2023 Glucose tolerance 3 hours gestational panel See comment [facility] Comment on above: FASTING 83 Col: 09/03 0701GLUCOSE TOLERANCE TEST FOR Reference Interval GESTATIONAL DIABETES Fasting <105 mg/dL 1 hour <190 mg/dl 2 hour <165 mg/dl 3 hour <145 mg/dl 1 HR GLU 141 Col: 09/30/23 0805 2 HR GLU 111 Col: 09/30/23 0903 3 HR GLU 114 Col: 09/30/23 1005 Laboratory - Chemistry and C hemistry - challengeon 09-24-2023 Glucose Ql (U) Negative [facility] - Urinalysison Protein Ql (U) Negative [facility] Literature Teacher Office Visit Reporton 09-24-2023 Literature Teacher Office Visit Report [facility] [address] [place] [address] OFFICE VISIT Date of Service: 09/24/23 MR#: [id number] Acct: [id number] Name: PETE STEWART Rep #: [id number] : 1995 Provider: Dr. Dayami Hightower DO Age/Sex: 28/F [place] [facility] [place]: Signed Intake Vital Signs 09/10/23 09:04 09/24/23 10:51 09/24/23 10:51 Height 5 ft 3 in 5 ft 3 in 5 ft 3 in Weight: 147 lb 4 oz BMI 26.1 BP 93/61 Intake Visit Reasons: 30 WK OB [employer] Required: No Is patient in pain?: No Allergies No Known Allergies Allergy (Verified 09/24/23 10:51) Medications multivitamin no.47-iron fum 27 mg-folate no.1 1 mg-dha 300 mg capsule (PNV-DHA) cap PO 05/26/23 [History Confirmed 09/24/23] Last Menstrual Period: 03/29/23 Zika: Zika virus screening: Negative : No PFSH PFSH Medical History 38 weeks gestation of Alcohol use Anemia affecting Back pain Dizziness False labor Migraine headache Non-smoker Spontaneous rupture of membranes Vaginal delivery Wears glasses Surgical History H/O dilation and curettage Hx of myringotomy Hx of wisdom tooth extraction Family History Other Hx of wisdom tooth extraction Social History adopted: No household members: family housing: house number of children: 1 current occupational status: employed 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 Date Name GA/Weeks Outcome Route Bth Weight Infant Gen Labor Lgth Anesthesia Del Locatn Provider FOB 04/13/21 6 spontaneous 03/29/22 Angie 40 live - full term 7#14 Female [facility] Chapin Castro HPI 30 WK OB Details: PETE STEWART is a 28 year old who presents for routine OB visit. OB Visit ZELALEM Calculator Estimated Delivery Date Method Current WG Current Estimate 12/04/23 Ultrasound #1 29w 6d Other Estimates 01/03/24 LMP (Uncertain) 25w 4d Expected Delivery Route/Plan Labor Preferences- CB/BF classes: no labor support person: Matthew labor intervention preferences: pain management options preferred: epidural cut cord/dad catch: yes : yes PP control planned: Discussed discussed possible routes of delivery and associated risks: [] special requests: [] Specific Issue/Plans Covid status: [] Flu vaccine: declines Tdap vaccine: [] Rhogam: NA LARC form signed: yes Problem list reviewed and updated with the most current plan of care details and appropriate orders placed. Relevant counseling for the gestational age provided. Continue routine care and follow up unless otherwise noted in visit notes/problem list details Initial Weight: 117 lb Date -???-???-???-???-?? ?-???-???-???-???-? ??-???-???- EGA Weight BP Urine Prot -???-???-???-???-?? ?-???-???-???-???-? ??-???-???- Glucose FHR FuHt Pres Dilation -???-???-???-???-?? ?-???-???-???-???-? ??-???-???- Effaced St Visit Note 05/26/23 -???-???-???-???-?? ?-???-???-???-???-? ??-???-???- 12w 4d 117 lb (+0 oz) 101/67 -???-???-???-???-?? ?-???-???-???-???-? ??-???-???- 157 -???-???-???-???-?? ?-???-???-???-???-? ??-???-???- LC CRL not c w LMP. ZELALEM changed to 12/04/2023. HC/AC/FL =12w4d. discussed and declines nipt. anatomy scan with [facility] due to insurance cost. 07/01/23 -???-???-???-???-?? ?-???-???-???-???-? ??-???-???- 17w 5d 121 lb 8 oz (+4 lb 8 oz) 102/67 Negative -???-???-???-???-?? ?-???-???-???-???-? ??-???-???- Negative -???-???-???-???-?? ?-???-???-???-???-? 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 FHT with handheld US KW-no vb/cramping. T with handhe ld US. to call to schedule anatomy US 07/28/23 -???-???-???-???-?? ?-???-???-???-???-? ??-???-???- 21w 4d 133 lb 8 oz (+16 lb 8 oz) 102/65 Negative -???-???-???-???-?? ?-???-???-???-???-? ??-???-???- Negative 142 -???-???-???-???-?? ?-???-???-???-???-? ??-???-???- LC- no vb/c (more content not included)... Normal [facility] - Chemistry and C hemistry - challengeon 09-10-2023 Glucose Ql (U) Negative [facility] - Urinalysison Protein Ql (U) Negative [facility] Literature Teacher Office Visit Reporton 09-10-2023 Literature Teacher Office Visit Report [facility] [address] [place] [address] [address] [place] [address] OFFICE VISIT Date of Service: 09/10/23 MR#: [id number] Acct: [id number] Name: PETE STEWART Rep #: [id number] : 1995 Provider: FUNMI moulton Age/Sex: 28/F [place] [facility]: Signed Intake Vital Signs 08/27/23 12:06 09/10/23 09:04 Height 5 ft 3 in 5 ft 3 in Weight: 141 lb 8 oz BMI 25.0 BP 108/64 Intake Visit Reasons: 28 WK OB, GLUCOSE YESTERDAY Chief Complaint: 28 Week OB [employer] Required: No Is patient in pain?: No Allergies No Known Allergies Allergy (Verified 09/10/23 09:04) Medications multivitamin no.47-iron fum 27 mg-folate no.1 1 mg-dha 300 mg capsule (PNV-DHA) cap PO 05/26/23 [History Confirmed 09/10/23] Last Menstrual Period: 03/29/23 Zika: Zika virus screening: Negative : No PFSH PFSH Medical History 38 weeks gestation of Alcohol use Anemia affecting Back pain Dizziness False labor Migraine headache Non-smoker Spontaneous rupture of membranes Vaginal delivery Wears glasses Surgical History H/O dilation and curettage Hx of myringotomy Hx of wisdom tooth extraction Family History Other Hx of wisdom tooth extraction Social History adopted: No household members: family housing: house number of children: 1 current occupational status: employed 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 Date Name GA/Weeks Outcome Route Bth Weight Infant Gen Labor Lgth Anesthesia Del Kitty Provider FOB 04/13/21 6 spontaneous 03/29/22 Angie 40 live - full term 7#14 Female [facility] Chapin Ruby Matthew HPI 28 WK OB, GLUCOSE YESTERDAY Details: PETE STEWART is a 28 year old who presents for routine OB visit. OB Visit ZELALEM Calculator Estimated Delivery Date Method Current WG Current Estimate 12/04/23 Ultrasound #1 27w 6d Other Estimates 01/03/24 LMP (Uncertain) 23w 4d Expected Delivery Route/Plan Labor Preferences- CB/BF classes: no labor support person: Matthew labor intervention preferences: pain management options preferred: epidural cut cord/dad catch: yes : yes PP control planned: Discussed discussed possible routes of delivery and associated risks: [] special requests: [] Specific Issue/Plans Covid status: [] Flu vaccine: declines Tdap vaccine: [] Rhogam: NA LARC form signed: yes Problem list reviewed and updated with the most current plan of care details and appropriate orders placed. Relevant counseling for the gestational age provided. Continue routine care and follow up unless otherwise noted in visit notes/problem list details Initial Weight: 117 lb Date -???-???-???-???-?? ?-???-???-???-???-? ??-???-???- EGA Weight BP Urine Prot -???-???-???-???-?? ?-???-???-???-???-? ??-???-???- Glucose FHR FuHt Pres Dilation -???-???-???-???-?? ?-???-???-???-???-? ??-???-???- Effaced St Visit Note 05/26/23 -???-???-???-???-?? ?-???-???-???-???-? ??-???-???- 12w 4d 117 lb (+0 oz) 101/67 -???-???-???-???-?? ?-???-???-???-???-? ??-???-???- 157 -???-???-???-???-?? ?-???-???-???-???-? ??-???-???- LC CRL not c w LMP. ZELALEM changed to 12/04/2023. HC/AC/FL =12w4d. discussed and declines nipt. anatomy scan with [facility] due to insurance cost. 07/01/23 -???-???-???-???-?? ?-???-???-???-???-? ??-???-???- 17w 5d 121 lb 8 oz (+4 lb 8 oz) 102/67 Negative -???-???-???-???-?? ?-???-???-???-???-? ??-???-???- Negative -???-???-???-???-?? ?-???-???-???-???-? 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 FHT with handheld US KW-no vb/cramping. T with handhe ld US. to call to schedule anatomy US 07/28/23 -???-???-???-???-?? ?-???-???-???-???-? ??-???-???- 21w 4d 133 lb 8 oz (+16 lb 8 oz) 102/65 Negative -???-???-???-???-?? ?-???-???-???-???-? ??-???-???- Negative 142 -???-???-???-???-?? ?-???-? (more content not included)... Normal [facility] Absolute lymphocyte countOrd ered By: Marilu Ballesteros on 09-09-2023 Lymphocytes Auto (Unsp spec) [#/Vol] 1.56 10*3/uL 0.83-4.51 [facility] Basophil percentageOrdered B y: Marilu Ballesteros on 09-09-2023 Basophils/100 WBC (Bld) 0.2 % 0-1 [facility] Eosinophils/100 WBC (Bld) 1.1 % 0-5 [facility] Neutrophils (Bld) [#/Vol] 5.9 10*3/uL 2.0-7.7 [facility] Neutrophils/100 WBC (Bld) 73.0 % 47-70 [facility] WBC (Bld) [#/Vol] 8.0 10*3/uL 4.4-11.0 [facility] Blood erythrocytes count (nu mber/volume)Ordered By: Marilu Ballesteros on 09-09-2023 RBC (Bld) [#/Vol] 3.88 10*6/uL 4.2-5.4 [facility] Blood hemoglobin measurement (mass/volume)Ordered By: Marilu Ballesteros on 09-09-2023 Hemoglobin (Bld) [Mass/Vol] 10.5 g/dL 12.0-15.0 [facility] Blood lymphocytes/100 leukoc ytesOrdered By: Marilu Ballesteros on 09-09-2023 Lymphocytes/100 WBC (Bld) 19.4 % 19-41 [facility] Blood monocytes/100 leukocyt esOrdered By: Marilu Ballesteros on 09-09-2023 Monocytes/100 WBC (Bld) 5.3 % 0-10 [facility] Blood platelet mean volumeOr dered By: Marilu Ballesteros on 09-09-2023 Platelet mean volume (Bld) [Entitic vol] 11.2 fL 6.2-12.0 [facility] CBC W/Diff, Automatedon Absolute Lymph 1.56 X10 3/uL Normal 0.83-4.51 [facility] Comment on above: Performed By: #### L 100.0100, L501.0250, L3890.6005, L509.8000 #### [facility] [address] [place], [address] Absolute Neut 5.9 X10 3/uL Normal 2.0-7.7 [facility] Comment on above: Performed By: #### L 100.0100, L501.0250, L3890.6005, L509.8000 #### [facility] [address] [place], [address] Basophils/100 WBC (Bld) 0.2 % Normal 0-1 [facility] Comment on above: Performed By: #### L 100.0100, L501.0250, L3890.6005, L509.8000 #### [facility] [address] [place], [address] Eosinophils/100 WBC (Bld) 1.1 % Normal 0-5 [facility] Comment on above: Performed By: #### L 100.0100, L501.0250, L3890.6005, L509.8000 #### [facility] [address] [place], [address] Erythrocyte distribution width (RBC) [Ratio] 13.3 % Normal 11.6-14.6 [facility] Comment on above: Performed By: #### L 100.0100, L501.0250, L3890.6005, L509.8000 #### [facility] [address] [place], [address] Hematocrit (Bld) [Volume fraction] 33.7 % Low 37-47 [facility] Comment on above: Performed By: #### L 100.0100, L501.0250, L3890.6005, L509.8000 #### [facility] [address] [place], [address] Hemoglobin (Bld) [Mass/Vol] 10.5 g/dL Low 12.0-15.0 [facility] Comment on above: Performed By: #### L 100.0100, L501.0250, L3890.6005, L509.8000 #### [facility] [address] [place], [address] IG% 1.000 High 0.0-0.9 [facility] Comment on above: Result Comment: IG% - Immature Granulocytes (promyelocytes, myelocytes and metamyelocytes) > 1% indicates that a LEFT SHIFT is Present. Performed By: #### L 100.0100, L501.0250, L3890.6005, L509.8000 #### [facility] [address] [place], [address] Lymphocytes/100 WBC (Bld) 19.4 % Normal 19-41 [facility] Comment on above: Performed By: #### L 100.0100, L501.0250, L3890.6005, L509.8000 #### [facility] [address] [place], [address] MCH (RBC) [Entitic mass] 27.1 pg Normal 27.0-32.0 [facility] Comment on above: Performed By: #### L 100.0100, L501.0250, L3890.6005, L509.8000 #### [facility] [address] [place], [address] MCHC (RBC) [Mass/Vol] 31.2 g/dL Low 32-36 [facility] Comment on above: Performed By: #### L 100.0100, L501.0250, L3890.6005, L509.8000 #### [facility] [address] [place], [address] MCV (RBC) [Entitic vol] 86.9 fL Normal 81-99 [facility] Comment on above: Performed By: #### L 100.0100, L501.0250, L3890.6005, L509.8000 #### [facility] [address] [place], [address] Monocytes/100 WBC (Bld) 5.3 % Normal 0-10 [facility] Comment on above: Performed By: #### L 100.0100, L501.0250, L3890.6005, L509.8000 #### [facility] [address] [place], [address] Neutrophils/100 WBC (Bld) 73.0 % High 47-70 [facility] Comment on above: Performed By: #### L 100.0100, L501.0250, L3890.6005, L509.8000 #### [facility] [address] [place], [address] Nucleated RBC (Bld) [#/Vol] 0 10*3/uL Normal 0-5 [facility] Comment on above: Performed By: #### L 100.0100, L501.0250, L3890.6005, L509.8000 #### [facility] [address] [place], [address] Platelet mean volume (Bld) [Entitic vol] 11.2 fL Normal 6.2-12.0 [facility] Comment on above: Performed By: #### L 100.0100, L501.0250, L3890.6005, L509.8000 #### [facility] [address] [place], [address] Platelets (Bld) [#/Vol] 160 10*3/uL Normal 150-450 [facility] Comment on above: Performed By: #### L 100.0100, L501.0250, L3890.6005, L509.8000 #### [facility] [address] [place], [address] RBC (Bld) [#/Vol] 3.88 10*6/uL Low 4.2-5.4 [facility] Comment on above: Performed By: #### L 100.0100, L501.0250, L3890.6005, L509.8000 #### [facility] [address] [place], [address] RDW SD 41.4 fl Normal 35.1-43.9 [facility] Comment on above: Performed By: #### L 100.0100, L501.0250, L3890.6005, L509.8000 #### [facility] [address] [place], [address] WBC (Bld) [#/Vol] 8.0 10*3/uL Normal 4.4-11.0 [facility] Comment on above: Performed By: #### L 100.0100, L501.0250, L3890.6005, L509.8000 #### [facility] [address] [place], [address] Determination of erythrocyte mean corpuscular volume (MCV)Ordered By: Marilu Ballesteros on 09-09-2023 MCV (RBC) [Entitic vol] 86.9 fL 81-99 [facility] Gestational diabetes screen 1-hour screen with 50g oral glucose loadOrdered By: Marilu Ballesteros on 09-09-2023 Glucose 1 Hr post 50 g glucose PO [Mass/Vol] 138 mg/dL 70-140 [facility] Glucose Challenge Gest 1H 50 tu 09-09-2023 GLU GEST 50g 1H 138 mg/dL Normal 70-140 [facility] Comment on above: Performed By: #### L 100.0100, L501.0250, L3890.6005, L509.8000 #### [facility] [address] [place], [address] HIV - WCHon 09-09-2023 HIV Non-Reactive Normal Nonreactive [facility] Comment on above: Performed By: #### L 100.0100, L501.0250, L3890.6005, L509.8000 ####[facility] [id number] [facility] [place], [place], [id number] HIV 1 and HIV-2 antibody ass ay with HIV-1 p24 antigen detectionOrdered By: Marilu Ballesteros on 09-09-2023 HIV 1+2 Ab+HIV1 p24 Ag IA Ql Non-Reactive Nonreactive [facility] Hematocrit Auto (Bld) [Volum e fraction]Ordered By: Marilu Ballesteros on 09-09-2023 Hematocrit (Bld) [Volume fraction] 33.7 % 37-47 [facility] L509.8000on 09-09-2023 Syphilis Abs Non-Reactive Normal [facility] Comment on above: Performed By: #### L 100.0100, L501.0250, L3890.6005, L509.8000 #### [facility] [address] [facility] [place], [place], [id number] Laboratory - Hematology and Cell countsOrdered By: Marilu Ballesteros on 09-09-2023 Erythrocyte distribution width (RBC) [Entitic vol] 41.4 fL 35.1-43.9 [facility] Erythrocyte distribution width (RBC) [Ratio] 13.3 % 11.6-14.6 [facility] Immature granulocytes/100 WBC (Bld) 1.000 % 0.0-0.9 [facility] Comment on above: IG% - Immature Granu locytes (promyelocytes, myelocytes and metamyelocytes) > 1% indicates that a LEFT SHIFT is Present. MCH (RBC) [Entitic mass] 27.1 pg 27.0-32.0 [facility] Nucleated RBC/100 WBC (Bld) [Ratio] 0 % 0-5 [facility] MCHC Auto (RBC) [Mass/Vol]Or dered By: Marilu Ballesteros on 09-09-2023 MCHC (RBC) [Mass/Vol] 31.2 g/dL 32-36 [facility] Platelets bldOrdered By: Alia Ballesteros on 09-09-2023 Platelets (Bld) [#/Vol] 160 10*3/uL 150-450 [facility] Serum Treponema species anti body detectionOrdered By: Marilu Ballesteros on 09-09-2023 Treponema sp Ab Ql (S) Non-Reactive [facility] - Chemistry and C hemistry - challengeon 08-27-2023 Glucose Ql (U) Negative [facility] - Urinalysison Protein Ql (U) Negative [facility] Literature Teacher Office Visit Reporton 08-27-2023 Literature Teacher Office Visit Report [facility] [address] [place] [address] OFFICE VISIT Date of Service: 08/27/23 MR#: [id number] Acct: [id number] Name: PETE STEWART Rep #: [id number] : 1995 Provider: CAMDEN uriostegui Age/Sex: 27/F [place] [facility]: Signed Intake Vital Signs 07/28/23 09:55 08/27/23 12:06 Height 5 ft 3 in 5 ft 3 in Weight: 138 lb 8 oz BMI 24.5 BP 100/62 Intake Visit Reasons: 25 WK OB Chief Complaint: 25 Week OB [employer] Required: No Is patient in pain?: No Allergies No Known Allergies Allergy (Verified 08/27/23 12:05) Medications multivitamin no.47-iron fum 27 mg-folate no.1 1 mg-dha 300 mg capsule (PNV-DHA) cap PO 05/26/23 [History Confirmed 08/27/23] Last Menstrual Period: 03/29/23 Zika: Zika virus screening: Negative : No PFSH PFSH Medical History 38 weeks gestation of Alcohol use Anemia affecting Back pain Dizziness False labor Migraine headache Non-smoker Spontaneous rupture of membranes Vaginal delivery Wears glasses Surgical History H/O dilation and curettage Hx of myringotomy Hx of wisdom tooth extraction Family History Other Hx of wisdom tooth extraction Social History adopted: No household members: family housing: house number of children: 1 current occupational status: employed 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 Date Name GA/Weeks Outcome Route Bth Weight Infant Gen Labor Lgth Anesthesia Del Locatn Provider FOB 04/13/21 6 spontaneous 03/29/22 Angie 40 live - full term 7#14 Female [facility] Chapin Castro HPI 25 WK OB Details: PETE STEWART is a 27 year old who presents for routine OB visit. OB Visit ZELALEM Calculator Estimated Delivery Date Method Current WG Current Estimate 12/04/23 Ultrasound #1 25w 6d Other Estimates 01/03/24 LMP (Uncertain) 21w 4d Expected Delivery Route/Plan Labor Preferences- CB/BF classes: [] labor support person: [] labor intervention preferences: [] pain management options preferred: [] cut cord/dad catch: [] : [] PP control planned: [] discussed possible routes of delivery and associated risks: [] special requests: [] Specific Issue/Plans Covid status: [] Flu vaccine: [] Tdap vaccine: [] Rhogam: [] LARC form signed: [] Problem list reviewed and updated with the most current plan of care details and appropriate orders placed. Relevant counseling for the gestational age provided. Continue routine care and follow up unless otherwise noted in visit notes/problem list details Initial Weight: 117 lb Date -???-???-???-???-?? ?-???-???-???-???-? ??-???-???- EGA Weight BP Urine Prot -???-???-???-???-?? ?-???-???-???-???-? ??-???-???- Glucose FHR FuHt Pres Dilation -???-???-???-???-?? ?-???-???-???-???-? ??-???-???- Effaced St Visit Note 05/26/23 -???-???-???-???-?? ?-???-???-???-???-? ??-???-???- 12w 4d 117 lb (+0 oz) 101/ -???-???-???-???-?? ?-???-???-???-???-? ??-???-???- 157 -???-???-???-???-?? ?-???-???-???-???-? ??-???-???- LC CRL not c w LMP. ZELALEM changed to 12/04/2023. HC/AC/FL =12w4d. discussed and declines nipt. anatomy scan with [facility] due to insurance cost. 07/01/23 -???-???-???-???-?? ?-???-???-???-???-? ??-???-???- 17w 5d 121 lb 8 oz (+4 lb 8 oz) 102/67 Negative -???-???-???-???-?? ?-???-???-???-???-? ??-???-???- Negative -???-???-???-???-?? ?-???-???-???-???-? 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 FHT with handheld US KW-no vb/cramping. FHT with handhe ld US. to call to schedule anatomy US 07/28/23 -???-???-???-???-?? ?-???-???-???-???-? ??-???-???- 21w 4d 133 lb 8 oz (+16 lb 8 oz) 102/65 Negative -???-???-???-???-?? ?-???-???-???-???-? ??-???-???- Negative 142 -???-???-???-???-?? ?-???-???-???-???-? ??-???-???- LC- no vb/cr amping. normal alexus (more content not included)... Normal [facility] - Chemistry and C hemistry - challengeon 07-28-2023 Glucose Ql (U) Negative [facility] - Urinalysison Protein Ql (U) Negative [facility] Literature Teacher Office Visit Reporton 07-28-2023 Literature Teacher Office Visit Report [facility] [address] [place] [address] OFFICE VISIT Date of Service: 07/28/23 MR#: [id number] Acct: [id number] Name: PETE STEWART Rep #: [id number] : 1995 Provider: CAMDEN uriostegui Age/Sex: 27/F [place] [facility] [place]: Signed Intake Vital Signs 07/01/23 14:33 07/28/23 09:54 07/28/23 09:55 Height 5 ft 3 in 5 ft 3 in 5 ft 3 in Weight: 133 lb 8 oz BMI 23.6 BP 102/65 Intake Visit Reasons: 22 WK OB [employer] Required: No Is patient in pain?: No Allergies No Known Allergies Allergy (Verified 07/28/23 09:54) Medications multivitamin no.47-iron fum 27 mg-folate no.1 1 mg-dha 300 mg capsule (PNV-DHA) cap PO 05/26/23 [History Confirmed 07/28/23] Last Menstrual Period: 03/29/23 Zika: Zika virus screening: Negative : No PFSH PFSH Medical History (Updated 07/28/23 @ 09:55 by Leslie Man MA) 38 weeks gestation of Alcohol use Anemia affecting Back pain Dizziness False labor Migraine headache Non-smoker Spontaneous rupture of membranes Vaginal delivery Wears glasses Surgical History H/O dilation and curettage Hx of myringotomy Hx of wisdom tooth extraction Family History (Updated 05/26/23 @ 10:26 by Leslie Man MA) Other Hx of wisdom tooth extraction Social History (Updated 05/26/23 @ 10:28 by Leslie Man MA) adopted: No household members: family housing: house number of children: 1 current occupational status: employed 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 Date Name GA/Weeks Outcome Route Bth Weight Infant Gen Labor Lgth Anesthesia Del Locatn Provider FOB 04/13/21 6 spontaneous 03/29/22 Angie 40 live - full term 7#14 Female [facility] Chapin Castro HPI 22 WK OB Details: PETE STEWART is a 27 year old who presents for routine OB visit. OB Visit ZELALEM Calculator Estimated Delivery Date Method Current WG Current Estimate 12/04/23 Ultrasound #1 21w 4d Other Estimates 01/03/24 LMP (Uncertain) 17w 2d Expected Delivery Route/Plan Labor Preferences- CB/BF classes: [] labor support person: [] labor intervention preferences: [] pain management options preferred: [] cut cord/dad catch: [] : [] PP control planned: [] discussed possible routes of delivery and associated risks: [] special requests: [] Specific Issue/Plans Covid status: [] Flu vaccine: [] Tdap vaccine: [] Rhogam: [] LARC form signed: [] Problem list reviewed and updated with the most current plan of care details and appropriate orders placed. Relevant counseling for the gestational age provided. Continue routine care and follow up unless otherwise noted in visit notes/problem list details Initial Weight: 117 lb Date -???-???-???-???-?? ?-???-???-???-???-? ??-???-???- EGA Weight BP Urine Prot -???-???-???-???-?? ?-???-???-???-???-? ??-???-???- Glucose FHR FuHt Pres Dilation -???-???-???-???-?? ?-???-???-???-???-? ??-???-???- Effaced St Visit Note 05/26/23 -???-???-???-???-?? ?-???-???-???-???-? ??-???-???- 12w 4d 117 lb (+0 oz) 101/67 -???-???-???-???-?? ?-???-???-???-???-? ??-???-???- 157 -???-???-???-???-?? ?-???-???-???-???-? ??-???-???- LC CRL not c w LMP. ZELALEM changed to 12/04/2023. HC/AC/FL =12w4d. discussed and declines nipt. anatomy scan with [facility] due to insurance cost. 07/01/23 -???-???-???-???-?? ?-???-???-???-???-? ??-???-???- 17w 5d 121 lb 8 oz (+4 lb 8 oz) 102/67 Negative -???-???-???-???-?? ?-???-???-???-???-? ??-???-???- Negative -???-???-???-???-?? ?-???-???-???-???-? 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 FHT with handheld US KW-no vb/cramping. FHT with handhe ld US. to call to schedule anatomy US 07/28/23 -???-???-???-???-?? ?-???-???-???-???-? ??-???-???- 21w 4d 133 lb 8 oz (+16 lb 8 oz) 102/65 -???-???-???-???-?? ?-???-???-???-???-? ??-???-???- 142 -???-???-???-???-?? ?-???-???-???-???-? ??-???-???- LC- no vb/cr amping. normal anatomy scan. no concerns. (more content not included)... Normal [facility] OB Anatomy w/ Transvaginalon 07-15-2023 OB Anatomy w/ Transvaginal [facility] Services [address] [place] [address] OB Anatomy w/ Transvaginal MR#: [id number] Acct: [id number] Name: PETE STEWART Rep #: [id number] : 1995 F 27 From: Jose Lopez MD PCP: Care Physician,No Primary Status: REG CLI Study: OB Anatomy w/ Transvaginal Date of Exam: 07/15 Exam# [id number] Ordering Dr: Emily Johnson [facility] [phone] STUDY: SECOND AND THIRD TRIMESTER OBSTETRICAL ULTRASOUND REASON FOR EXAM: Female, 27 years old anatomy scan LMP: 02/27/2023 TECHNIQUE: Transabdominal TECHNICAL QUALITY: Adequate. PRIOR ULTRASOUND: None. FINDINGS: There is a single intrauterine fetus. The fetus is in a breech presentation. There is demonstrated cardiac activity with a heart rate of 143 bpm. There is a normal amniotic fluid volume. The largest amniotic fluid pocket measures 6.9 cm. The amniotic fluid index (NOEL) is cm. The placenta is anterior in location and is not low lying. There are Grade 0 placental changes. There is a prominent venous rasheed within the placenta. The cervix measures 3.0 cm in length. The bilateral adnexal regions are normal. BIOMETRY: BPD: 4.4 cm: 19 weeks, 3 days HC: 17.0 cm: 19 weeks, 4 days AC: 14.9 cm: 20 weeks, 1 days FL: 3.1 cm: 19 weeks, 4 days CI: 79.38 FL/BPD: 69.60 FL/HC: 18.24 FL/AC: 20.78 HC/AC: 1.14 age by current US: 19 weeks, 1 days. ZELALEM by current US: 12/08/2023. Estimated weight: 317 grams, +/- 48 grams, 52 %. age by prior US: weeks, days. ZELALEM by prior US: . Age by LMP: 19 weeks, 5 days. ZELALEM by LMP: 12/04/2023. ANATOMY: Gender: Female Cranium: Normal lateral ventricles. Normal choroid plexus. Normal cerebellum. Normal cisterna magna. Normal face, nose and lips. Chest: Normal 4-chamber heart. Abdomen/Pelvis: Normal diaphragm. Normal stomach. Normal abdominal wall. Normal cord insertion. Normal 3 vessel cord. Normal kidneys. Normal bladder. Spine: Normal cervical spine. Normal thoracic spine. Normal lumbar spine. Normal sacrum. Extremities: Normal bilateral upper extremities. Normal bilateral lower extremities. US/OB Anatomy w/ Transvaginal IMPRESSION: Living intrauterine of 19 weeks 1 day as described above. Electronically Signed: Jose Lopez MD at 18:11 EST Reading Location ID and State: [id number] / [employer] Tel , Service support , [phone] Refer to OB ultrasound. Electronically Signed: Jose Lopez MD at 18:11 EST Reading Location ID and State: [id number] / [employer] Tel , Service support , CC: CAMDEN Johnson; No Primary Care Physician Central Control Room Operator: Signed Normal [facility] - Chemistry and C hemistry - challengeon 07-01-2023 Glucose Ql (U) Negative [facility] - Urinalysison Protein Ql (U) Negative [facility] Literature Teacher Office Visit Reporton 07-01-2023 Literature Teacher Office Visit Report [facility] 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 Required: No Is patient in pain?: No Allergies No Known Allergies Allergy (Verified 07/01/23 14:33) Medications multivitamin no.47-iron fum 27 mg-folate no.1 1 mg-dha 300 mg capsule (PNV-DHA) cap PO 05/26/23 [History Confirmed 07/01/23] Last Menstrual Period: 03/29/23 Zika: Zika virus screening: Negative : No PFSH PFSH Medical History (Updated 07/01/23 @ 14:33 by Leslie Man MA) 38 weeks gestation of Alcohol use Anemia affecting Back pain Dizziness False labor Migraine headache Non-smoker Spontaneous rupture of membranes Vaginal delivery Wears glasses Surgical History H/O dilation and curettage Hx of myringotomy Hx of wisdom tooth extraction Family History (Updated 05/26/23 @ 10:26 by Leslie Man MA) Other Hx of wisdom tooth extraction Social History (Updated 05/26/23 @ 10:28 by Leslie Man MA) adopted: No household members: family housing: house number of children: 1 current occupational status: employed 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 Date Name GA/Weeks Outcome Route Bth Weight Infant Gen Labor Lgth Anesthesia Del Locatn Provider FOB 04/13/21 6 spontaneous 03/29/22 Angie 40 live - full term 7#14 Female [facility] Chapin Castro HPI 16 WK OB Details: PETE STEWART is a 27 year old who presents for routine OB visit. OB Visit ZELALEM Calculator Estimated Delivery Date Method Current WG Current Estimate 04/04/24 Ultrasound #1 17w 5d Other Estimates 01/03/24 LMP (Uncertain) 13w 3d Expected Delivery Route/Plan Labor Preferences- CB/BF classes: [] labor support person: [] labor intervention preferences: [] pain management options preferred: [] cut cord/dad catch: [] : [] PP control planned: [] discussed possible routes of delivery and associated risks: [] special requests: [] Specific Issue/Plans Covid status: [] Flu vaccine: [] Tdap vaccine: [] Rhogam: [] LARC form signed: [] Problem list reviewed and updated with the most current plan of care details and appropriate orders placed. Relevant counseling for the gestational age provided. Continue routine care and follow up unless otherwise noted in visit notes/problem list details Initial Weight: 117 lb Date -???-???-???-???-?? ?-???-???-???-???-? ??-???-???- EGA Weight BP Urine Prot -???-???-???-???-?? ?-???-???-???-???-? ??-???-???- Glucose FHR FuHt Pres Dilation -???-???-???-???-?? ?-???-???-???-???-? ??-???-???- Effaced St Visit Note 05/26/23 -???-???-???-???-?? ?-???-???-???-???-? ??-???-???- 12w 4d 117 lb (+0 oz) 101/67 -???-???-???-???-?? ?-???-???-???-???-? ??-???-???- 157 -???-???-???-???-?? ?-???-???-???-???-? ??-???-???- LC CRL not c w LMP. ZELALEM changed to 12/04/2023. HC/AC/FL =12w4d. discussed and declines nipt. anatomy scan with [facility] due to insurance cost. 07/01/23 -???-???-???-???-?? ?-???-???-???-???-? ??-???-???- 17w 5d 121 lb 8 oz (+4 lb 8 oz) 102/67 Negative -???-???-???-???-?? ?-???-???-???-???-? ??-???-???- Negative -???-???-???-???-?? ?-???-???-???-???-? 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 FHT with handheld US KW-no vb/cramping. FHT with handhe ld US. to call to schedule anatomy US ACOG First Trimester First Trimester: Discussed ROS Const Reports system reviewed and no additional complaints, except as documented Resp Reports system reviewed and no additional complaints, except as documented GI Reports system reviewed a (more content not included)... Normal [facility] PAP I-G w/rfx hrHPV-Aptimaon 05-30-2023 ADEQ Comment Normal . [facility] Comment on above: Order Comment: Speci men Comment: [id number] Comment: Source.............CervixSpecimen Comment: Other..............Specimen Comment: No. of containers..01 ThinPrep Vial Result Comment: Sati sfactory for evaluation. Endocervical and/or squamous metaplastic cells (endocervical component) are present. Performed By: #### L 7400.0353, M100.2200, L7000.1800 ####[facility] [address] [place], [address] COMM . Normal . [facility] Comment on above: Order Comment: Speci men Comment: [id number] Comment: Source.............CervixSpecimen Comment: Other..............Specimen Comment: No. of containers..01 ThinPrep Vial Performed By: #### L 7400.0353, M100.2200, L7000.1800 ####[facility] [address] [place], [address] COMMENT Comment Normal . [facility] Comment on above: Order Comment: Speci men Comment: [id number] Comment: Source.............CervixSpecimen Comment: Other..............Specimen Comment: No. of containers..01 ThinPrep Vial Result Comment: This liquid based ThinPrep(R) pap test was screened with the use of an image guided system. Performed By: #### L 7400.0353, M100.2200, L7000.1800 ####[facility] [address] [place], [address] DIAG Comment Normal . [facility] Comment on above: Order Comment: Speci men Comment: [id number] Comment: Source.............CervixSpecimen Comment: Other..............Specimen Comment: No. of containers..01 ThinPrep Vial Result Comment: NEGA TIVE FOR INTRAEPITHELIAL LESION OR MALIGNANCY. CELLULAR CHANGES ASSOCIATED WITH INFLAMMATION ARE PRESENT. THIS SPECIMEN WAS RESCREENED PART OF OUR FACTORER PROGRAM. Performed By: #### L 7400.0353, M100.2200, L7000.1800 ####[facility] [address] [place], [place], [address] HPV RFLX Comment Normal . [facility] Comment on above: Order Comment: Speci men Comment: [id number] Comment: Source.............CervixSpecimen Comment: Other..............Specimen Comment: No. of containers..01 ThinPrep Vial Result Comment: The HPV DNA reflex criteria were not met with this specimen result therefore, no HPV testing was performed. Performed at: [address] [id number] Kettle Chipper: Lisa Ellison MD, Phone: [phone] Performed By: #### L 7400.0353, M100.2200, L7000.1800 ####[facility] [address] [place], [address] PAPSMR Comment Normal . [facility] Comment on above: Order Comment: Speci men Comment: [id number] Comment: Source.............CervixSpecimen Comment: Other..............Specimen Comment: No. of containers..01 ThinPrep Vial Result Comment: The Pap smear is a screening test designed to aid in the detection of premalignant and malignant conditions of the uterine cervix. It is not a diagnostic procedure and should not be used as the sole means of detecting cervical cancer. Both false-positive and false-negative reports do occur. Performed By: #### L 7400.0353, M100.2200, L7000.1800 ####[facility] [address] [place], [address] PERFORM Comment Normal . [facility] Comment on above: Order Comment: Speci men Comment: [id number] Comment: Source.............CervixSpecimen Comment: Other..............Specimen Comment: No. of containers..01 ThinPrep Vial Result Comment: Archana Aggarwal, Radio Program Director (ASCP) Performed By: #### L 7400.0353, M100.2200, L7000.1800 ####[facility] [address] [place], [address] QC REV Comment Normal . [facility] Comment on above: Order Comment: Speci men Comment: [id number] Comment: Source.............CervixSpecimen Comment: Other..............Specimen Comment: No. of containers..01 ThinPrep Vial Result Comment: Portia Glover, Radio Program Director (ASCP) Performed By: #### L 7400.0353, M100.2200, L7000.1800 ####[facility] [address] [place], [address] Chlamydia/GC MAYRA aptimaon CHLAMY,NUC ACID Negative Normal Negative [facility] Comment on above: Performed By: #### L 7400.0353, M100.2200, L7000.1800 ####[facility] [address] [place], [address] GC BY NUC ACID Negative Normal Negative [facility] Comment on above: Result Comment: Perf ormed at: =G - [facility] [address] [id number] Kettle Chipper: Lisa Ellison MD, Phone: [phone] Performed By: #### L 7400.0353, M100.2200, L7000.1800 ####[facility] [address] [place], [address] Urine Cultureon 05-27-2023 URC Culture exhibits no growth. Normal [facility] Comment on above: Performed By: #### L 7400.0353, M100.2200, L7000.1800 ####[facility] [address] [place], [address] Absolute lymphocyte countOrd ered By: Emily Johnson on 05-26-2023 Lymphocytes Auto (Unsp spec) [#/Vol] 1.37 10*3/uL 0.83-4.51 [facility] Basophil percentageOrdered B y: Emily Johnson on 05-26-2023 Basophils/100 WBC (Bld) 0.3 % 0-1 [facility] Eosinophils/100 WBC (Bld) 1.4 % 0-5 [facility] Neutrophils (Bld) [#/Vol] 4.4 10*3/uL 2.0-7.7 [facility] Neutrophils/100 WBC (Bld) 70.2 % 47-70 [facility] WBC (Bld) [#/Vol] 6.2 10*3/uL 4.4-11.0 [facility] Blood erythrocytes count (nu mber/volume)Ordered By: Emily Johnson on 05-26-2023 RBC (Bld) [#/Vol] 4.51 10*6/uL 4.2-5.4 [facility] Blood hemoglobin measurement (mass/volume)Ordered By: Emily Johnson on 05-26-2023 Hemoglobin (Bld) [Mass/Vol] 12.5 g/dL 12.0-15.0 [facility] Blood lymphocytes/100 leukoc ytesOrdered By: Emily Johnson on 05-26-2023 Lymphocytes/100 WBC (Bld) 22.0 % 19-41 [facility] Blood monocytes/100 leukocyt esOrdered By: Emily Johnson on 05-26-2023 Monocytes/100 WBC (Bld) 5.6 % 0-10 [facility] Blood platelet mean volumeOr dered By: Emily Johnson on 05-26-2023 Platelet mean volume (Bld) [Entitic vol] 11.2 fL 6.2-12.0 [facility] CBC W/Diff, Automatedon 05-03 Absolute Lymph 1.37 X10 3/uL Normal 0.83-4.51 [facility] Comment on above: Performed By: #### L 100.0100, BTS, L3890.6300, L3890.6100, L3890.6005, L509.8000, L509.4005 ####[facility] [address] [place], [address] Absolute Neut 4.4 X10 3/uL Normal 2.0-7.7 [facility] Comment on above: Performed By: #### L 100.0100, BTS, L3890.6300, L3890.6100, L3890.6005, L509.8000, L509.4005 ####[facility] [address] [place], [address] Basophils/100 WBC (Bld) 0.3 % Normal 0-1 [facility] Comment on above: Performed By: #### L 100.0100, BTS, L3890.6300, L3890.6100, L3890.6005, L509.8000, L509.4005 ####[facility] [address] [place], [address] Eosinophils/100 WBC (Bld) 1.4 % Normal 0-5 [facility] Comment on above: Performed By: #### L 100.0100, BTS, L3890.6300, L3890.6100, L3890.6005, L509.8000, L509.4005 ####[facility] [address] [place], [address] Erythrocyte distribution width (RBC) [Ratio] 14.9 % High 11.6-14.6 [facility] Comment on above: Performed By: #### L 100.0100, BTS, L3890.6300, L3890.6100, L3890.6005, L509.8000, L509.4005 ####[facility] [address] [place], [address] Hematocrit (Bld) [Volume fraction] 38.7 % Normal 37-47 [facility] Comment on above: Performed By: #### L 100.0100, BTS, L3890.6300, L3890.6100, L3890.6005, L509.8000, L509.4005 ####[facility] [address] [place], [address] Hemoglobin (Bld) [Mass/Vol] 12.5 g/dL Normal 12.0-15.0 [facility] Comment on above: Performed By: #### L 100.0100, BTS, L3890.6300, L3890.6100, L3890.6005, L509.8000, L509.4005 ####[facility] [address] [place], [address] IG% 0.500 Normal 0.0-0.9 [facility] Comment on above: Result Comment: IG% - Immature Granulocytes (promyelocytes, myelocytes and metamyelocytes) > 1% indicates that a LEFT SHIFT is Present. Performed By: #### L 100.0100, BTS, L3890.6300, L3890.6100, L3890.6005, L509.8000, L509.4005 ####[facility] [address] [place], [address] Lymphocytes/100 WBC (Bld) 22.0 % Normal 19-41 [facility] Comment on above: Performed By: #### L 100.0100, BTS, L3890.6300, L3890.6100, L3890.6005, L509.8000, L509.4005 ####[facility] [address] [place], [address] MCH (RBC) [Entitic mass] 27.7 pg Normal 27.0-32.0 [facility] Comment on above: Performed By: #### L 100.0100, BTS, L3890.6300, L3890.6100, L3890.6005, L509.8000, L509.4005 ####[facility] [address] [place], [address] MCHC (RBC) [Mass/Vol] 32.3 g/dL Normal 32-36 [facility] Comment on above: Performed By: #### L 100.0100, BTS, L3890.6300, L3890.6100, L3890.6005, L509.8000, L509.4005 ####[facility] [address] [place], [address] MCV (RBC) [Entitic vol] 85.8 fL Normal 81-99 [facility] Comment on above: Performed By: #### L 100.0100, BTS, L3890.6300, L3890.6100, L3890.6005, L509.8000, L509.4005 ####[facility] [address] [place], [address] Monocytes/100 WBC (Bld) 5.6 % Normal 0-10 [facility] Comment on above: Performed By: #### L 100.0100, BTS, L3890.6300, L3890.6100, L3890.6005, L509.8000, L509.4005 ####[facility] [address] [place], [address] Neutrophils/100 WBC (Bld) 70.2 % High 47-70 [facility] Comment on above: Performed By: #### L 100.0100, BTS, L3890.6300, L3890.6100, L3890.6005, L509.8000, L509.4005 ####[facility] [address] [place], [address] Nucleated RBC (Bld) [#/Vol] 0 10*3/uL Normal 0-5 [facility] Comment on above: Performed By: #### L 100.0100, BTS, L3890.6300, L3890.6100, L3890.6005, L509.8000, L509.4005 ####[facility] [address] [place], [address] Platelet mean volume (Bld) [Entitic vol] 11.2 fL Normal 6.2-12.0 [facility] Comment on above: Performed By: #### L 100.0100, BTS, L3890.6300, L3890.6100, L3890.6005, L509.8000, L509.4005 ####[facility] [address] [place], [address] Platelets (Bld) [#/Vol] 165 10*3/uL Normal 150-450 [facility] Comment on above: Performed By: #### L 100.0100, BTS, L3890.6300, L3890.6100, L3890.6005, L509.8000, L509.4005 ####[facility] [address] [place], [address] RBC (Bld) [#/Vol] 4.51 10*6/uL Normal 4.2-5.4 [facility] Comment on above: Performed By: #### L 100.0100, BTS, L3890.6300, L3890.6100, L3890.6005, L509.8000, L509.4005 ####[facility] [address] [place], [address] RDW SD 46.5 fl High 35.1-43.9 [facility] Comment on above: Performed By: #### L 100.0100, BTS, L3890.6300, L3890.6100, L3890.6005, L509.8000, L509.4005 ####[facility] [address] [place], [address] WBC (Bld) [#/Vol] 6.2 10*3/uL Normal 4.4-11.0 [facility] Comment on above: Performed By: #### L 100.0100, BTS, L3890.6300, L3890.6100, L3890.6005, L509.8000, L509.4005 ####[facility] [address] [place], [address] Cervical or vagninal specime n microscopic examination by cytology stain (reported asOrdered By: Emily Johnson on 05-26-2023 Cytology report Cyto stain Doc (Cvx/Vag) Comment . [facility] Comment on above: The Pap smear is a s creening test designed to aid in thedetection of premalignant and malignant conditions of theuterine cervix. It is not a diagnostic procedure andshould not be used as the sole means of detecting cervicalcancer. Both false-positive and false-negative reports dooccur. Chlamydia trachomatis rRNA d etection by probe and target amplification methodOrdered By: Emily Johnson on 05-26-2023 C. trachomatis rRNA MAYRA+probe Ql (Unsp spec) Negative Negative [facility] Culture, urineOrdered By: Destini Johnson on 05-26-2023 Bacteria identified Cx Nom (U) Culture exhibits no growth. [facility] Determination of erythrocyte mean corpuscular volume (MCV)Ordered By: Emily Johnson on 05-26-2023 MCV (RBC) [Entitic vol] 85.8 fL 81-99 [facility] HIV - WCHon 05-26-2023 HIV Non-Reactive Normal Nonreactive [facility] Comment on above: Order Comment: Reaso n for Exam: Performed By: #### L 100.0100, BTS, L3890.6300, L3890.6100, L3890.6005, L509.8000, L509.4005 ####[facility] [address] [place], [place], [id number] HIV 1 and HIV-2 antibody ass ay with HIV-1 p24 antigen detectionOrdered By: Emily Johnson on 05-26-2023 HIV 1+2 Ab+HIV1 p24 Ag IA Ql Non-Reactive Nonreactive [facility] Hematocrit Auto (Bld) [Volum e fraction]Ordered By: Emily Johnson on 05-26-2023 Hematocrit (Bld) [Volume fraction] 38.7 % 37-47 [facility] Hepatitis B Surface Antigeno n 05-26-2023 HEP B Surf Ag Non-Reactive Normal Nonreactive [facility] Comment on above: Order Comment: Reaso n for Exam: Performed By: #### L 100.0100, BTS, L3890.6300, L3890.6100, L3890.6005, L509.8000, L509.4005 ####[facility] [address] [place], [address] Hepatitis C Antibodyon 05-26 Hepatitis C Ab [facility]-Reactive [facility] Comment on above: Order Comment: Reaso n for Exam: Result Comment: Non Reactive: < 0.8 Equivocal: >/= 0.8 to < 1.0 Reactive: >/= 1.0 The CDC recommends that a reactive/equivocal HCV antibody result be followed up by the HCV Nucleic Acid Amplification test (468162) Performed By: #### L 100.0100, BTS, L3890.6300, L3890.6100, L3890.6005, L509.8000, L509.4005 ####[facility] [address] [place], [address] L509.8000on 05-26-2023 Syphilis Abs Non-Reactive Normal [facility] Comment on above: Order Comment: Reaso n for Exam: Performed By: #### L 100.0100, BTS, L3890.6300, L3890.6100, L3890.6005, L509.8000, L509.4005 ####[facility] [address] [place], [address] Laboratory - CytologyOrdered By: Emily Johnson on 05-26-2023 Clinical Quality Assurance Specialist Cyto stain Nom (Cvx/Vag) [ID] Comment . [facility] Comment on above: Archana Aggarwal, Cytote chnologist (ASCP) Laboratory - Hematology and Cell countsOrdered By: Emily Johnson on 05-26-2023 Erythrocyte distribution width (RBC) [Entitic vol] 46.5 fL 35.1-43.9 [facility] Erythrocyte distribution width (RBC) [Ratio] 14.9 % 11.6-14.6 [facility] Immature granulocytes/100 WBC (Bld) 0.500 % 0.0-0.9 [facility] Comment on above: IG% - Immature Granu locytes (promyelocytes, myelocytes and metamyelocytes) > 1% indicates that a LEFT SHIFT is Present. MCH (RBC) [Entitic mass] 27.7 pg 27.0-32.0 [facility] Nucleated RBC/100 WBC (Bld) [Ratio] 0 % 0-5 [facility] Laboratory - Microbiology an d Antimicrobial susceptibilityOrdered By: Emily Johnson on 05-26-2023 N. gonorrhoeae DNA MAYRA+probe Ql (Unsp spec) Negative Negative [facility] Comment on above: Performed at: =G - [facility] [address] [id number] Director: Lisa Ellison MD, Phone: [phone] Laboratory - Miscellaneous t estsOrdered By: Emily Johnson on 05-26-2023 Service comment (Unsp spec) [Interp] Comment . [facility] Comment on above: This liquid based Th inPrep(R) pap test was screened withthe use of an image guided system. Service comment (Unsp spec) [Interp] . . [facility] MCHC Auto (RBC) [Mass/Vol]Or dered By: Emily Johnson on 05-26-2023 MCHC (RBC) [Mass/Vol] 32.3 g/dL 32-36 [facility] No Panel InformationOrdered By: Emily Johnson on 05-26-2023 Human Papillomavirus Screen Comment . [facility] Comment on above: The HPV DNA reflex c riteria were not met with this specimenresult therefore, no HPV testing was performed.Performed at: WB - [facility] [address] [id number] Director: Lisa Ellison MD, Phone: [phone] Pap Smear QC Review Comment . [facility] Comment on above: Mya Yang ytotechnologist (ASCP) Pathology report final diagnosis Narrative Comment . [facility] Comment on above: NEGATIVE FOR INTRAEP ITHELIAL LESION OR MALIGNANCY.CELLULAR CHANGES ASSOCIATED WITH INFLAMMATION ARE PRESENT.THIS SPECIMEN WAS RESCREENED PART OF OUR FACTORER PROGRAM. Hepatitis B Surface Antigen Non-Reactive Nonreactive [facility] Hepatitis C Antibody Non-Reactive Nonreactive [facility] Comment on above: Non Reactive: < 0.8 Equivocal: >/= 0.8 to < 1.0 Reactive: >/= 1.0The CDC recommends that a reactive/equivocal HCV antibody result be followed up by the HCV Nucleic Acid Amplificationtest (007723) Rubella IgG Antibody Reactive Nonreactive [facility] Comment on above: Antibody Results Int erpretation of Immune Status Non Reactive Presumed Non-Immune Equivocal Equivocal Reactive Presumed Immune Literature Teacher Office Visit Reporton 05-26-2023 Literature Teacher Office Visit Report [facility]'s [address] [place] [address] OFFICE VISIT Date of Service: 05/26/23 MR#: [id number] Acct: [id number] Name: PETE STEWART Rep #: [id number] 2 : 1995 Provider: CAMDEN uriostegui Age/Sex: 27/F [place] [facility] [place]: Signed Intake Vital Signs 03/28/22 23:37 05/26/23 10:23 05/26/23 10:25 Height 5 ft 3 in 5 ft 3 in 5 ft 3 in Weight: 117 lb BMI 20.7 BP 101/67 Intake Visit Reasons: NOB [employer] Required: No Is patient in pain?: No Allergies No Known Allergies Allergy (Verified 05/26/23 10:24) Medications multivitamin no.47-iron fum 27 mg-folate no.1 1 mg-dha 300 mg capsule (PNV-DHA) cap PO 05/26/23 [History Confirmed 05/26/23] Last Menstrual Period: 03/29/23 Zika: Zika virus screening: Negative : No PFSH PFSH Medical History (Updated 09/25/23 @ 13:06 by Emily Johnsno CNM) 38 weeks gestation of Alcohol use Anemia affecting Back pain Dizziness False labor Migraine headache Non-smoker Spontaneous rupture of membranes Vaginal delivery Wears glasses Surgical History H/O dilation and curettage Hx of myringotomy Hx of wisdom tooth extraction Family History (Updated 05/26/23 @ 10:26 by Leslie Man MA) Other Hx of wisdom tooth extraction Social History (Updated 05/26/23 @ 10:28 by Leslie Man MA) adopted: No household members: family housing: house number of children: 1 current occupational status: employed 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 Date Name GA/Weeks Outcome Route Bth Weight Infant Gen Labor Lgth Anesthesia Del Locatn Provider FOB 04/13/21 6 spontaneous 03/29/22 Angie 40 live - full term 7#14 Female [facility] [place] Ruby Matthew HPI NOB Details: PETE STEWART is a 27 year old who presents for New OB visit. OB Visit ZELALEM Calculator Estimated Delivery Date Method Current WG Current Estimate 12/04/23 Ultrasound #1 12w 4d Other Estimates 01/03/24 LMP (Uncertain) 8w 2d Expected Delivery Route/Plan Labor Preferences- CB/BF classes: [] labor support person: [] labor intervention preferences: [] pain management options preferred: [] cut cord/dad catch: [] : [] PP control planned: [] discussed possible routes of delivery and associated risks: [] special requests: [] Specific Issue/Plans Covid status: [] Flu vaccine: [] Tdap vaccine: [] Rhogam: [] LARC form signed: [] Problem list reviewed and updated with the most current plan of care details and appropriate orders placed. Relevant counseling for the gestational age provided. Continue routine care and follow up unless otherwise noted in visit notes/problem list details Initial Weight: 117 lb Date -???-???-???-???-?? ?-???-???-???-???-? ??-???-???- EGA Weight BP Urine Prot -???-???-???-???-?? ?-???-???-???-???-? ??-???-???- Glucose FHR FuHt Pres Dilation -???-???-???-???-?? ?-???-???-???-???-? ??-???-???- Effaced St Visit Note 05/26/23 -???-???-???-???-?? ?-???-???-???-???-? ??-???-???- 12w 4d 117 lb (+0 oz) 101/67 -???-???-???-???-?? ?-???-???-???-???-? ??-???-???- 157 -???-???-???-???-?? ?-???-???-???-???-? ??-???-???- LC CRL not c w LMP. ZELALEM changed to 12/04/2023. HC/AC/FL =12w4d. discussed and declines nipt. anatomy scan with [facility] due to insurance cost. Menstrual History Last Menstrual Period: 03/29/23 Reported LMP: unknown Normal amount/duration: Yes On hormonal BC at conception: No Antepartum Record Genetic Screening: Congenital Heart Defect: Other, Neural Tube Defect: Other, Hemoglobinopathy Or Carrier: Other, Cystic Fibrosis: Other, Chromosome Abnormality: Other, Sameer-Sachs: Other, Hemophilia: Other, Intellectual Disability/Autism: Other, Recurrent Loss/Stillbirth: Other, Other Structural Defect: Other, Other Genetic Disease: Other and Maternal Metabolic Disorder: Other Infection History: Live with someone with TB or Exposed to TB: No, Patient or Pa (more content not included)... Normal [facility] Platelets bldOrdered By: Jessica Johnson on 05-26-2023 Platelets (Bld) [#/Vol] 165 10*3/uL 150-450 [facility] Rubella IgGon 05-26-2023 Rubella IgG Reactive Normal Nonreactive [facility] Comment on above: Order Comment: Reaso n for Exam: Result Comment: Anti body Results Interpretation of Immune Status Non Reactive Presumed Non-Immune Equivocal Equivocal Reactive Presumed Immune Performed By: #### L 100.0100, BTS, L3890.6300, L3890.6100, L3890.6005, L509.8000, L509.4005 ####[facility] [id number] [place], [place], [phone] Serum Treponema species anti body detectionOrdered By: Emily Johnson on 05-26-2023 Treponema sp Ab Ql (S) Non-Reactive [facility] Type AND Screenon 05-26-2023 ABO and Rh group Nom (Bld) Blood group A Rh(D) positive Normal [facility] Comment on above: Order Comment: PN Performed By: #### L 100.0100, BTS, L3890.6300, L3890.6100, L3890.6005, L509.8000, L509.4005 ####[facility] [id number] [place], [place], [phone] CNPNon 05-03-2023 CNPN Telephone ([facility]) ---- PETE STEWART ([id number]) 1995 F Date Time Provider Department 05/03/23 BRITTANY VERMA During your visit today, we recorded the following information about you: Kassandra Chavez LPN 05/03/2023 9:21 AM Signed ----- Message from Brittany Verma APRN.TEMPLATE FITTER sent at 05/03/2023 8:12 AM EDT ----- Please advise patient the COVID, flu, RSV test was negative. Kassandra Chavez LPN 05/03/2023 9:25 AM Signed Left message for patient to return call. ALYSA Hendricks Stephanie, RN 05/03/2023 9:27 AM Signed Patient notified of results. Patient verbalizes understanding. Mary Gilbert RN Allergies As of Date: 05/03/2023 (No Known Allergies) Date Reviewed: 05/02/2023 Reviewed by: Nolberto Hunt APRN.CNP - Fully Assessed Reason for Visit: Results [95] Problem List As Of Date: 05/03/2023 (None) Encounter Status:Closed by MARY GILBERT on 05/03/23 [facility] CNOVon 05-02-2023 CNOV Office Visit (UCTR) ---- PETE STEWART ([id number]) 1995 F Date Time Provider Department 05/02/23 5:45 PM NOLBERTO HUNT During your visit today, we recorded the following information about you: Temperature Pulse Respiration Blood pressure 98.7 degrees 78/minute 18/minute 103/66 Weight 52.9 kg Umm Santana APRN.TEMPLATE FITTER 05/02/2023 6:13 PM Signed Subjective The history is provided by the patient. No assistant speech language pathologist was used. HPI Pete Stewart is a 27 year old female who [...] have confirmed and edited as necessary, the [facility] ROS Objective Physical Exam Nolberto Hunt, ZAHEER.TEMPLATE FITTER 05/02/2023 6:13 PM Signed Subjective HPI Nontoxic-appearing female presents urgent care accompanied by significant other. Patient states she is . Is in her first trimester. Has not seen FACTORER yet. Chief complaint flulike symptoms. Duration of [...] + RSV Patient nontoxic-appearing. Hemodynamically stable. Suspicious (more content not included)... Normal [facility] ROUTINE FLU A/B + RSVon 09-0 FLUAV RNA MAYRA+probe Ql (Unsp spec) Not detected Normal Not Detected [facility] Comment on above: Order Comment: Speci men Type: SWAB OF INTERNAL NOSE Ordering Facility: [facility] Address: [address] [place] [address] Performed By: #### R ZIGGYSGail, 93603-2 #### [facility] CLIA [id number] [address] [place] [address] [place] FLUBV RNA MAYRA+probe Ql (Unsp spec) Not detected Normal Not Detected [facility] Comment on above: Order Comment: Speci men Type: SWAB OF INTERNAL NOSE Ordering Facility: [facility] Address: [address] [place] [address] Performed By: #### R ZIGGYSGail, 18044-0 #### [facility] CLIA [id number] [address] [place] [address] [place] RSV A RNA MAYRA+probe Ql (Unsp spec) Not detected Normal Not Detected [facility] Comment on above: Order Comment: Speci men Type: SWAB OF INTERNAL NOSE Ordering Facility: [facility] Address: [address] [place] [address] Performed By: #### R ZIGGYSV, 53686-2 #### [facility] CLIA [id number] [address] [place] [address] [place] SARS-CoV-2 RNA Resp Ql MAYRA+p robeon 05-02-2023 SARS-CoV-2 (COVID-19) RNA MAYRA+probe Ql (Resp) COVID 19 RESULT: Not detected The method used is RT-PCR or an equivalent NAAT method. Reference Range (the expected result in uninfected individuals): Not detected Normal [facility] Comment on above: Performed By: #### R ZIGGYSV, 10995-1 #### [facility] CLIA [id number] [address] [place] [address] [place] CNPNon 12-10-2022 CNPN Telephone ([facility]AMP[facility]) ---- PATPETE Hugo ([id number]) 1995 F Date Time Provider Department 12/10/22 LETTY BIRD During your visit today, we recorded the following information about you: Letty Bird APRN.TEMPLATE FITTER 12/10/2022 8:16 AM Signed Please let patient know her iron is low. I would like her to start ferrous sulfate 325mg daily. This medication is constipating so I would like her to take miralax 17gram daily since she already has constipation issue. Sandra Kirby RN 12/10/2022 8:41 AM Signed Call placed to patient with no answer. Message left to return call and ask to speak to a triage nurse to receive provider's message. SOFIA Rodriguez RN 12/10/2022 8:49 AM Signed Patient notified of results and provider's instructions. Patient verbalizes understanding. Mary Gilbert RN Allergies As of Date: 12/10/2022 (Not on File) Date Reviewed: 12/09/2022 Reviewed by: Kaitlin Rodriguez Cma - Fully Assessed Reason for Visit: Results [95] Problem List As Of Date: 12/10/2022 (None) Encounter Status:Closed by MARY GILBERT on 12/10/22 Normal [facility] CBC W Auto Differential pane l (Bld)on 12-09-2022 Basophils (Bld) [#/Vol] 0.03 10*3/uL <0.11 k/uL [facility] Basophils/100 WBC (Bld) 0.4 % [facility] Differential cell count method Nom (Bld) Auto [facility] Eosinophils (Bld) [#/Vol] 0.24 10*3/uL <0.46 k/uL [facility] Eosinophils/100 WBC (Bld) 3.1 % [facility] Erythrocyte distribution width (RBC) [Ratio] 14.4 % 11.5 - 15.0 % [facility] Hematocrit (Bld) [Volume fraction] 41.7 % 36.0 - 46.0 % [facility] Hemoglobin (Bld) [Mass/Vol] 13.3 g/dL 11.5 - 15.5 g/dL [facility] Immature granulocytes (Bld) [#/Vol] <0.10 k/uL [facility] Immature granulocytes/100 WBC (Bld) 0.3 % [facility] Lymphocytes (Bld) [#/Vol] 1.04 10*3/uL 1.00 - 4.00 k/uL [facility] Lymphocytes/100 WBC (Bld) 13.4 % [facility] MCH (RBC) [Entitic mass] 27.1 pg 26. 0 - 34.0 pg [facility] MCHC (RBC) [Mass/Vol] 31.9 g/dL 30.5 - 36.0 g/dL [facility] MCV (RBC) [Entitic vol] 84.9 fL 80.0 - 100.0 fL [facility] Monocytes (Bld) [#/Vol] 0.50 10*3/uL <0.87 k/uL [facility] Monocytes/100 WBC (Bld) 6.5 % [facility] Neutrophils (Bld) [#/Vol] 5.92 10*3/uL 1.45 - 7.50 k/uL [facility] Neutrophils/100 WBC (Bld) 76.3 % [facility] Nucleated RBC (Bld) [#/Vol] <0.01 k/uL [facility] Nucleated RBC/100 WBC (Bld) [Ratio] 0.0 /100 WBC [facility] Platelet mean volume (Bld) [Entitic vol] 12.5 fL 9.0 - 12.7 fL [facility] Platelets (Bld) [#/Vol] 155 10*3/uL 150 - 400 k/uL [facility] RBC (Bld) [#/Vol] 4.91 10*6/uL 3.90 - 5.2 0 m/uL [facility] WBC (Bld) [#/Vol] 7.75 10*3/uL 3.70 - 11. 00 k/uL [facility] Basophils (Bld) [#/Vol] 0.03 10*3/uL Normal <0.11 [facility] Comment on above: Order Comment: Speci men Type: BLOOD SPECIMEN Ordering Facility: [facility] Address: [address] Performed By: #### 5 7021-8 #### [facility] CLIA [id number] [address] [place] Basophils/100 WBC (Bld) 0.4 % Normal [facility] Comment on above: Order Comment: Speci men Type: BLOOD SPECIMEN Ordering Facility: [facility] Address: [address] Performed By: #### 5 7021-8 #### [facility] CLIA [id number] [address] [place] [address] [place] Differential cell count method Nom (Bld) Auto Normal [facility] Comment on above: Order Comment: Speci men Type: BLOOD SPECIMEN Ordering Facility: [facility] Address: [address] Performed By: #### 5 7021-8 #### [facility] CLIA [id number] [address] [place] [address] [place] Eosinophils (Bld) [#/Vol] 0.24 10*3/uL Normal <0.46 [facility] Comment on above: Order Comment: Speci men Type: BLOOD SPECIMEN Ordering Facility: [facility] Address: [address] Performed By: #### 5 7021-8 #### [facility] CLIA [id number] [address] [place] Eosinophils/100 WBC (Bld) 3.1 % Normal [facility] Comment on above: Order Comment: Speci men Type: BLOOD SPECIMEN Ordering Facility: [facility] Address: [address] Performed By: #### 5 7021-8 #### [facility] CLIA [id number] [address] [place] Erythrocyte distribution width (RBC) [Ratio] 14.4 % Normal 11.5-15.0 [facility] Comment on above: Order Comment: Speci men Type: BLOOD SPECIMEN Ordering Facility: [facility] Address: [address] [place] [address] Performed By: #### 5 7021-8 #### [facility] CLIA [id number] [address] [place] [address] [place] Hematocrit (Bld) [Volume fraction] 41.7 % Normal 36.0-46.0 [facility] Comment on above: Order Comment: Speci men Type: BLOOD SPECIMEN Ordering Facility: [facility] Address: [address] [place], [place] [address] Performed By: #### 5 7021-8 #### [facility] CLIA [id number] [address] [place] [address] [place] Hemoglobin (Bld) [Mass/Vol] 13.3 g/dL Normal 11.5-15.5 [facility] Comment on above: Order Comment: Speci men Type: BLOOD SPECIMEN Ordering Facility: [facility] Address: [address] [place], [place] [address] Performed By: #### 5 7021-8 #### [facility] CLIA [id number] [address] [place] [address] [place] Immature granulocytes (Bld) [#/Vol] 10*3/uL Normal <0.10 [facility] Comment on above: Order Comment: Speci men Type: BLOOD SPECIMEN Ordering Facility: [facility] Address: [address] [place], [place] [address] Performed By: #### 5 7021-8 #### [facility] CLIA [id number] [address] [place] [address] [place] Immature granulocytes/100 WBC (Bld) 0.3 % Normal [facility] Comment on above: Order Comment: Speci men Type: BLOOD SPECIMEN Ordering Facility: [facility] Address: [address] Performed By: #### 5 7021-8 #### [facility] CLIA [id number] [address] [place] [address] [place] Lymphocytes (Bld) [#/Vol] 1.04 10*3/uL Normal 1.00-4.00 [facility] Comment on above: Order Comment: Speci men Type: BLOOD SPECIMEN Ordering Facility: [facility] Address: [address] [place] [address] Performed By: #### 5 7021-8 #### [facility] CLIA [id number] [address] [place] [address] [place] Lymphocytes/100 WBC (Bld) 13.4 % Normal [facility] Comment on above: Order Comment: Speci men Type: BLOOD SPECIMEN Ordering Facility: [facility] Address: [address] Performed By: #### 5 7021-8 #### [facility] CLIA [id number] [address] [place] [address] [place] MCH (RBC) [Entitic mass] 27.1 pg Normal 26.0-34.0 [facility] Comment on above: Order Comment: Speci men Type: BLOOD SPECIMEN Ordering Facility: [facility] Address: [address] Performed By: #### 5 7021-8 #### [facility] CLIA [id number] [address] [place] [address] [place] MCHC (RBC) [Mass/Vol] 31.9 g/dL Normal 30.5-36.0 [facility] Comment on above: Order Comment: Speci men Type: BLOOD SPECIMEN Ordering Facility: [facility] Address: [address] Performed By: #### 5 7021-8 #### [facility] CLIA [id number] [address] [place] [address] [place] MCV (RBC) [Entitic vol] 84.9 fL Normal 80.0-100.0 [facility] Comment on above: Order Comment: Speci men Type: BLOOD SPECIMEN Ordering Facility: [facility] Address: [address] [place] [address] Performed By: #### 5 7021-8 #### [facility] CLIA [id number] [address] [place] [address] [place] Monocytes (Bld) [#/Vol] 0.50 10*3/uL Normal <0.87 [facility] Comment on above: Order Comment: Speci men Type: BLOOD SPECIMEN Ordering Facility: [facility] Address: [address] [place], [place] [address] Performed By: #### 5 7021-8 #### [facility] CLIA [id number] [address] [place] [address] [place] Monocytes/100 WBC (Bld) 6.5 % Normal [facility] Comment on above: Order Comment: Speci men Type: BLOOD SPECIMEN Ordering Facility: [facility] Address: [address] [place], [place] [address] Performed By: #### 5 7021-8 #### [facility] CLIA [id number] [address] [place] [address] [place] Neutrophils (Bld) [#/Vol] 5.92 10*3/uL Normal 1.45-7.50 [facility] Comment on above: Order Comment: Speci men Type: BLOOD SPECIMEN Ordering Facility: [facility] Address: [address] [place] [address] Performed By: #### 5 7021-8 #### [facility] CLIA [id number] [address] [place] [address] [place] Neutrophils/100 WBC (Bld) 76.3 % Normal [facility] Comment on above: Order Comment: Speci men Type: BLOOD SPECIMEN Ordering Facility: [facility] Address: [address] [place] [address] Performed By: #### 5 7021-8 #### [facility] CLIA [id number] [address] [place] [address] [place] Nucleated RBC (Bld) [#/Vol] 10*3/uL Normal <0.01 [facility] Comment on above: Order Comment: Speci men Type: BLOOD SPECIMEN Ordering Facility: [facility] Address: [address] Performed By: #### 5 7021-8 #### [facility] CLIA [id number] [address] [place] [address] [place] Nucleated RBC/100 WBC (Bld) [Ratio] 0.0 /100 WBC Normal [facility] Comment on above: Order Comment: Speci men Type: BLOOD SPECIMEN Ordering Facility: [facility] Address: [address] Performed By: #### 5 7021-8 #### [facility] CLIA [id number] [address] [place] [address] [place] Platelet mean volume (Bld) [Entitic vol] 12.5 fL Normal 9.0-12.7 [facility] Comment on above: Order Comment: Speci men Type: BLOOD SPECIMEN Ordering Facility: [facility] Address: [address] [place] [address] Performed By: #### 5 7021-8 #### [facility] CLIA [id number] [address] [place] [address] [place] Platelets (Bld) [#/Vol] 155 10*3/uL Normal 150-400 [facility] Comment on above: Order Comment: Speci men Type: BLOOD SPECIMEN Ordering Facility: [facility] Address: [address] [place] [address] Performed By: #### 5 7021-8 #### [facility] CLIA [id number] [facility] [address] RBC (Bld) [#/Vol] 4.91 10*6/uL Normal 3.90-5.20 [facility] Comment on above: Order Comment: Speci men Type: BLOOD SPECIMEN Ordering Facility: [facility] Address: [address] [place] [address] Performed By: #### 5 7021-8 #### [facility] CLIA [id number] [facility] [address] WBC (Bld) [#/Vol] 7.75 10*3/uL Normal 3.70-11.00 [facility] Comment on above: Order Comment: Speci men Type: BLOOD SPECIMEN Ordering Facility: [facility] Address: [address] [place] [address] Performed By: #### 5 7021-8 #### [facility] CLIA [id number] [address] [place] [address] CNOVon 12-09-2022 CNOV Office Visit (TRUPTIWS) ---- PETE STEWART ([id number]) 1995 F Date Time Provider Department 12/09/22 1:00 PM LETTY BIRD During your visit today, we recorded the following information about you: Pulse Respiration Blood pressure Weight 70/minute 14/minute 104/62 54.9 kg Height 1.6 m Letty Bird APRN.TEMPLATE FITTER 12/09/2022 1:40 PM Signed Chief Complaint Patient presents with: Establish Care HPI Petesa Loraine Stewart is a 27 year old female who presents here today for Above Complaints.. [facility]. Patient has a 9 month old baby [...] on file prior to visit. No current facility-administer ed medications on file prior to visit. Social [...] disturbance, mood disorder and recent psychosocial stressors HEMATOLOGY/LYMPHOLO GY: Negative for prolonged bleeding, bruising easily or [...] diet of 1000 mg/day for under 50, 1353-9539 mg/day for 50+ - Depression screening tool [...] IRON + TIBC - FERRITIN BLD Letty Bird, [employer] SALES LEADER.ELINOR Bird APRN.ELINOR 12/09/2022 1:35 PM Addendum Complete labwork Follow up in 1 year Allergies As of Date: 12/09/2022 (Not on File) Date Reviewed: 12/09/2022 Reviewed by: Kaitlin Rodriguez Cma - Fully Assessed Reason for Visit: Establish Care [42] Primary Visit Diagnosis:Encounter for lipid screening for cardiovascular disease [Z13.220, Z13.6] (more content not included)... Normal [facility] metabolic 2000 panelon 12-09-2022 Albumin [Mass/Vol] 4.2 g/dL Normal 3.9-4.9 [facility] Comment on above: Order Comment: Speci men Type: BLOOD SPECIMEN Ordering Facility: [facility] Address: [address] [place] [address] Performed By: #### 3 016-3, 24976-5, LIPNF, 67326-6 #### [facility] CLIA [id number] [address] [place] [address] [place] ALP [Catalytic activity/Vol] 93 U/L Normal 34-123 [facility] Comment on above: Order Comment: Speci men Type: BLOOD SPECIMEN Ordering Facility: [facility] Address: [address] [place], [place] [address] Performed By: #### 3 016-3, 93166-4, LIPNF, 16583-0 #### [facility] CLIA [id number] [address] [place] [address] [place] ALT [Catalytic activity/Vol] 13 U/L Normal 7-38 [facility] Comment on above: Order Comment: Speci men Type: BLOOD SPECIMEN Ordering Facility: [facility] Address: [address] [place] [address] Performed By: #### 3 016-3, 92893-5, LIPNF, 18556-5 #### [facility] CLIA [id number] [address] [place] [address] [place] Anion gap [Moles/Vol] 10 mmol/L Normal 9-18 [facility] Comment on above: Order Comment: Speci men Type: BLOOD SPECIMEN Ordering Facility: [facility] Address: [address] [place] [address] Performed By: #### 3 016-3, 49236-3, LIPNF, 12109-9 #### [facility] CLIA [id number] [address] [place] [address] [place] AST [Catalytic activity/Vol] 20 U/L Normal 13-35 [facility] Comment on above: Order Comment: Speci men Type: BLOOD SPECIMEN Ordering Facility: [facility] Address: Anu [address] Performed By: #### 3 016-3, 99030-0, LIPNF, 57149-2 #### [facility] CLIA [id number] [address] [place] [address] [place] Bilirubin [Mass/Vol] 0.4 mg/dL Normal 0.2-1.3 [facility] Comment on above: Order Comment: Speci men Type: BLOOD SPECIMEN Ordering Facility: [facility] Address: [address] [place] [address] Performed By: #### 3 016-3, 15086-1, LIPNF, 42425-2 #### [facility] CLIA [id number] [address] [place] [address] [place] Calcium [Mass/Vol] 9.1 mg/dL Normal 8.5-10.2 [facility] Comment on above: Order Comment: Speci men Type: BLOOD SPECIMEN Ordering Facility: [facility] Address: [address] [place] [address] Performed By: #### 3 016-3, 89155-2, LIPNF, 18414-3 #### [facility] CLIA [id number] [address] [place] [address] [place] Chloride [Moles/Vol] 107 mmol/L High 97-105 [facility] Comment on above: Order Comment: Speci men Type: BLOOD SPECIMEN Ordering Facility: [facility] Address: [address] [place] [address] Performed By: #### 3 016-3, 59147-4, LIPNF, 36463-7 #### [facility] CLIA [id number] [address] [place] [address] [place] CO2 [Moles/Vol] 21 mmol/L Low 22-30 [facility] Comment on above: Order Comment: Speci men Type: BLOOD SPECIMEN Ordering Facility: [facility] Address: [address] [address] Performed By: #### 3 016-3, 68155-6, LIPNF, 92275-8 #### [facility] CLIA [id number] [address] [place] [address] [place] Creatinine [Mass/Vol] 0.56 mg/dL Low 0.58-0.96 [facility] Comment on above: Order Comment: Speci men Type: BLOOD SPECIMEN Ordering Facility: [facility] Address: [address] [address] Performed By: #### 3 016-3, 45572-0, LIPNF, 38258-4 #### [facility] CLIA [id number] [address] [place] [address] [place] ESTIMATED GLOMERULAR FILTRATION RATE 130 mL/min/1.73m??? Normal >=60 [facility] Comment on above: Order Comment: Speci men Type: BLOOD SPECIMEN Ordering Facility: [facility] Address: [address] [address] Result Comment: June mated Glomerular Filtration Rate (eGFR) is calculated using the 2020 CKD-EPI creatinine equation. This equation utilizes serum creatinine, sex, and age as parameters. The creatinine assay has traceable calibration to isotope dilution-mass spectrometry. Refer to KDIGO guidelines for clinical interpretation. In patients with unstable renal function, e.g. those with acute kidney injury, the eGFR may not accurately reflect actual GFR. Performed By: #### 3 016-3, 11677-6, LIPNF, 80010-6 #### [facility] CLIA [id number] [address] [place] [address] [place] Glucose [Mass/Vol] 94 mg/dL Normal 74-99 [facility] Comment on above: Order Comment: Speci men Type: BLOOD SPECIMEN Ordering Facility: [facility] Address: [address] Result Comment: The [place] Diabetes Association (ADA) provides guidance for cutoff values for fasting glucose and random glucose. The ADA defines fasting as no caloric intake for at least 8 hours. Fasting plasma glucose results between 100 to 125 mg/dL indicate increased risk for diabetes (prediabetes). Fasting plasma glucose results greater than or equal to 126 mg/dL meet the criteria for diagnosis of diabetes. In the absence of unequivocal hyperglycemia, results should be confirmed by repeat testing. In a patient with classic symptoms of hyperglycemia or hyperglycemic crisis, random plasma glucose results greater than or equal to 200 mg/dL meet the criteria for diagnosis of diabetes. Reference: Standards of Medical Care in Diabetes 2016, [place] Diabetes Association. Diabetes Care. 2016.39(Suppl 1). Performed By: #### 3 016-3, 13807-2, LIPJAROD, 13111-7 #### [facility] CLIA [id number] [address] [place] [address] [place] Potassium [Moles/Vol] 3.9 mmol/L Normal 3.7-5.1 [facility] Comment on above: Order Comment: Speci men Type: BLOOD SPECIMEN Ordering Facility: [facility] Address: [address] [place] [phone] Performed By: #### 3 016-3, 19363-5, JOAN, 60174-4 #### [facility] CLIA [id number] [address] [place] [address] [place] Protein [Mass/Vol] 7.1 g/dL Normal 6.3-8.0 [facility] Comment on above: Order Comment: Speci men Type: BLOOD SPECIMEN Ordering Facility: [facility] Address: [address] [place] [phone] Performed By: #### 3 016-3, 48105-7, LIPJAROD, 02042-4 #### [facility] CLIA [id number] [address] [place] [address] [place] Sodium [Moles/Vol] 138 mmol/L Normal 136-144 [facility] Comment on above: Order Comment: Speci men Type: BLOOD SPECIMEN Ordering Facility: [facility] Address: [address] [place] [address] Performed By: #### 3 016-3, 59186-9, LIPNF, 58318-3 #### [facility] CLIA [id number] [address] [place] [address] [place] Urea nitrogen [Mass/Vol] 8 mg/dL Normal 7-21 [facility] Comment on above: Order Comment: Speci men Type: BLOOD SPECIMEN Ordering Facility: [facility] Address: [address] [place] [address] Performed By: #### 3 016-3, 86630-6, LIPNF, 44656-2 #### [facility] CLIA [id number] [address] [place] [address] [place] FERRITIN BLDon 12-09-2022 Ferritin [Mass/Vol] 17.2 ng/mL 14.7 - 2 05.1 ng/mL [facility] Ferritin SerPl-mCncon 2022 Ferritin [Mass/Vol] 17.2 ng/mL Normal 14.7-205.1 [facility] Comment on above: Order Comment: Codeyi men Type: BLOOD SPECIMEN Ordering Facility: [facility] Address: [address] [place] [address] Performed By: #### 2 276-4 #### [facility] CLIA [id number] [address] [place] [address] [place] HbA1c (Bld)on 12-09-2022 Average glucose Estimated from glycated hemoglobin (Bld) [Mass/Vol] 100 mg/dL [facility] HbA1c (Bld) [Mass fraction] 5.1 % 4.3 - 5.6 % [facility] Average glucose Estimated from glycated hemoglobin (Bld) [Mass/Vol] 100 mg/dL Normal [facility] Comment on above: Order Comment: Speci men Type: BLOOD SPECIMEN Ordering Facility: [facility] Address: [address] [place] [address] Result Comment: eAG: (Estimated average glucose) is a calculated value from HgbA1c and is premium representative of the average blood glucose level in the last 2-3 month period. Performed By: #### 5 5454-3 #### [facility] CLIA [id number] [address] [place] [address] [place] HbA1c (Bld) [Mass fraction] 5.1 % Normal 4.3-5.6 [facility] Comment on above: Order Comment: Gianluca men Type: BLOOD SPECIMEN Ordering Facility: [facility] Address: [address] [address] Result Comment: [place] Diabetes Association guidelines indicate that patients with HgbA1c in the range 5.7-6.4% are at increased risk for development of diabetes, and intervention by lifestyle modification may be beneficial. HgbA1c greater or equal to 6.5% is considered diagnostic of diabetes. Performed By: #### 5 5454-3 #### [facility] CLIA [id number] [address] [place] [address] [place] Iron and Iron binding capaci ty panelon 12-09-2022 Iron [Mass/Vol] 20 ug/dL Low 41-186 [facility] Comment on above: Order Comment: Gianluca manning Type: BLOOD SPECIMEN Ordering Facility: [facility] Address: [address] [address] Performed By: #### 3 016-3, 64648-9, LIPNF, 07025-6 #### [facility] CLIA [id number] [address] [place] [address] [place] Iron binding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 COMM[facility]ITY [facility] MEDICAID [facility] [id number] 2022-Present [phone] [address] [place] [address] Medicaid [id number] 2022 Medicaid [id number] 2022 Private Health Insurance [facility] [id number] 2022-Present [phone] [address] [address] [place] [address] HMO [id number] 2022 Unknown [id number] [employer] ( and others) [id number] Unknown SELF PAY INSURANCE [id number] Unknown [facility] PACKAGE PLAN [id number] Unknown [id number] 2.16.840.1.104075.3.579.2. 462 Unknown [id number] 2.16.840.1.278926.3.579.2. 462 Unknown [id number] 2.16.840.1.070064.3.579.2. 462 Unknown [id number] 2.16.840.1.402568.3.579.2. 462 Unknown [id number] 2.16.840.1.494133.3.579.2. 462 Unknown [id number] 2.16.840.1.581506.3.579.2. 462 Unknown [id number] 2.16.840.1.548777.3.579.2. 462 Unknown [id number] 2.16.840.1.559649.3.579.2. 462 Unknown [id number] 2.16.840.1.990254.3.579.2. 462 Unknown [id number] 2.16.840.1.073996.3.579.2. 462 Unknown [id number] 2.16.840.1.144165.3.579.2. 462 Unknown [id number] 2.16.840.1.857740.3.579.2. 462 Unknown [id number] 2.16.840.1.004021.3.579.2. 462 Unknown [id number] 2.16.840.1.988650.3.579.2. 462 Unknown [id number] 2.16.840.1.967538.3.579.2. 462 Unknown [id number] 2.16.840.1.238414.3.579.2. 462 Unknown [id number] 2.16.840.1.972109.3.579.2. 462 Unknown [id number] 2.16.840.1.059597.3.579.2. 462 Unknown [id number] 2.16.840.1.323456.3.579.2. 462 Unknown [id number] 2.16.840.1.190440.3.579.2. 462 Unknown [id number] 2.16.840.1.351215.3.579.2. 462 Unknown [id number] 2.16.840.1.733594.3.579.2. 462 Unknown [id number] 2.16.840.1.054136.3.579.2. 462 Unknown [id number] 2.16.840.1.021913.3.579.2. 462 Unknown [id number] 2.16.840.1.928611.3.579.2. 462 Unknown [id number] 2.16.840.1.943745.3.579.2. 462 Unknown [id number] 2.16.840.1.877881.3.579.2. 462 Unknown [id number] 2.16.840.1.949236.3.579.2. 462 Unknown [id number] 2.16.840.1.299841.3.579.2. 462 Unknown [id number] 2.16.840.1.189357.3.579.2. 462 Unknown [id number] 2.16.840.1.675643.3.579.2. 462 Social History Date Type Detail Facility Start: 04-12-2021 End: 12-04-2023 Tobacco smoking status NHIS Unknown if ever smoked [facility] Start: 1995 Sex Assigned At Female [facility] Start: 12-09-2022 Tobacco smoking stat us FLIS Never smoked tobacco [facility] Start: 12-09-2022 Tobacco use and exposure Smokeless tobacco non-user [facility] Start: 12-09-2022 End: 05-02-2023 Alcohol intake Ex-drinker (finding) [facility] Start: 1995 Sex Assigned At Not on file [facility] Start: 12-09-2022 End: 05-02-2023 History of Social function [facility] Work Phone: Start: 12-09-2022 End: 05-02-2023 Tobacco use panel [facility] Work Phone: Adult Depression Screening Assessment 0 [facility] Work Phone: Goals Date Patient Goal Desired Activity /State Functional Status Date Assessment Result Facility 03-29-2022 Functional status Activity Abili ty With Assist of 1 [facility] Work Phone: Clinical Notes 12-09-2022 to 11-27-2023 Note Date & Type Note Facility 11-27-2023 Procedure note [facility] 11-27-2023 Progress note Note Date/Time November 27, 2023 8:0 4am [facility] Medical Records Department [address] [place] [address] Progress Note - OBGYN 11/27/23 0757 MR#: [id number] Acct: [id number] Name: PETE STEWART Rep #:[id number] : 1995 28 From: Marilu Ballesteros COMMISSARY WORKER COMMISSARY WORKER-C PCP: Care Physician,No Primary Status :ADM IN Location: [id number] Subjective Subjective Patient doing well from delivery but does complain of sore throat this am. No fever. Tolerating PO. Ambulating and voiding without difficulty. Feeding well. Denies chest pain, shortness of breath, calf pain/swelling, fevers, chills, lightheadedness. Objective Data Objective Data Vital Signs: Vital Signs Temp Pulse Resp BP Pulse Ox O2 Del Method 97.7 F L 72 17 110/74 100 Room Air 11/27/23 01:40 11/27/23 01:40 11/27/23 01:40 11/27/23 01:40 11/27/23 01:40 11/27/23 01:40 Oxygen Delivery Method Room Air Weight: 158 lb 11.725 oz Body Mass Index (BMI) 28.0 Intake & Output: Intake and Output for Last 24 Hours 11/25/23 11/26/23 11/27/23 23:59 23:59 23:59 Intake Total 1855.20 / 1855.20 1027.46 / 1027.46 Output Total 950 / 950 1300 / 1300 Balance 905.20 / 905.20 -272.54 / -272.54 Lab / Micro Data 11/25/23 14:15 Physical Exam Const alert and oriented x3 HEENT normocephalic Eyes PERRL Neck full ROM Resp normal respiratory effort GI soft to palpation GI Narrative: FF below U Assessment & Plan (1) Vaginal delivery: COMMENT: girl SM precip. Leatha (2) History of depression: COMMENT: without medications/counseling/stable (3) Sore throat: PLAN: Plan s/p PPD # 1 1. routine post delivery care 2. breast feeding- support given 3. rh positive 4. rubella immune 5. OTC management for throat, warm liguids etc 6. home today 11/27/23 0804 <Electronically signed by Marilu Ballesteros NP COMMISSARY WORKER-C> Cosigner Signature (if applicable): CC: ~ Signed [facility] Work Phone: 1(372) 487-712503-27-2024 Discharge summary Author Peggy Jauregui [facility] November 26, 2023 1:36am Note Date/Time November 26, 2023 1:3 6am [facility] Medical Records Department [address] [place] [address] Instructions for Home/Discharge Instructions 11/26/23135 MR#: [id number] Acct: [id number] Name: PETE STEWART Rep #:[id number] : 1995 28 From: Peggy ceron MD PCP: Care Physician,No Primary Status :ADM IN Discharge Instructions Diet Discharge Diet: No restrictions Activity Discharge Activity: Return to Normal Activity, May Not Drive (while taking narcotic pain medications.) and May Shower May resume sexual activity in: 4-6 weeks Dressing / Incision Call your doctor if your incision/area has: Continuous Slow Oozing, Sudden Increased Bleeding, Increased Pain/ Swelling, Increased Redness and Foul Smelling Discharge Follow Up Care Please Follow Up With: Peggy Jauregui MD When: Call [phone] to make an appointment with your doctor in 6 weeks. If you had elevated blood pressure or 4th degree laceration, you will need to be seen in 2 weeks. Test Results: Test results from this visit will be discussed in further detail at your follow- up appointment, if applicable. Discharge Plan Admission Admit Date/Time: 11/25/23 12:40 Attending Provider: Peggy Jauregui Primary Care Provider: Care Physician,No Primary Discharge Orders/Prescriptions Prescriptions: No Action PNV-DHA 27 mg iron-1 mg -300 mg capsule 1 cap PO DAILY ferrous sulfate 325 mg (65 mg iron) tablet 325 mg PO DAILY ibuprofen [Advil] 200 mg tablet 400 mg PO PRN Referrals / Follow Up: Care Physician,No Primary [Primary Care Provider] - 11/26/23135<Electronically signed by Peggy Jauregui MD>Peggy Jauregui MD CC: No Primary Care Physician ~ Signed [facility] Work Phone: 1(351) 824-546003-27-2024 History and physical note Author Peggy Jauregui [facility] November 26, 2023 1:32am Note Date/Time November 26, 2023 1:3 3am [facility] Medical Records Department [address] [place] [address] H&P Exam - FACTORER 11/25/231952 MR#: [id number] Acct: [id number] Name: PETE STEWART Rep #:[id number] : 1995 From: Peggy ceron MD PCP: Care Physician,No Primary Status :ADM IN Location: [id number] HPI - General General Date of Admission: 11/25/23 HPI Narrative PETE STEWATR, is a 28 F who presents for induction of labor secondary to decreased movement. Patient was seen in the office and had decreased movement increasing over the last day, and NST that was nonreactive and therefore was sent down for induction of labor. She had an ultrasound last weekthat showed short and long bones otherwise within normal limits. Maternal Data Information ZELALEM Calculator Estimated Delivery Date Method Current WG Current Estimate 12/04/23 Ultrasound #1 38w 6d Other Estimates 01/03/24 LMP (Uncertain) 34w 4d PFSH PFS Medical History (Updated 11/26/23 @ 01:[address] Peggy Jauregui MD) 38 weeks gestation of Alcohol use Anemia Anemia affecting Back pain Dizziness False labor Migraine headache Non-smoker Spontaneous rupture of membranes Vaginal delivery Wears glasses Home Medications multivitamin no.47-iron fum 27 mg-folate no.1 1 mg-dha 300 mg capsule (PNV-DHA)1 cap PO DAILY 05/26/23 [History Last Taken 11/24/23 20:00 1 cap] ferrous sulfate 325 mg (65 mg iron) tablet 325 mg PO DAILY 11/07/23 [History Last Taken 11/24/23 20:00 325 mg] ibuprofen 200 mg tablet (Advil) 400 mg PO PRN lower back pain 11/25/23 [History Last Taken 11/23/23 20:00 400 mg] Allergy/AdvReac Type Severity Reaction Status Date / Time No Known Allergies Allergy Verified 11/25/23 13:03 Family History Other Hx of wisdom tooth extraction Surgical History H/O dilation and curettage Hx of myringotomy Hx of wisdom tooth extraction Social History adopted: No household members: family housing: house number of children: 1 current occupational status: employed 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 occupational exposures/hazards: Yes pets and animals: Yes (not managing litter box) pets and animals: cat(s), dog(s), bird(s), snake(s) and farm animals history of recent travel: No sexually active: Yes Smoking Status: Never smoker alcohol intake: former details: not while substance use type: does not use seatbelt use: always do you feel safe at home: Yes additional social history: spouse is wafer production lead worker, daughter Angie History 3 Elective abortions Hx Para 1 Spontaneous abortions 1 Hx # Term Pregnancies 1 Ectopic pregnancies Hx # Pregnancies Multiple births # of living children 1 Past Pregnancies Del. Date Name GA/Weeks Outcome Route Bth Weight Infant Gen Labor Lgth A daren Pereira Provider FOB 04/13/21 6 spontaneous 03/29/22 Angie 40 live - full term 7#14 Female [facility] Tammi Castro Visit Details Expected Delivery Route/Plan Labor Preferences- CB/BF classes: no labor support person: Matthew labor intervention preferences: pain management options preferred: epidural cut cord/dad catch: yes : yes PP control planned: Discussed discussed possible routes of delivery and associated risks: [] special requests: [] Plans Covid status: [] Flu vaccine: declines Tdap vaccine: [] Rhogam: NA LARC form signed: yes Problem list reviewed and updated with the most current plan of care details and appropriate orders placed. Relevant counseling for the gestational age provided. Continue routine care and follow up unless otherwise noted in visit notes/problem list details OB Flowsheet Initial Weight: 117 lb Date -?-?-?-?-?-?-?-?-?-?-?-?- EGA Weight BP Urine Prot -?-?-?-?-?-?-?-?-?-?-?-?- Glucose FHR FuHt Pres Dilation -?-?-?-?-?-?-?-?-?-?-?-?- Effaced St Visit Note 05/26/23 -?-?-?-?-?-?-?-?-?-?-?-?- 12w 4d 117 lb (+0 oz) 101/67 -?-?-?-?-?-?-?-?-?-?-?-?- 157 -?-?-?-?-?-?-?-?-?-?-?-?- LC CRL not cw LM P. ZELALEM changed to 12/04/2023. HC/AC/FL =12w4d. discussed and declines nipt. anatomy scan with [facility] due to insurance cost. 07/01/23 -?-?-?-?-?-?-?-?-?-?-?-?- 17w 5d 121 lb 8 oz (+4 lb 8 oz) 102/67 Negative -?-?-?-?-?-?-?-?-?-?-?-?- Negative -?-?-?-?-?-?-?-?-?-?-?-?- KW-no vb/crampin g. FHT with handheld US KW-no vb/cramping. FHT with handheld US. to call to schedule anatomy US 07/28/23 -?-?-?-?-?-?-?-?-?-?-?-?- w 4d 133 lb 8 oz (+16 lb 8 oz) 102/65 Negative -?-?-?-?-?-?-?-?-?-?-?-?- Negative 142 -?-?-?-?-?-?-?-?-?-?-?-?- LC- no vb/crampi ng. normal anatomy scan. no concerns. 08/27/23 -?-?-?-?-?-?-?-?--?-?-?-?- 25w 6d 138 lb 8 oz (+21 lb 8 oz) 100/62 Negative -?-?-?-?-?-?-?-?-?-?-?-?- Negative 140 -?-?-?-?-?-?-?-?-?-?-?-?- LC- no vb/ctx/lo f. good fm. 28 week labs ordered. 09/10/23 -?-?-?-?-?-?-?-?-?-?-?-?- 27w 6d 141 lb 8 oz (+24 lb 8 oz) 108/64 Negative -?-?-?-?-?-?-?-?-?-?-?-?- Negative 148 26 -?-?-?-?-?-?-?-?-?-?-?-?- MH-No VB, LOF. G ood FM. [facility]. Reviewed start FE. Needs 3 hr GTT 09/24/23 -?-?-?-?-?-?-?-?-?-?-?-?- 29w 6d 147 lb 4 oz (+30 lb 4 oz) 93/61 Negative -?-?-?-?-?-?-?-?-?-?-?-?- Negative 150 -?-?-?-?-?-?--?-?-?-?-?-?- JV- no lof, vagi nal bleeding, or dec fm. she wants to think about tdap for next visit. JV- STILL DID NOT DO GTT. no lof, vaginal bleeding, or dec fm. she wants to think about tdap for next visit. 10/09/23 -?-?-?-?-?-?-?-?-?-?-?-?- 32w 0d 149 lb (+32 lb) 107/65 -?-?-?-?-?-?-?-?-?-?-?-?- 140 29 -?-?-?-?-?-?-?-?-?-?-?-?- SM- nl 3 hr gtt no vb lof good fm no regular ctx 10/24/23 -?-?-?-?-?-?-?-?-?-?-?-?- 34w 1d 151 lb (+34 lb) 118/68 Negative -?-?-?-?-?-?-?-?-?-?-?-?- Negative 145 31 -?-?-?-?-?-?-?-?-?-?-?-?- KW- no vb/lof/ct x. good fm. growth US reviewed. 30% and normal NOEL. discussed GBS next visit 11/07/23 -?-?-?-?-?-?-?-?-?-?-?-?- 36w 1d 155 lb (+38 lb) 104/70 Trace A -?-?-?-?-?-?-?-?-?-?-?-?- Negative 140 34 Cephalic 1 -?-?-?-?-?-?-?-?-?-?-?-?- 50 -3 LC- no vb/ ctx/lof. good fm. gbs obtained. no concerns. 11/14/23 -?-?-?-?-?-?-?-?-?-?-?-?- 37w 1d 157 lb 2 oz (+40 lb 2 oz) 118/72 Negative -?-?-?-?-?-?-?-?-?-?-?-?- Negative 138 35.5 Cephalic 1 -?-?-?-?-?-?-?-?-?-?-?-?- 50 -3 LC- no vb/ ctx/lof. good fm. GBS positive 11/21/23 -?-?-?-?-?-?-?-?-?-?-?-?- 38w 1d 158 lb (+41 lb) 109/69 Negative -?-?-?-?-?-?-?-?-?-?-?-?- Negative 145 34 Cephalic -?-?-?-?-?-?-?-?-?-?-?-?- SM- no vb lof go od fm no regular ctx 11/25/23 -?-?-?-?-?-?-?-?-?-?-?-?- 38w 5d 159 lb 2 oz (+42 lb 2 oz) 118/70 Negative -?-?-?-?-?-?-?-?-?-?-?-?- Negative 140 35 Cephalic 2 -?-?-?-?-?-?-?-?-?-?-?-?- 70 -2 KW- no vb/ lof/ctx. Reviewed US. decrease FM but still getting 10 movements in 2 hours. NST today. KW- no vb/lof/ctx. Reviewed US. decrease FM but still getting 10 movements in 2 hours. NST today-not reactive. to WP NST FHR Rate Baby A Baseline: 130 Variability:: Moderate Accelerations:: 15 x 15 Decelerations:: None NST Reactive:: Yes FHR Category:: Category I Uterine Activity:: irregular ROS Constitutional Constitutional: Reports systems reviewed and no addt'l complaints, except as documented Eyes Eyes: Denies change in vision ENT HEENT: Reports systems reviewed and no addt'l complaints, except as documented; Denies headache(s) Cardiovascular Cardiovascular: Reports systems reviewed and no addt'l complaints, except as documented; Denies chest pain or dyspnea Respiratory/Chest Respiratory/Chest: Reports systems reviewed and no addt'l complaints, except as documented Gastrointestinal Gastrointestinal: Reports systems reviewed and no addt'l complaints, except as documented; Denies abdominal pain Genitourinary Genitourinary: Reports systems reviewed and no addt'l complaints, except as documented, contractions Details: present (irregular) and movement Details: present; Denies dysuria or genital lesions Musculoskeletal Musculoskeletal: Reports systems reviewed and no addt'l complaints, except as documented Neurologic Neurologic: Reports systems reviewed and no addt'l complaints, except as documented Endocrine Endocrinology: Reports systems reviewed and no addt'l complaints, except as documented Vital Signs Vital Signs Vital Signs: 11/25/23 13:11 11/25/23 13:11 11/25/23 13:11 Temperature Temperature Source Pulse Rate 85 89 Respiratory Rate Blood Pressure 116/71 BP Systolic 116 BP Diastolic 71 Pulse Ox 11/25/23 13:11 11/25/23 13:12 11/25/23 13:12 Temperature Temperature Source Temporal Pulse Rate Respiratory Rate 19 H Blood Pressure BP Systolic BP Diastolic Pulse Ox 98 11/25/23 13:12 11/25/23 14:24 11/25/23 14:24 Temperature 98.1 F Temperature Source Pulse Rate 91 Respiratory Rate Blood Pressure 113/66 BP Systolic 113 BP Diastolic 66 Pulse Ox 11/25/23 14:23 11/25/23 14:23 11/25/23 14:23 Temperature 98.5 F Temperature Source Temporal Pulse Rate Respiratory Rate 18 Blood Pressure BP Systolic BP Diastolic Pulse Ox 11/25/23 16:22 11/25/23 16:22 11/25/23 16:24 Temperature Temperature Source Pulse Rate 77 75 Respiratory Rate Blood Pressure 118/61 BP Systolic 118 BP Diastolic 61 Pulse Ox 11/25/23 16:24 11/25/23 16:23 11/25/23 16:23 Temperature Temperature Source Temporal Pulse Rate Respiratory Rate 18 Blood Pressure BP Systolic BP Diastolic Pulse Ox 99 11/25/23 16:23 11/25/23 17:30 11/25/23 17:30 Temperature 98.7 F Temperature Source Temporal Pulse Rate Respiratory Rate Blood Pressure 122/61 H BP Systolic 122 BP Diastolic 61 Pulse Ox 11/25/23 17:30 11/25/23 17:30 11/25/23 17:30 Temperature 98.5 F Temperature Source Pulse Rate 86 Respiratory Rate 16 Blood Pressure BP Systolic BP Diastolic Pulse Ox 11/25/23 18:38 11/25/23 18:39 11/25/23 18:39 Temperature Temperature Source Temporal Pulse Rate 91 Respiratory Rate Blood Pressure 114/61 BP Systolic 114 BP Diastolic 61 Pulse Ox 11/25/23 18:38 11/25/23 18:38 11/25/23 19:17 Temperature 98.8 F Temperature Source Pulse Rate Respiratory Rate 19 H Blood Pressure 97/53 L BP Systolic 97 BP Diastolic 53 Pulse Ox 11/25/23 19:17 11/25/23 19:17 11/25/23 19:20 Temperature Temperature Source Pulse Rate 82 85 Respiratory Rate Blood Pressure BP Systolic BP Diastolic Pulse Ox 96 11/25/23 19:16 11/25/23 19:20 11/25/23 19:16 Temperature 99.1 F Temperature Source Pulse Rate Respiratory Rate 16 Blood Pressure BP Systolic BP Diastolic Pulse Ox 94 Weight Weight: 158 lb 11.725 oz Body Mass Index (BMI) 28.0 Physical Exam Const alert, oriented x3, no apparent distress and healthy appearing HEENT normocephalic and moist oral mucous membranes Head and Scalp: atraumatic Neck full ROM, no lymphadenopathy, supple and thyroid normal General: trachea midline Lymph Lymphatic: no lymphadenopathy noted Chest inspection of chest normal Resp normal respiratory effort Cardio regular rate GI normal to inspection, nondistended, normoactive bowel sounds, soft to palpation and non-tender Inspection: gravid external exam normal Manual OB Exam: estimated gestational size appropriate, presentation cephalic, dilated, effaced and station Extremity normal to inspection General Extremity: Negative for edema Skin no rashes or lesions noted Neuro no focal motor deficits and deep tendon reflexes 2+ bilaterally Motor Exam: strength 5/5 throughout and clonus absent Psych mental status grossly normal Labs Labs Labs: Blood Type A POSITIVE Antibody Screen NEGATIVE Hct 34.2 % (37-47) L Hgb 10.2 g/dL (12.0-15.0) L Obstetrics Ultrasound Syphilis Total Ab Non-reactive Rubella IgG Antibody Reactive (Nonreactive) Hep Bs Antigen Non-Reactive (Nonreactive) Hepatitis C Antibody Non-Reactive (Nonreactive) Chlamydia DNA (MAYRA) Negative (Negative) N.gonorrhoeae DNA (MAYRA) Negative (Negative) HIV 1&2 Antibody Non-Reactive (Nonreactive) Glucose 1 Hr 50 gm 138 mg/dL (70-140) Gest Glucose Tolerance MG/DL Assessment & Plan (1) : QUALIFIERS: Weeks of gestation: 38 weeks Qualified Code(s): Z3A.38 - 38 weeks gestation of COMMENT: declines nipt,carrier and ntd. reviewed anatomy. +placenta lakes. (2) History of depression: COMMENT: without medications/counseling (3) Supervision of high-risk : QUALIFIERS: Trimester: second trimester Qualified Code(s): O09.92 - Supervision of high risk , unspecified, second trimester COMMENT: [id number] Zelalem 12/04/2021 girl PC: Angie. partner: matthew (4) Placental abnormality: QUALIFIERS: Trimester: second trimester Qualified Code(s): O43.102 - Malformation of placenta, unspecified, second trimester COMMENT: placenta lakes seen (5) Abnormal glucose affecting : COMMENT: 3HR-passed (6) Anemia during : COMMENT: add FE (7) Uterine size-date discrepancy, third trimester: COMMENT: noted shortened long bone on US. consider IOL at 39 weeks. growth US (30%) normal noel at 34 weeks (8) Positive GBS test: COMMENT: treatment in labor. PCN (9) Decreased movements in third trimester: PLAN: Plan Patient presents IOL, plan management for with pitocin/AROM. Pain management: Plans epidural. GBS plan penicillin Management of any complications: None I have reviewed the [facility] and made any clinically relevant updates. 11/26/23 0132 <Electronically signed by Peggy Jauregui MD> Cosigner Signature (if applicable): CC: Dr. Peggy Jauregui MD; No Primary Care Physician~ Signed [facility] Work Phone: 1(478) 961-176109-25-2023 NotePap Smear Specimen AdequacySeptember 2022 4:22pmComment.Satisfactory for evaluation. Endocervical and/or squamous metaplasticcells (endocervical component)are present.[facility] INTERFACED A#[id number] HealthComment on above:Satisfactory for evaluation. Endocervical and/or squamous metaplasticcells (endocervical component)are present.05-26-2023 NotePap Smear Specimen AdequacySeptember 2022 4:22pmComment.Satisfactory for evaluation. Endocervical and/or squamous metaplasticcells (endocervical component)are present.[facility] INTERFACED A#[id number] HealthComment on above:Satisfactory for evaluation. Endocervical and/or squamous metaplasticcells (endocervical component)are present.05-03-2023 Miscellaneous Notes* Telephone Encounter - Mary Gilbert RN - 05/03/2023 9:26 AM EDT Patient notified of results. Patient verbalizes understanding. Mary Gilbert RN * Telephone Encounter - Kassandra Chavez LPN - 05/03/2023 9:23 AM EDT Left message for patient to return call. Kassandra Chavez LPN * Telephone Encounter - Kassandra Chavez LPN - 05/03/2023 9:21 AM EDT ----- Message from Brittany Verma APRN.TEMPLATE FITTER sent at 05/03/2023 8:12 AM EDT ----- Please advise patient the COVID, flu, RSV test was negative. [facility]23 NoteHNO ID: [id number] Author: Nolberto Hunt APRN.ELINOR Service: ? Author Type: Nurse Practitioner Type: Progress Notes Filed: 05/02/2023 6:13 PM Note Text: Subjective HPI Nontoxic-appearing female presents urgent care accompanied by significant other. Patient states she is . Is in her first trimester. Has not seen FACTORER yet. Chief complaint flulike symptoms. Duration of [...] of care. This note was generated using [employer] software. It may contain errors in wording, punctuation, or spelling. Nolberto Hunt APRN.CNPMercy [facility]09-01-2023 NoteHNO ID: [id number] Author: Umm Santana APRN.TEMPLATE FITTER Service: ? Author Type: Nurse Practitioner Type: Progress Notes Filed: 05/02/2023 6:13 PM Note Text: Subjective The history is provided by the patient. No assistant speech language pathologist was used. HPI Pete Stewart is a 27 year old female who [...] have confirmed and edited as necessary, the [facility] ROS Objective [facility]amMer[facility]04-11-2023 Miscellaneous Notes* Telephone Encounter - Mary Gilbert RN - 12/10/2022 8:49 AM EDT Patient notified of results and provider's instructions. Patient verbalizes understanding. Mary Gilbert RN * Telephone Encounter - Sandra Kirby RN - 12/10/2022 8:40 AM EDT Call placed to patient with no answer. Message left to return call and ask to speak to a triage nurse to receive provider's message. Sandra Kirby RN * Telephone Encounter - Letty Bird APRN.CNP - 12/10/2022 8:08 AM EDT Please let patient know her iron is low. I would like her to start ferrous sulfate 325mg daily. This medication is constipating so I would like her to take miralax 17gram daily since she already has constipation issue. documented [facility]Ge[facility]04-10-2023 NoteHNO ID: [id number] Author: Letty Bird APRN.CNP Service: ? Author Type: Nurse Practitioner Type: Progress Notes Filed: 12/09/2022 1:40 PM Note Text: Chief Complaint Patient presents with: [facility] HPI Pete Stewart is a 27 year old female who presents here today for Above Complaints.. [facility]. Patient has a 9 month old baby [...] diet of 1000 mg/day for under 50, 9782-8978 mg/day for 50+ - Depression screening tool [...] IRON + TIBC - FERRITIN BLD Letty Bird APRN.CNPMer[facility]04-10-2023 Instructions* Patient Instructions* Letty Bird APRN.CNP - 12/09/2022 1:05 PM EDT Complete labwork Follow up in 1 year documented [facility]Ge[facility]04-10-2023 History of Present illness Narrative* Letty Bird APRN.CNP - 12/09/2022 12:51 PM EDT Chief Complaint Patient presents with: [facility] HPI Pete Stewart is a 27 year old female who presents here today for Above Complaints.. [facility]. Patient has a 9 month old baby at home. She is not currently . Patient reports she has blood in her stool intermittently and is when she wipes howevershe also notices blood in the toilet occasionally. [...] diet of 1000 mg/day for under 50, 1200- 1500 mg/day for 50+ - Depression screening tool [...] IRON + TIBC - FERRITIN BLD Letty Bird APRN.ELINOR [facility] noteNo assessment information availableWVeterans Health Administration Work Phone: evaluation note* Diagnosis Onset Date Resolution Status 38 weeks gestation of acute False labor acute Anemia affecting a cute Spontaneous rupture of membranes acute Vaginal delivery [facility] Work Phone: evaluation note* Diagnosis Encounter for lipid screening for cardiovascular disease- Primary Screening for lipoid disorders Screening for diabetes mellitus Wellness examination Fatigue, unspecified type documented in this encounter [facility] note* Diagnosis Onset Date Resolution Status History of depression acute [facility] Work Phone: evaluation note* Diagnosis Onset Date Resolution Status History of depression acute acute History of depression acute Placental abnormality acute acute Supervision of high-risk acute History of depression acute Placental abnormality acute acute Supervision of high-risk acute Abnormal glucose affecting acute Anemia during acut e History of depression acute Placental abnormality acute acute Supervision of high-risk [facility] Work Phone: evaluation note* Diagnosis Onset Date Resolution Status History of depression acute acute History of depression acute Placental abnormality acute acute Supervision of high-risk acute History of depression acute Placental abnormality acute acute Supervision of high-risk acute Abnormal glucose affecting acute Anemia during acut e History of depression acute Placental abnormality acute acute Supervision of high-risk acute Abnormal glucose affecting acute Anemia during acut e History of depression acute Placental abnormality acute acute Supervision of high-risk [facility] Work Phone: evaluation note* Diagnosis Onset Date Resolution Status History of depression acute acute History of depression acute Placental abnormality acute acute Supervision of high-risk acute History of depression acute Placental abnormality acute acute Supervision of high-risk acute Abnormal glucose affecting acute Anemia during acut e History of depression acute Placental abnormality acute acute Supervision of high-risk acute Abnormal glucose affecting acute Anemia during acut e History of depression acute Placental abnormality acute acute Supervision of high-risk acute Abnormal glucose affecting acute Anemia during acut e History of depression acute Placental abnormality acute acute Supervision of high-risk acute Uterine size-date discrepancy, third trimester acute [facility] Work Phone: Evaluation note* Diagnosis Onset Date Resolution Status History of depression acute Placental abnormality acute acute Supervision of high-risk acute History of depression acute Placental abnormality acute acute Supervision of high-risk acute Abnormal glucose affecting acute Anemia during acut e History of depression acute Placental abnormality acute acute Supervision of high-risk acute Abnormal glucose affecting acute Anemia during acut e History of depression acute Placental abnormality acute acute Supervision of high-risk acute Abnormal glucose affecting acute Anemia during acut e History of depression acute Placental abnormality acute acute Supervision of high-risk acute Uterine size-date discrepancy, third trimester acute Abnormal glucose affecting acute Anemia during acut e History of depression acute Placental abnormality acute acute Supervision of high-risk acute Uterine size-date discrepancy, third trimester acute History of depression acute Placental abnormality acute acute Supervision of high-risk acute [facility] Work Phone: Evaluation note* Diagnosis Onset Date Resolution Status History of depression acute Placental abnormality acute acute Supervision of high-risk acute History of depression acute Placental abnormality acute acute Supervision of high-risk acute Abnormal glucose affecting acute Anemia during acut e History of depression acute Placental abnormality acute acute Supervision of high-risk acute Abnormal glucose affecting acute Anemia during acut e History of depression acute Placental abnormality acute acute Supervision of high-risk acute Abnormal glucose affecting acute Anemia during acut e History of depression acute Placental abnormality acute acute Supervision of high-risk acute Uterine size-date discrepancy, third trimester acute Abnormal glucose affecting acute Anemia during acut e History of depression acute Placental abnormality acute acute Supervision of high-risk acute Uterine size-date discrepancy, third trimester acute History of depression acute Placental abnormality acute acute Supervision of high-risk acute Abnormal glucose affecting acute Anemia during acut e History of depression acute Placental abnormality acute Positive GBS test acute acute Supervision of high-risk acute Uterine size-date discrepancy, third trimester acute Abnormal glucose affecting acute Anemia during acut e History of depression acute Placental abnormality acute Positive GBS test acute acute Supervision of high-risk acute Uterine size-date discrepancy, third trimester acute Abnormal glucose affecting acute Anemia during acut e History of depression acute Placental abnormality acute Positive GBS test acute acute Supervision of high-risk acute Uterine size-date discrepancy, third trimester acute [facility] Work Phone: Evaluation note* Diagnosis Onset Date Resolution Status History of depression acute Placental abnormality resolv ed resolved Supervision of high-risk resolved History of depression acute Abnormal glucose affecting resolved Anemia during reso lved Placental abnormality resolv ed resolved Supervision of high-risk resolved History of depression acute Abnormal glucose affecting resolved Anemia during reso lved Placental abnormality resolv ed resolved Supervision of high-risk resolved History of depression acute Abnormal glucose affecting resolved Anemia during reso lved Placental abnormality resolv ed resolved Supervision of high-risk resolved Uterine size-date discrepancy, third trimester resolved History of depression acute Abnormal glucose affecting resolved Anemia during reso lved Placental abnormality resolv ed resolved Supervision of high-risk resolved Uterine size-date discrepancy, third trimester resolved History of depression acute Placental abnormality resolv ed resolved Supervision of high-risk resolved History of depression acute Abnormal glucose affecting resolved Anemia during reso lved Placental abnormality resolv ed Positive GBS test resolved resolved Supervision of high-risk resolved Uterine size-date discrepancy, third trimester resolved History of depression acute Abnormal glucose affecting resolved Anemia during reso lved Placental abnormality resolv ed Positive GBS test resolved resolved Supervision of high-risk resolved Uterine size-date discrepancy, third trimester resolved History of depression acute Abnormal glucose affecting resolved Anemia during reso lved Placental abnormality resolv ed Positive GBS test resolved resolved Supervision of high-risk resolved Uterine size-date discrepancy, third trimester resolved History of depression acute Abnormal glucose affecting resolved Anemia during reso lved Placental abnormality resolv ed Positive GBS test resolved resolved Supervision of high-risk resolved Uterine size-date discrepancy, third trimester resolved History of depression acute Sore throat acute Vaginal delivery acute Abnormal glucose affecting resolved Anemia during reso lved Decreased movements in third trimester resolved Placental abnormality resolv ed Positive GBS test resolved resolved Supervision of high-risk resolved Uterine size-date discrepancy, third trimester resolved [facility] Work Phone: Evaluation note* Diagnosis Onset Date Resolution Status History of depression acute Placental abnormality resolv ed resolved Supervision of high-risk resolved History of depression acute Abnormal glucose affecting resolved Anemia during reso lved Placental abnormality resolv ed resolved Supervision of high-risk resolved History of depression acute Abnormal glucose affecting resolved Anemia during reso lved Placental abnormality resolv ed resolved Supervision of high-risk resolved History of depression acute Abnormal glucose affecting resolved Anemia during reso lved Placental abnormality resolv ed resolved Supervision of high-risk resolved Uterine size-date discrepancy, third trimester resolved History of depression acute Abnormal glucose affecting resolved Anemia during reso lved Placental abnormality resolv ed resolved Supervision of high-risk resolved Uterine size-date discrepancy, third trimester resolved History of depression acute Placental abnormality resolv ed resolved Supervision of high-risk resolved History of depression acute Abnormal glucose affecting resolved Anemia during reso lved Placental abnormality resolv ed Positive GBS test resolved resolved Supervision of high-risk resolved Uterine size-date discrepancy, third trimester resolved History of depression acute Abnormal glucose affecting resolved Anemia during reso lved Placental abnormality resolv ed Positive GBS test resolved resolved Supervision of high-risk resolved Uterine size-date discrepancy, third trimester resolved History of depression acute Abnormal glucose affecting resolved Anemia during reso lved Placental abnormality resolv ed Positive GBS test resolved resolved Supervision of high-risk resolved Uterine size-date discrepancy, third trimester resolved History of depression acute Abnormal glucose affecting resolved Anemia during reso lved Placental abnormality resolv ed Positive GBS test resolved resolved Supervision of high-risk resolved Uterine size-date discrepancy, third trimester resolved History of depression acute Vaginal delivery acute Abnormal glucose affecting resolved Anemia during reso lved Decreased movements in third trimester resolved Placental abnormality resolv ed Positive GBS test resolved resolved Supervision of high-risk resolved Uterine size-date discrepancy, third trimester resolved [facility] Work Phone: Progress note Author Angie Jasmine [facility] November 21, 2023 3:08pm Note Date/Time November 21, 2023 3:0 8pm [facility] Medical Records Department [address] [place] [address] OB Triage Progress Note 11/21/23 1505 MR#: [id number] Acct: [id number] Name: PETE STEWART Rep #:[id number] : 1995 28 From: Angie Jasmine CNM PCP: Care Physician,No Primary Status :REG CLI Y DOS: Location: [place] [address] Progress Notes Date of Service: 11/21/23 Progress Note: Patient presents for triage evaluation secondary to uterine size less than datesin the office. FHT: 125 Moderate variability reactive no decelerations category I tracing [place]: no Contractions Assessment and plan: normal growth and NOEL, noted shortened long bone. Reactive NST, reassuring maternal and status patient discharged to home to follow-up in the office. See problem list details for additional plan information. Charges/Coding Multi Select Codes Urinary/Genital Urinary/Genital CPT Codes: 53688-70 non-stress test Interp Assessment & Plan (1) Positive GBS test: COMMENT: treatment in labor. PCN (2) Uterine size-date discrepancy, third trimester: COMMENT: noted shortened long bone on US. consider IOL at 39 weeks. growthUS (30%) normal noel at 34 weeks (3) Anemia during : COMMENT: add FE (4) Abnormal glucose affecting : COMMENT: 3HR-passed (5) Placental abnormality: QUALIFIERS: Trimester: second trimester Qualified Code(s): O43.102 - Malformation of placenta, unspecified, second trimester COMMENT: placenta lakes seen (6) Supervision of high-risk : QUALIFIERS: Trimester: second trimester Qualified Code(s): O09.92- Supervision of high risk , unspecified, second trimester COMMENT: [id number] [place] 12/04/2023 girl PC: Angie. partner: matthew (7) History of depression: COMMENT: without medications/counseling (8) : QUALIFIERS: Weeks of gestation: 38 weeks Qualified Code(s): Z3A.38 - 38 weeks gestation of COMMENT: declines nipt,carrier and ntd. reviewed anatomy. +placenta lakes. 11/21/23 1508 <Electronically signed by Angie dumont CNM> Date _ Angie Jasmine CNM Cosigner Signature (if applicable): Date CC: [place] Jasmine; No Primary Care Physician ~ Signed [facility] Work Phone: Summary Purpose Family History No Family History Records Found Relationship Condition Age at Onset Recorded Date/T beth Not Specified History of third molar tooth extraction Unknown Advance Directives No Advanced Directives Records Found Advance Directive Response Recorded Date/ Time Living Will No April 12 1:33pm Power of Pawn Broker No April 12 021 1:33pm Advance Directive Response Recorded Date/ Time Living Will No March 29, 2022 12:37am Power of Pawn Broker No March 29 2 12:37am Advance Directive Response Recorded Date/ Time Living Will No March 28, 2022 11:37pm Power of Pawn Broker No March 28 2 11:37pm Advance Directive Response Recorded Date/ Time Living Will No November 21, 2023 3:24pm Power of Pawn Broker No November 20 3:24pm Advance Directive Response Recorded Date/ Time Living Will No November 25, 2023 1:30pm Power of Pawn Broker No November 24 1:30pm Advance Directive Response Recorded Date/ Time Living Will No December 04, 2023 10:29am Power of Pawn Broker No December 03 10:29am Chief Complaint and Reason for Visit Chief Complaint R/O LABOR Chief Complaint R/O LABOR VAGINAL DELIVERY Reason for Visit 38 weeks gestation o f False labor Anemia affecting Spontaneous rupture of membranes Vaginal delivery Chief Complaint NOB 18 WK OB ANATOMY SCAN Reason for Visit History of postpartu m depression Chief Complaint NOB 18 WK OB ANATOMY SCAN 21 WK OB 25 WK OB 28 WK OB, GLUCOSE YESTERDAY Reason for Visit History of postpartu m depression History of depression Placental abnormality Supervision of high-risk History of depression Placental abnormality Supervision of high-risk Abnormal glucose affecting Anemia during History of depression Placental abnormality Supervision of high-risk Chief Complaint 18 WK OB ANATOMY SCAN 21 WK OB 25 WK OB 28 WK OB, GLUCOSE YESTERDAY 30 WK OB SCREEN FOR GESTATIONAL DM Reason for Visit History of postpartu m depression History of depression Placental abnormality Supervision of high-risk History of depression Placental abnormality Supervision of high-risk Abnormal glucose affecting Anemia during History of depression Placental abnormality Supervision of high-risk Abnormal glucose affecting Anemia during History of depression Placental abnormality Supervision of high-risk Chief Complaint 18 WK OB ANATOMY SCAN 21 WK OB 25 WK OB 28 WK OB, GLUCOSE YESTERDAY 30 WK OB SCREEN FOR GESTATIONAL DM 32 WK OB UTERINE SIZE-DATE DISCREPENCY Reason for Visit History of postpartu m depression History of depression Placental abnormality Supervision of high-risk History of depression Placental abnormality Supervision of high-risk Abnormal glucose affecting Anemia during History of depression Placental abnormality Supervision of high-risk Abnormal glucose affecting Anemia during History of depression Placental abnormality Supervision of high-risk Abnormal glucose affecting Anemia during History of depression Placental abnormality Supervision of high-risk Uterine size-date discrepancy, third trimester Chief Complaint ANATOMY SCAN 21 WK OB 25 WK OB 28 WK OB, GLUCOSE YESTERDAY 30 WK OB SCREEN FOR GESTATIONAL DM 32 WK OB UTERINE SIZE-DATE DISCREPENCY 34 WK OB 36 WK OB Reason for Visit History of postpartu m depression Placental abnormality Supervision of high-risk History of depression Placental abnormality Supervision of high-risk Abnormal glucose affecting Anemia during History of depression Placental abnormality Supervision of high-risk Abnormal glucose affecting Anemia during History of depression Placental abnormality Supervision of high-risk Abnormal glucose affecting Anemia during History of depression Placental abnormality Supervision of high-risk Uterine size-date discrepancy, third trimester Abnormal glucose affecting Anemia during History of depression Placental abnormality Supervision of high-risk Uterine size-date discrepancy, third trimester History of depression Placental abnormality Supervision of high-risk Chief Complaint 21 WK OB 25 WK OB 28 WK OB, GLUCOSE YESTERDAY 30 WK OB SCREEN FOR GESTATIONAL DM 32 WK OB UTERINE SIZE-DATE DISCREPENCY 34 WK OB 36 WK OB 37 WK OB 38 WK OB GROWTH US GROWTH US Reason for Visit History of postpartu m depression Placental abnormality Supervision of high-risk History of depression Placental abnormality Supervision of high-risk Abnormal glucose affecting Anemia during History of depression Placental abnormality Supervision of high-risk Abnormal glucose affecting Anemia during History of depression Placental abnormality Supervision of high-risk Abnormal glucose affecting Anemia during History of depression Placental abnormality Supervision of high-risk Uterine size-date discrepancy, third trimester Abnormal glucose affecting Anemia during History of depression Placental abnormality Supervision of high-risk Uterine size-date discrepancy, third trimester History of depression Placental abnormality Supervision of high-risk Abnormal glucose affecting Anemia during History of depression Placental abnormality Positive GBS test Supervision of high-risk Uterine size-date discrepancy, third trimester Abnormal glucose affecting Anemia during History of depression Placental abnormality Positive GBS test Supervision of high-risk Uterine size-date discrepancy, third trimester Abnormal glucose affecting Anemia during History of depression Placental abnormality Positive GBS test Supervision of high-risk Uterine size-date discrepancy, third trimester Chief Complaint 25 WK OB 28 WK OB, GLUCOSE YESTERDAY 30 WK OB SCREEN FOR GESTATIONAL DM 32 WK OB UTERINE SIZE-DATE DISCREPENCY 34 WK OB 36 WK OB 37 WK OB 38 WK OB GROWTH US GROWTH US OB 38,5 IUGR VAG VAG VAG VAG Reason for Visit History of postpartu m depression Placental abnormality Supervision of high-risk History of depression Abnormal glucose affecting Anemia during Placental abnormality Supervision of high-risk History of depression Abnormal glucose affecting Anemia during Placental abnormality Supervision of high-risk History of depression Abnormal glucose affecting Anemia during Placental abnormality Supervision of high-risk Uterine size-date discrepancy, third trimester History of depression Abnormal glucose affecting Anemia during Placental abnormality Supervision of high-risk Uterine size-date discrepancy, third trimester History of depression Placental abnormality Supervision of high-risk History of depression Abnormal glucose affecting Anemia during Placental abnormality Positive GBS test Supervision of high-risk Uterine size-date discrepancy, third trimester History of depression Abnormal glucose affecting Anemia during Placental abnormality Positive GBS test Supervision of high-risk Uterine size-date discrepancy, third trimester History of depression Abnormal glucose affecting Anemia during Placental abnormality Positive GBS test Supervision of high-risk Uterine size-date discrepancy, third trimester History of depression Abnormal glucose affecting Anemia during Placental abnormality Positive GBS test Supervision of high-risk Uterine size-date discrepancy, third trimester History of depression Sore throat Vaginal delivery Abnormal glucose affecting Anemia during Decreased movements in third trimester Placental abnormality Positive GBS test Supervision of high-risk Uterine size-date discrepancy, third trimester Chief Complaint 25 WK OB 28 WK OB, GLUCOSE YESTERDAY 30 WK OB SCREEN FOR GESTATIONAL DM 32 WK OB UTERINE SIZE-DATE DISCREPENCY 34 WK OB 36 WK OB 37 WK OB 38 WK OB GROWTH US GROWTH US OB 38,5 IUGR VAG VAG VAG VAG BACK PAIN Reason for Visit History of postpartu m depression Placental abnormality Supervision of high-risk History of depression Abnormal glucose affecting Anemia during Placental abnormality Supervision of high-risk History of depression Abnormal glucose affecting Anemia during Placental abnormality Supervision of high-risk History of depression Abnormal glucose affecting Anemia during Placental abnormality Supervision of high-risk Uterine size-date discrepancy, third trimester History of depression Abnormal glucose affecting Anemia during Placental abnormality Supervision of high-risk Uterine size-date discrepancy, third trimester History of depression Placental abnormality Supervision of high-risk History of depression Abnormal glucose affecting Anemia during Placental abnormality Positive GBS test Supervision of high-risk Uterine size-date discrepancy, third trimester History of depression Abnormal glucose affecting Anemia during Placental abnormality Positive GBS test Supervision of high-risk Uterine size-date discrepancy, third trimester History of depression Abnormal glucose affecting Anemia during Placental abnormality Positive GBS test Supervision of high-risk Uterine size-date discrepancy, third trimester History of depression Abnormal glucose affecting Anemia during Placental abnormality Positive GBS test Supervision of high-risk Uterine size-date discrepancy, third trimester History of depression Vaginal delivery Abnormal glucose affecting Anemia during Decreased movements in third trimester Placental abnormality Positive GBS test Supervision of high-risk Uterine size-date discrepancy, third trimester Health Concerns Infection Onset Date Last Indicated Resolved Time COVID-19 Rule-Out 05/02/2023 05/02/2023 05/03/2023 5:15 AM EDT Additional Source Comments INFORMATION SOURCE (unrecogn ized section and content) DATE CREATED AUTHOR 02/24/2018 [employer] DATE CREATED AUTHOR AUTHOR'S ORGANIZ ATION 12/27/2020 [facility] DATE CREATED AUTHOR AUTHOR'S ORGANIZ ATION 05/03/2023 [facility] DATE CREATED AUTHOR AUTHOR'S ORGANIZ ATION 02/11/2024 [facility] Goals (unrecognized section and content) Goals may be documented in a n alternate sectionGoals may be documented in an alternate sectionGoals may be documented in an alternate sectionGoals may be documented in an alternate sectionGoals may be documented in an alternate sectionGoals may be documented in an alternate sectionGoals may be documented in an alternate section Source Comments (unrecognize d section and content) In the event this informatio n is protected by the Federal Confidentiality of Alcohol and Drug Abuse Patient Records regulations: The Federal rules restrict any use of the information to criminally investigate or prosecute any alcohol or drug abuse patient.[facility] the event this information is protected by the Federal Confidentiality of Alcohol and Drug Abuse Patient Records regulations: The Federal rules restrict any use of the information to criminally investigate or prosecute any alcohol or drug abuse patient.[facility] the event this information is protected by the Federal Confidentiality of Alcohol and Drug Abuse Patient Records regulations: The Federal rules restrict any use of the information to criminally investigate or prosecute any alcohol or drug abuse patient.[facility] Reason for Visit (unrecogniz ed section and content) Reason Comments Establish Care Reason Comments Results Care Teams (unrecognized sec tion and content) Furrier Shop Supervisor Relationship Specialty Start Date End Date Letty Bird APRN.CNP [address] [place] [id number] PCP - General Family Medicine 12/09/22 Furrier Shop Supervisor Relationship Specialty Start Date End Date Letty Bird APRN.CNP [address], [place] [id number] PCP - General Family Medicine 12/09/22 Furrier Shop Supervisor Relationship Specialty Start Date End Date Letty Bird APRN.CNP [address] [place] [id number] PCP - General Family Medicine 12/09/22 Team Status: Active Member Role Status Dates No Primary Care Physician Primary Care Provider Active Team Status: Inactive Member Role Status Dates Emily Johnson CNM Attending Provider Active Team Status: Inactive Member Role Status Dates Angie Jasmine CNM Attending Provider Active No Primary Care Physician Primary Care Provider, Refer ring Provider Active Team Status: Inactive Member Role Status Dates Emily Johnson CNM Attending Provider, Referring Pr ovider Active No Primary Care Physician Primary Care Provider Active Team Status: Inactive Member Role Status Dates Emily Johnson CNM Attending Provider, Referring Pr ovider Active Team Status: Inactive Member Role Status Dates No Primary Care Physician Primary Care Provider, Refer ring Provider Active Emily Johnson CNM Attending Provider Active Team Status: Inactive Member Role Status Dates No Primary Care Physician Primary Care Provider, Refer ring Provider Active Marilu Ballesteros COMMISSARY WORKER, COMMISSARY WORKER-C Attending Provider Active Team Status: Inactive Member Role Status Dates No Primary Care Physician Primary Care Provider Active Marilu Ballesteros COMMISSARY WORKER, COMMISSARY WORKER-C Attending Provider, Referring Provider Active Team Status: Inactive Member Role Status Dates No Primary Care Physician Primary Care Provider, Refer ring Provider Active Dr. Dayami De DO Attending Provider Activ e Team Status: Inactive Member Role Status Dates No Primary Care Physician Primary Care Provider Active Marilu Ballesteros COMMISSARY WORKER, COMMISSARY WORKER-C Attending Provider, Referring Provider Active Dr. Dayami De DO Other Provider Active Team Status: Inactive Member Role Status Dates No Primary Care Physician Primary Care Provider, Refer ring Provider Active Dr. Peggy Jauregui MD Attending Provider Active Team Status: Inactive Member Role Status Dates No Primary Care Physician Primary Care Provider Active Dr. Peggy Jauregui MD Attending Provider, Referr ing Provider Active Team Status: Inactive Member Role Status Dates No Primary Care Physician Primary Care Provider, Refer ring Provider Active Angie Jasmine CNM Attending Provider Active Team Status: Inactive Member Role Status Dates No Primary Care Physician Primary Care Provider Active Emily Johnson CNM Attending Provider, Referring Pr ovider Active Team Status: Active Member Role Status Dates No Primary Care Physician Primary Care Provider Active Angie Jasmine CNM Attending Provider, Referring Provider, Other Provider Active Team Status: Inactive Member Role Status Dates No Primary Care Physician Primary Care Provider Active Angie Jasmine CNM Attending Provider, Referring Pro vider Active Team Status: Active Member Role Status Dates No Primary Care Physician Primary Care Provider Active Dr. Peggy Jauregui MD Admit Provid er, Attending Provider, Other Provider Active Team Status: Active Member Role Status Dates No Primary Care Physician Primary Care Provider Active Dr. Peggy Jauregui MD Admit Provider, Other Prov ider Active Marilu Ballesteros COMMISSARY WORKER, COMMISSARY WORKER-C Attending Provider Active Team Status: Inactive Member Role Status Dates No Primary Care Physician Primary Care Provider Active Dr. Peggy Jauregui MD Admit Provider, Attending Provider Active Team Status: Inactive Member Role Status Dates No Primary Care Physician Primary Care Provider Active Dr. Dayami Urbina MD Emergency Provider Active FOR RECORDS PERTAINING TO PATIENTS WHO ARE [...] BE BASED ON THE PRIMARY CLINICAL RECORDS. [facility]. provides no warranty or guarantee of the accuracy or completeness of information in this document.
[2025-08-17 22:55] VITALS: BP 111/80; PULSE 85; RESP 18; TEMP 36.6; O2SAT 98
== END 2025-08-17 22:56 | disposition home or self-care (01) ==
LOC: ED 22:51
PROVIDERS: Emergency Provider Emergency Medicine; Visit Provider Emergency Medicine
DX: J02.9 Acute pharyngitis, unspecified (principal); H92.09 Otalgia, unspecified ear; H69.92 Unspecified Eustachian tube disorder, left ear; B34.9 Viral infection, unspecified; R05.9 Cough, unspecified
CPT/HCPCS: 99282